=== PATIENT | female | born 1945 | race Caucasian/White ===

== ENCOUNTER 2016-03-27 11:05 | Observation (INO) ==
[2016-03-27] MEDS ORDERED: Ipratropium/Albuterol Neb 3 ML IH ONE (11:10)
[2016-03-27] MEDS ORDERED: methylPREDNISolone 125 MG/2 ML VIAL IVP ONE (11:10)
--- NOTE | 2016-03-27 11:12 | Emergency Department Note ---
Disposition Clinical Impression: Acute exacerbation of chronic obstructive pulmonary disease Disposition: Admitted As Inpatient Time of Disposition: 12:25 SOB HPI - General Chief Complaint: ED Shortness of Breath/Dyspnea Stated Complaint: SOB Source: patient Mode of arrival: ambulatory Limitations: no limitations Nursing Notes Reviewed: Yes Vital Signs Reviewed: Yes - History of Present Illness 70-year-old female history of COPD on 4 L nasal cannula, her baseline, patient expresses full code, patient with shortness of breath for last 3 days she has had worsening productive cough, she was seen in the emergency department last night. She came from home, she is been treated with azithromycin and prednisone , however has had worsening shortness of breath last few days. Brought in by EMS EMS did deliver one DuoNeb treatment. Patient states that she has intermittent shortness of breath associated with some chest pain and discomfort. Patient reports subjective fevers at home, denies abdominal pain nausea vomiting Pt Subjective Complaint: shortness of breath Onset (ago): day(s) (4) Severity: moderate Consistency/Duration: intermittent Improves with: oxygen Worsens with: lying flat, exertion Known history of: COPD Associated symptoms: Reports: fever, cough, wheezing, sputum production. Denies : chest pain Treatment prior to arrival: oxygen Cough present: Yes Cough Frequency: Continuous Sputum production: Yes Sputum Amount: Scant Sputum Color: White - Related Data Home oxygen amount: 4 liters Home Medications Medication Instructions Recorded Confirmed Oxygen 4 l NS CONT 10/26/14 03/27/16 Hydrocodone/Acetaminophen 1 tab PO QID PRN 04/12/15 03/27/16 [Hydrocodon-Acetaminophn 10-325] Duloxetine [Cymbalta] 30 mg PO DAILY 08/12/15 03/27/16 Albuterol Neb [Proventil Neb] 2.5 mg IH Q6H PRN 03/27/16 03/27/16 Albuterol Sulfate [Albuterol 2 puff IH Q4H PRN 03/27/16 03/27/16 Inhaler] Pregabalin [Lyrica] 50 mg PO DAILY 03/27/16 03/27/16 Tiotropium [Spiriva] 18 mcg IH DAILY 03/27/16 03/27/16 Allergies Allergy/AdvReac Type Severity Reaction Status Date / Time Sulfa (Sulfonamide Allergy Swelling Verified 02/05/16 18:58 Antibiotics) of Lip/Tongue/Throat Review of Systems: A 14 point ROS was obtained and was negative except as per below or as documented in the HPI. Constitutional: Denies: fever, chills, weakness, weight change Eyes: Denies: eye pain, eye discharge, vision change ENT: Denies: ear pain, throat pain, hearing loss, epistaxis, congestion, Cardiovascular: Denies: chest pain, palpitations, dyspnea on exertion, edema, syncope Respiratory: cough, dyspnea, wheezes Denies:, hemoptysis, stridor Gastrointestinal: Denies: abdominal pain, nausea, vomiting. diarrhea, constipation, hematemesis, hematochezia Genitourinary: Denies: urgency, dysuria, frequency, hematuria Musculoskeletal: Denies: back pain, neck pain, arthralgia, myalgia Integumentary: Denies: rash, abrasion, lesions Neurological: Denies: headache, weakness, numbness, paresthesias, confusion, abnormal gait Psychiatric: Denies: anxiety, depression, suicidal thoughts, homicidal thoughts , Endocrine: Denies: fatigue Hematological/Lymphatic: Denies: easy bleeding, easy bruising Allergic/Immunologic: Denies: facial swelling, urticaria All systems ED: reviewed and negative except as stated. Past Medical History - Past Medical History Attestation: Yes The following information was validated with the patient. Source: patient Medical history: Reports: arthritis, asthma, cancer (lung - S/P Chemo and radiation therapy, here and at [facility]. In remission), COPD, GERD, hyperlipidemia, hypertension, other Surgical history: Reports: hip replacement, other Psychiatric history: Reports: anxiety, depression DIRECTOR OF REIMBURSEMENT history: Reports: no DIRECTOR OF REIMBURSEMENT history - Social History Smoking Status: Current every day smoker Smokeless Tobacco Status: No Alcohol use: Reports: none Drug use: Reports: none Physical Exam General: Cachectic female appears older than her stated age mod resp distress Head: NCAT, no lesions Eyes: sclera anicteric, conjunctiva normal, PERRLA bilaterally, EOMI Bilaterally Ears: normal inspection, external ear wnl Nose: nasal septum nondeviated, sinuses nontender Throat: good dentition, mucous membranes moist Neck: no lymphadenopathy, trachea midline no deviation, no JVD Resp: Diffuse wheezes, diffuse breath sounds bilaterally. CV: RRR, normal S1 and S2, no m/g/r, Pulses +2 Rad, +2 DP/PT Abdomen: Soft, NTND, no hepatosplenomegaly, no hernias, Negative Rovsing's sign , Negative Hess's sign Back: normal inspection, no tenderness to palpation, Negative CVA tenderness bilaterally Neuro: A&O3, CN II-XII grossly intact bilaterally, no motor or sensory deficits bilaterally, gait normal, GCS 15 [id number] Ext: normal inspection, symmetric Active and Passive ROM UE and LE bilaterally , no pedal edema bilaterally Psych: normal mood, normal affect Skin: No rashes, skin warm, dry, intact Course Course Narrative: 70-year-old female with acute exacerbation of COPD, will anabella treatments and steroids, reassess. - Reevaluation(s) Reevaluation #1: Troponin negative, white count negative, patient does have diffuse wheezes after reassessment with redo, she was more diminished prior to the breathing treatment, her sats 100% on room air, I do suspect that she is worsened, social work has evaluated the patient at bedside, will admit to medicine service for COPD exacerbation and SNF placement. Time: 12:26 Reevaluation #2: Admitted Dr Mustafa Time: 12:26 Vital Signs Temperature 98.2 F 03/27/16 11:22 Pulse Rate 89 03/27/16 11:22 Respiratory Rate 24 03/27/16 11:22 Blood Pressure 149/92 03/27/16 11:22 O2 Sat by Pulse Oximetry 100 03/27/16 11:22 Temperature 98.2 F 03/27/16 11:22 Pulse Rate 89 03/27/16 11:22 Respiratory Rate 24 03/27/16 12:23 Blood Pressure 149/92 03/27/16 11:22 O2 Sat by Pulse Oximetry 100 03/27/16 12:23 Oxygen Delivery Oxygen Delivery Nasal Cannula Shortness of Breath/Dyspnea - Differential Diagnosis Likely: acute exacerbation of chronic obstructive airways disease, congestive heart failure, pulmonary embolism - Medical Records Medical records reviewed: Yes I reviewed the patient's medical records. - Lab Data Lab results reviewed: Yes I reviewed the patient's lab results. Result diagrams: 03/27/16 11:31 03/27/16 11:31 Lab Results 03/27/16 03/27/16 03/27/16 Range/Units 11:31 11:31 11:31 WBC 5.6 (4.3-11.1) K/mcL RBC 4.52 (3.82-4.97) M/mcL Hgb 14.1 (11.5-15.4) g/dL Hct 42.4 (35.3-44.9) % MCV 93.8 (83.0-100.0) fL MCH 31.2 (28.0-33.3) pg MCHC 33.3 (31.6-35.5) g/dL RDW 13.4 (11.5-14.5) % Plt Count 292 (140-400) K/mcL MPV 8.8 L (9.4-12.4) fL Immature Gran % 0.4 (0-4) % Seg Neutrophils % 76.9 % Lymphocytes % 13.7 % Monocytes % 8.1 % Eosinophils % 0.5 % Basophils % 0.4 % Neutrophils # 4.3 (1.6-8.9) K/mcL Lymphocytes # 0.8 (0.6-4.6) K/mcL Monocytes # 0.5 (0.0-1.3) K/mcL Eosinophils # 0.0 (0.0-0.6) K/mcL Basophils # 0.0 (0.0-0.2) K/mcL PT 10.2 (9.4-12.1) Seconds INR 1.0 APTT 28.6 (26.0-36.0) Seconds Sodium 127 L (136-145) mEq/L Potassium 4.0 (3.5-4.5) mEq/L Chloride 91 L (98-109) mEq/L Carbon Dioxide 29 (19-29) mEq/L BUN 10 (7-20) mg/dL Creatinine 0.59 (0.57-1.11) mg/dL Est GFR ( Amer) > 60 (> 60) Est GFR (Non-Af Amer) > 60 (> 60) BUN/Creatinine Ratio 17 (6-26) Glucose 96 (70-99) mg/dL Calculated Osmolality 263 L (280-300) Lactic Acid (0.5-2.2) mmol/L Calcium 9.7 (8.6-10.8) mg/dL Troponin I (0-0.03) ng/mL B-Natriuretic Peptide (0-100) pg/mL 03/27/16 03/27/16 03/27/16 Range/Units 11:31 11:31 11:31 WBC (4.3-11.1) K/mcL RBC (3.82-4.97) M/mcL Hgb (11.5-15.4) g/dL Hct (35.3-44.9) % MCV (83.0-100.0) fL MCH (28.0-33.3) pg MCHC (31.6-35.5) g/dL RDW (11.5-14.5) % Plt Count (140-400) K/mcL MPV (9.4-12.4) fL Immature Gran % (0-4) % Seg Neutrophils % % Lymphocytes % % Monocytes % % Eosinophils % % Basophils % % Neutrophils # (1.6-8.9) K/mcL Lymphocytes # (0.6-4.6) K/mcL Monocytes # (0.0-1.3) K/mcL Eosinophils # (0.0-0.6) K/mcL Basophils # (0.0-0.2) K/mcL PT (9.4-12.1) Seconds INR APTT (26.0-36.0) Seconds Sodium (136-145) mEq/L Potassium (3.5-4.5) mEq/L Chloride (98-109) mEq/L Carbon Dioxide (19-29) mEq/L BUN (7-20) mg/dL Creatinine (0.57-1.11) mg/dL Est GFR ( Amer) (> 60) Est GFR (Non-Af Amer) (> 60) BUN/Creatinine Ratio (6-26) Glucose (70-99) mg/dL Calculated Osmolality (280-300) Lactic Acid 0.8 (0.5-2.2) mmol/L Calcium (8.6-10.8) mg/dL Troponin I 0.00 (0-0.03) ng/mL B-Natriuretic Peptide 75 (0-100) pg/mL - Radiology Data Radiology results reviewed: Yes I reviewed the patient's radiology results. Chest X-Ray 03/27/16 11:10 IMPRESSION: Stable chest. Stable volume loss and opacification in the right upper lobe. Moderate emphysematous changes. D/ / 03/27/2016 11:39:34 Juventino Boston MD / [email or web address] Interpreting Provider: Juventino Boston MD - EKG Data EKG attestation: Yes I reviewed and interpreted this EKG. EKG shows normal: Reports: sinus rhythm (97 bpm UT 143 QRS [address]Tc [address] segment elevations or depressions) Rate: Reports: normal Rhythm: Reports: NSR [place]/QRS: Reports: normal When compared to previous EKG there are: no significant changes Interpretation: Reports: no acute changes Attestation Statement - Attestation Attestation: I examined this patient and my medical decision-making was reviewed with the DECORATOR INSPECTOR/PA/Advanced Practice Nurse/Resident Physician. I agree with the documented findings, disposition and treatment plan as described except to the extent set forth below. Patient emergency department difficulty in breathing. Patient has a long- standing history of COPD. Seen recently for the same. Not getting any better. Cough. On exam she is coughing. Lungs with diffuse expiratory wheezing. Heart tachycardia but regular. Plan. Nebs and steroids. Patient failed outpatient treatment. Will be admitted to the hospital.
[2016-03-27 11:41] LABS: Basophils % 0.4 %; Eosinophils % 0.5 %; Hematocrit 42.4 % (35.3-44.9); Hemoglobin 14.1 g/dL (11.5-15.4); Immature Granulocytes % 0.4 % (0-4); Lymphocytes # 0.8 K/mcL (0.6-4.6); Lymphocytes % 13.7 %; Mean Corpuscular HGB Conc 33.3 g/dL (31.6-35.5); Mean Corpuscular Hemoglobin 31.2 pg (28.0-33.3); Mean Corpuscular Volume 93.8 fL (83.0-100.0); Mean Platelet Volume 8.8 fL (9.4-12.4); Monocytes # 0.5 K/mcL (0.0-1.3); Monocytes % 8.1 %; Neutrophils # 4.3 K/mcL (1.6-8.9); Platelet Count 292 K/mcL (140-400); Red Blood Count 4.52 M/mcL (3.82-4.97); Red Cell Distribution Width 13.4 % (11.5-14.5); Segmented Neutrophils % 76.9 %
[2016-03-27 11:51] LABS: Prothrombin Time 10.2 Seconds (9.4-12.1)
[2016-03-27 11:53] LABS: Activated Partial Thrombo Time 28.6 Seconds (26.0-36.0); BUN/Creatinine Ratio 17 (6-26); Blood Urea Nitrogen 10 mg/dL (7-20); Calcium 9.7 mg/dL (8.6-10.8); Carbon Dioxide 29 mEq/L (19-29); Chloride 91 mEq/L (98-109); Glucose 96 mg/dL (70-99); Osmolality,Calculated 263 (280-300); Sodium 127 mEq/L (136-145); eGFR For African Americans > 60 (> 60); eGFR For Non-African Americans > 60 (> 60)
[2016-03-27] MEDS ORDERED: *HR* HYDROcodone/Acet 5/325 mg TABLET PO ONE (12:38)
[2016-03-27] MEDS ORDERED: Naloxone 0.4 MG/ML INJ IVP PRN (12:41)
[2016-03-27] MEDS ORDERED: Ondansetron ODT 4 MG TAB.RAPDIS SL PRN (12:41)
[2016-03-27] MEDS ORDERED: Ipratropium/Albuterol Neb 3 ML IH PRN (12:43)
[2016-03-27] MEDS ORDERED: NON-FORMULARY MEDICATION 1 EACH EACH (Oxygen [Oxygen] 4 L) NS SCH (12:45)
[2016-03-27] MEDS ORDERED: amLODIPine 5 MG TABLET PO SCH (13:45)
--- NOTE | 2016-03-27 13:47 | Internal Med History&Physical ---
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 Continue O2 supplementation as needed Continue to monitor O2 saturation, goal O2 sat 89-92% Monitor off antibiotics at this time Consider pulmonary eval if patient does not improve (2) Hypertension Current visit: Yes Status: Acute Reported to have history of hypertension, and was noted to be hypertensive in the ER Repeat BP within acceptable range Patient reports of not taking any antihypertensives at home We will monitor off antihypertensives at this time Closely monitor blood pressure If hypertensive, start amlodipine 5 mg by mouth daily Qualifiers: Hypertension type: essential hypertension Qualified Code(s): I10 - Essential (primary) hypertension (3) Lung cancer Current visit: Yes Status: Acute 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 Currently in remission, however has not followed up with her PET scan appointments for further evaluation for metastatic disease Palliative care consulted, as patient wishes to know about her treatment options if she were to forego chemotherapy and any other aggressive treatment plans Continue home pain control Qualifiers: Laterality: right Lung location: upper lobe of lung Qualified Code(s): C34.11 - Malignant neoplasm of upper lobe, right bronchus or lung (4) Electrolyte abnormality Current visit: Yes Status: Acute Patient reported of not eating and drinking well for the last couple of days Noted to be hyponatremic We will start gentle IV fluid hydration PT OT eval when able Patient lives alone, may need more assistance after discharge (5) DVT prophylaxis Current visit: No Status: Acute Lovenox subcutaneous (6) Cigarette smoker Current visit: Yes Status: Acute Extensive smoking cessation counseling provided Patient states she is trying to quit but it is extremely difficult and she is not completely ready at this time Nicotine replacement therapy provided Internal Medicine - H&P: HPI Chief complaint: shortness of breath Admitted From: Home Plans for Post Hospital Care: Transfer Long Term Facility History of present illness: Ms. Quiroga is a 70 year old female with medical history of COPD on home oxygen, asthma, emphysema, arthritis, hypertension, right upper lobe stage III squamous cell carcinoma of the lung who presents to the ER for worsening shortness of breath. Patient was seen in the ER one day ago for the same complaint and was discharged home with oral prednisone and azithromycin. Patient states she did not take the prednisone at home because prednisone makes her back hurt, and her shortness of breath was not relieved with her nebulizer treatments at home due to which she decided to come to the ER. She received Solu-Medrol and duo nebs in the ER with adequate relief of her shortness of breath. At this time she is saturating well on nasal cannula, states she feels better since her arrival. Denies any cough, sore throat, fever , or chills. No chest pain, palpitations, abdominal pain, nausea, vomiting reported at this time. Patient's daughter is present at bedside who states that patient finished her chemotherapy and radiation therapy for her lung cancer about 2 years ago. However she has been scared to follow up to get her PET scan, as she is scared that the cancer may have metastasized. At this point, patient has canceled 5 of her PET scan appointments. Patient has history of chronic lower back pain, consistent with neuropathy, and undergoes nerve conduction procedures in [facility]. I had a detailed discussion about patient's advanced directives with the patient and the daughter. As per daughter the patient keeps changing her mind from DNR to full code. Patient states she does not want to undergo aggressive resuscitation, nor does she want to go through any more chemotherapy, however she is afraid at this time. She is not ready to declare DNR CODE STATUS, and wishes to have more time to think about it. Patient is to remain full code at this time. Social Hx: Everyday smoker (cut down to half ppd, smoker for 40+years) Past Med Surg Social Fam HX - Past Medical History Medical history: arthritis, asthma, cancer (lung - S/P Chemo and radiation therapy, here and at [facility]. In remission), COPD, GERD, hyperlipidemia, hypertension, other Psychiatric history: anxiety, depression - Past Surgical History Surgical History: hip replacement, other - Social History Smoking Status: Current every day smoker Smokeless Tobacco Status: No Alcohol use: none Drug use: none - Family History Mother Living Status: Hx Family Cancer: Yes (Brain) Father Living Status: Hx Family Cancer: Yes (Lung) Internal Medicine - H&P: Meds Oxygen 4 l NS CONT 10/26/14 [History] Hydrocodone/Acetaminophen [Hydrocodon-Acetaminophn 10-325] 1 tab PO QID PRN [History] Duloxetine [Cymbalta] 30 mg PO DAILY 08/12/15 [History] Albuterol Neb [Proventil Neb] 2.5 mg IH Q6H PRN 03/27/16 [History] Albuterol Sulfate [Albuterol Inhaler] 2 puff IH Q4H PRN 03/27/16 [History] Pregabalin [Lyrica] 50 mg PO DAILY 03/27/16 [History] Tiotropium [Spiriva] 18 mcg IH DAILY 03/27/16 [History] Allergies Sulfa (Sulfonamide Antibiotics) Allergy (Verified 02/05/16 18:58) Swelling of Lip/Tongue/Throat Hives All Systems PM: A 10-system review of systems was performed and is negative for pertinent findings except as documented above in the HPI. - Constitutional Constitutional: as per HPI, weakness, no chills, no falls, no night sweats - Constitutional Vitals: Temp Pulse Resp BP Pulse Ox 98.2 F 89 24 155/98 100 03/27/16 11:22 03/27/16 11:22 03/27/16 12:34 03/27/16 12:34 03/27/16 12:23 General appearance: Present: cooperative, A&O X 3 (frail appearing elderly female), pleasant, no acute distress, underweight, answers questions appropriately - Head Head exam: Present: atraumatic, normocephalic - Eye Eye exam: Present: normal appearance, conjuntiva pink, sclera anicteric - Respiratory Respiratory exam: Present: decreased breath sounds. Absent: respiratory distress, wheezes - Cardiovascular Cardiovascular exam: Present: RRR, +S1, +S2 - GI/Abdominal GI/Abdominal exam: Present: normal bowel sounds, soft. Absent: tenderness - Extremities Exam Extremities exam: Present: warm, radial pulses palpable and symetrical. Absent : calf tenderness, pedal edema, tenderness - Neurological Exam Neurological exam: Present: alert, oriented X3, no focal deficits - Psychiatric Psychiatric exam: Present: depressed Internal Med - H&P Results - Labs CBC & Chem 7: 03/27/16 11:31 03/27/16 11:31
[2016-03-27] MEDS: 0.9 % Sodium Chloride 1,000 ML IVC SCH (14:48)
[2016-03-27] MEDS: *HR* HYDROcodone/Acet 10/325 mg TABLET PO PRN ×2 (14:48→22:59)
[2016-03-27] MEDS: Nicotine 14 MG PATCH.TD24 TD SCH (14:48)
[2016-03-27] MEDS: Ipratropium/Albuterol Neb 3 ML IH SCH ×3 (16:31→23:47)
--- NOTE | 2016-03-27 16:36 | Palliative - Consult Note ---
Date of Encounter: 03/27/16 Time of Encounter: 14:00 - Assessment and Plan (1) Lower back pain Current Visit: Yes Status: Chronic Assessment and plan: The patient has been dealing with chronic low back pain for some time. She does follow with Dr. Waddell of [place]. She recently had an ablation to assist with chronic pain. Her daughter reports that it typically takes a few weeks for the ablation to become effective. She does take Whitharral 10 mg/325 mg approximately every 4-6 hours at home. She reports better pain relief with Whitharral than other medications. She would like to continue her pain medication regimen. Qualifiers: Chronicity: chronic Back pain laterality: midline Sciatica presence: with sciatica Sciatica laterality: bilateral sciatica Qualified Code(s): M54.41 - Lumbago with sciatica, right side; M54.42 - Lumbago with sciatica, left side; G89.29 - Other chronic pain (2) Acute exacerbation of chronic obstructive pulmonary disease Current Visit: Yes Status: Acute Assessment and plan: Management per hospitalist (3) Severe protein-calorie malnutrition Current Visit: No Status: Chronic Assessment and plan: Severe protein calorie malnutrition as evidenced by significant weight loss. With at least 10 pounds in the past 2 months. The patient's BMI is 16. Encourage meal preference and, meal supplementation, and allowing adequate time for conception. 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 (4) Counseling regarding advanced care planning and goals of care Current Visit: No Status: Acute Assessment and plan: Discussed goals of care with the patient and her daughter Sheri Florian. After discussing CODE STATUS options, the patient has elected to be a DNR arrest. After reviewing her documentation from prior visits, this appears to have been her previously known wish. We discussed discharge planning options in regards to extended care facility versus home. The patient is continuing to support extended care facility placement upon discharge. We also discussed hospice eligibility, hospice philosophy, hospice options. Ms. Quiroga is hospice eligible based on her COPD alone. The patient and her daughter are still considering options as far as hospice enrollment versus skilled need an ECF. We discussed insurance payments as far as maintaining a skilled need for insurance to continue pain. office services assistant will continue to follow with this and assist with discharge planning. (5) Therapeutic opioid induced constipation Current Visit: Yes Status: Chronic Assessment and plan: Opioid induced constipation has been a chronic problem for Ms. Quiroga. Will start bowel regimen of sennakot BID. (6) Lung cancer Current Visit: Yes Status: Acute Assessment and plan: Stable, oncology follow up was greater than one year ago. Qualifiers: Laterality: right Lung location: upper lobe of lung Qualified Code(s): C34.11 - Malignant neoplasm of upper lobe, right bronchus or lung (7) Anxiety about health Current Visit: Yes Status: Acute Assessment and plan: Ms. Quiroga has had anxiety for some time. She has chronically been on diazepam, but was recently stopped for an unknown reason. The patient is clearly in distress over her circumstances. Will start low-dose lorazepam to assist with symptom management. (8) Dyspnea Current Visit: Yes Status: Acute Assessment and plan: Supportive O2, activity as tolerated. Consider starting opioid therapy (ex. Roxanol 5mg every 2 hours as needed for dyspnea) if the patient desires to pursue more comfort care. Qualifiers: Dyspnea type: shortness of breath Qualified Code(s): R06.02 - Shortness of breath Palliative-CN HPI - Data of Consult Patient: known to practice within the last 3 years Consult date: 03/27/16 Requesting Physician: Rosa Tong Primary Care Provider: Caridad Rosales - Consult Narrative Palliative Care/Comfort Measures: Palliative care Reason for consult: Goals of care History of present illness: Ms. Quiroga is a 70 year old female known to the palliative care team from prior admission. She presented to [facility] with shortness of breath. Her shortness of breath has been ongoing, but worse over the last 3 days. She has had multiple ED visits over the past few days with 7 total ED visits over the past 2 months. The palliative care team was consulted to assist with goals of care due to her chronic illnesses. Ms. Quiroga has a history of COPD and lung cancer stage IIIA. She has not had oncology follow up in the past year due to her limitations from COPD and her anxiety. Ms. Quiroga has problems with chronic back pain (midline, radiation to bilateral legs, described as a deep ache/burning, rated 8/10). She follows with a painting manager in [place] (Dr. Harris) and had a recent ablation to help with pain management. She usually takes Whitharral 10/ 325mg every 4-6 hours at home to help with the pain. Her chronic use of opioids has led to difficulties with opioid induced constipation, and she occasionally takes laxatives to assist when her high fiber diet does not help. She reports being very limited in her activities due to her breathing. Her activity level is mostly sedentary and she is barely able to make it room to room in her apartment. She often has difficulty cooking for herself. More recently, she has had trouble with dyspnea during conversations. Her dyspnea has limited her ability to eat as well. She has lost > 4o# since October 2014. Ms. Quiroga lives alone and her children check on her. She has a life alert bracelet. CC: Rosa Tong Past Med Surg Social Fam HX - Past Medical History Source: patient, old records reviewed, obtained from family Medical history: arthritis, asthma, cancer (lung - S/P Chemo and radiation therapy, here and at [facility]. In remission), COPD, GERD, hyperlipidemia, hypertension, other Psychiatric history: anxiety, depression - Past Surgical History Surgical History: hip replacement, other - Social History Smoking Status: Current every day smoker Smokeless Tobacco Status: No Alcohol use: none Drug use: none Occupational status: disabled Current living situation: Home - Independent Activity Level: Uses cane/walker, Mostly sedentary - Family History Mother Living Status: Hx Family Cancer: Yes (Brain) Father Living Status: Hx Family Cancer: Yes (Lung) Medications and Allergies Oxygen 4 l NS CONT 10/26/14 [History] Hydrocodone/Acetaminophen [Hydrocodon-Acetaminophn 10-325] 1 tab PO QID PRN [History] Duloxetine [Cymbalta] 30 mg PO DAILY 08/12/15 [History] Albuterol Neb [Proventil Neb] 2.5 mg IH Q6H PRN 03/27/16 [History] Albuterol Sulfate [Albuterol Inhaler] 2 puff IH Q4H PRN 03/27/16 [History] Pregabalin [Lyrica] 50 mg PO DAILY 03/27/16 [History] Tiotropium [Spiriva] 18 mcg IH DAILY 03/27/16 [History] Allergies Sulfa (Sulfonamide Antibiotics) Allergy (Verified 02/05/16 18:58) Swelling of Lip/Tongue/Throat Hives - Constitutional Constitutional ROS PAL: decreased appetite, lethargy, weight loss - EENT Eyes: requires corrective lenses Ears: decreased hearing Ears, nose, mouth, throat: no hoarseness, no mouth pain, no sore throat - Cardiovascular Cardiovascular ROS: dyspnea on exertion, no chest pain, no pedal edema - Respiratory Respiratory: cough (non-productive), dyspnea, dyspnea on exertion, wheezing, no hemoptysis - Gastrointestinal Gastrointestinal: constipation (chronic opioid induced constipation), no diarrhea, no nausea, no vomiting - Genitourinary Palliative ROS female: urinary incontinence - Musculoskeletal Musculoskeletal ROS IM: back pain (chronic low back pain) - Integumentary ROS Integumentary: no skin pain, no sores, no wounds - Neurological Neurological ROS: confusion, lack of coordination, paresthesias (bilateral plantar surfaces of the feet) - Psychiatric Psychiatric general PM: anxiety, depression Palliative Care-Exam - Constitutional Vitals: Temp Pulse Resp BP Pulse Ox 98.0 F 85 22 138/85 98 03/27/16 15:48 03/27/16 15:48 03/27/16 16:32 03/27/16 16:32 03/27/16 16:32 Exam: 70 year old female appearing older than stated age. Appears anxious and tearful. - Head Head Exam: Present: atraumatic - Eye Eye exam: Present: EOMI Pupils: Present: PERRL - ENT ENT exam: Present: mucous membranes dry - Expanded ENT Exam Teeth exam: Present: edentulous (dentures intact) - Respiratory Respiratory exam: Present: accessory muscle use, respiratory distress (with activity), rhonchi, wheezes Additional comments: pursed lip breathing, dyspnea with conversation - Cardiovascular Cardiovascular exam: Present: RRR - GI/Abdominal Exam GI/Abdominal exam: Present: normal bowel sounds, soft. Absent: tenderness - Rectal Rectal exam: Present: deferred - Neurological Exam Neurological exam: Present: alert, oriented X3, no focal deficits, strengths equal and symetr throughout - Skin Skin exam: Present: dry, warm Additional comments: ruberous appearance to bilateral feet. Internal Medicine - CN: Reslt - Labs CBC & Chem 7: 03/27/16 11:31 03/27/16 11:31 - ABG Interpretation ABG results: PT/INR, D-dimer PT 10.2 Seconds (9.4-12.1) 03/27/16 11:31 Consult Discharge Plan - Plan Referrals: Caridad Rosales MD [Primary Care Provider] - Palliative Quality Palliative Quality: Screen for Code Status: Yes, Screen for Goals of Care: Yes, Screen for Pain: Yes, If Pain Regimen Started, Initiate Bowel Regimen: Yes, Screen for Nausea/Vomitting: Yes Code Status: 03/27/16 12:41 Resuscitation Status: Active [RES] Routine Comment: Resuscitation Status: Full Code Resuscitation Status: Active [RES] Routine Comment: Resuscitation Status: DNR-Comfort Care-Arrest
[2016-03-27] MEDS: *HR* LORazepam 0.5 MG TABLET PO PRN (18:39)
[2016-03-27] MEDS: Pregabalin 50 MG CAPSULE PO SCH (20:27)
[2016-03-27] MEDS: Sennosides 8.6 MG TABLET PO SCH (20:27)
[2016-03-28] MEDS: *HR* LORazepam 0.5 MG TABLET PO PRN ×2 (03:17→15:45)
[2016-03-28 03:23] LABS: Basophils % 0.3 %; Hematocrit 39.1 % (35.3-44.9); Hemoglobin 13.4 g/dL (11.5-15.4); Immature Granulocytes % 0.6 % (0-4); Lymphocytes # 0.5 K/mcL (0.6-4.6); Lymphocytes % 15.4 %; Mean Corpuscular HGB Conc 34.3 g/dL (31.6-35.5); Mean Corpuscular Volume 93.3 fL (83.0-100.0); Mean Platelet Volume 10.1 fL (9.4-12.4); Monocytes # 0.4 K/mcL (0.0-1.3); Neutrophils # 2.6 K/mcL (1.6-8.9); Platelet Count 238 K/mcL (140-400); Red Blood Count 4.19 M/mcL (3.82-4.97); Red Cell Distribution Width 13.5 % (11.5-14.5); Segmented Neutrophils % 73.7 %
[2016-03-28 03:38] LABS: BUN/Creatinine Ratio 17 (6-26); Blood Urea Nitrogen 10 mg/dL (7-20); Calcium 9.4 mg/dL (8.6-10.8); Carbon Dioxide 27 mEq/L (19-29); Chloride 99 mEq/L (98-109); Glucose 109 mg/dL (70-99); Magnesium 1.8 mg/dL (1.6-2.6); Osmolality,Calculated 274 (280-300); Phosphorous 3.8 mg/dL (2.3-4.7); Potassium 4.1 mEq/L (3.5-4.5); Sodium 132 mEq/L (136-145); eGFR For African Americans > 60 (> 60); eGFR For Non-African Americans > 60 (> 60)
[2016-03-28] MEDS: Ipratropium/Albuterol Neb 3 ML IH SCH ×6 (04:40→23:49)
[2016-03-28] MEDS: *HR* HYDROcodone/Acet 10/325 mg TABLET PO PRN ×4 (05:58→23:45)
[2016-03-28] MEDS ORDERED: *HR* Enoxaparin 30 MG/0.3 ML SYRINGE SQ SCH (06:00)
[2016-03-28] MEDS: *HR* Enoxaparin 40 MG/0.4 ML SYRINGE SQ SCH (06:24)
[2016-03-28] MEDS: MethylPREDNISolone 40 MG/ML VIAL IVP SCH ×2 (06:24→17:56)
[2016-03-28] MEDS: Tiotropium 18 MCG inhalation IH SCH (07:50)
[2016-03-28] MEDS: Sennosides 8.6 MG TABLET PO SCH ×2 (08:38→21:11)
[2016-03-28] MEDS: Nicotine 14 MG PATCH.TD24 TD SCH (08:38)
--- NOTE | 2016-03-28 08:52 | Internal Med Progress Note ---
<Aakash Cook - Last Filed: 03/28/16 12:45> Date of Encounter: 03/28/16 Time of Encounter: 08:25 - Assessment and plan (1) Acute exacerbation of chronic obstructive pulmonary disease Current Visit: Yes Status: Acute Assessment and plan: Suggested by worsening dyspnea, productive cough CXR reveiwed, known setting of RUL NSCLC. Would hold off on abx at this time. She is not undergoing active chemo, does not reside in [facility]. Cont systemic steroids, taper as indicated. From 05/11/13 PFTs FVC: 1.75, 60% of predicted. FEV1: 0.79, 36% of predicted. Severe obstructive ventilatory impairment with no significant bronchodilator response. End stage COPD in setting of known lung cancer, portends poor prognosis. Appreciate palliative team following. (2) Lung cancer Current Visit: Yes Status: Acute Assessment and plan: RUL NSCLC followed by Dr. Randhawa. Qualifiers: Laterality: right Lung location: upper lobe of lung Qualified Code(s): C34.11 - Malignant neoplasm of upper lobe, right bronchus or lung (3) Electrolyte abnormality Current Visit: Yes Status: Acute Assessment and plan: Hyponatremia 127 on admission 03/27/16, acute on chronic from 10/201603/28/16 Na 132. Monitor. (4) DVT prophylaxis Current Visit: No Status: Acute Assessment and plan: Cont Lovenox - Subjective Interval history: Patient seen/eval at bedside, H&P and interval events reviewed. She would affirm general medical history including COPD, continues to smoke, RUL lung cancer followed by Dr. Randhawa. Affirms dyspnea, subjective chills, productive cough, and pleuritic discomfort. No dysphagia or odynophagia. - Constitutional Vitals: Temp Pulse Resp BP Pulse Ox 97.6 F 103 16 143/91 96 03/28/16 07:38 03/28/16 07:38 03/28/16 07:38 03/28/16 07:38 03/28/16 07:38 General appearance: Present: cooperative, A&O X 3 (frail appearing elderly female), pleasant, underweight, answers questions appropriately - Head Head exam: Present: atraumatic, normocephalic - Eye Eye exam: Present: EOMI, sclera anicteric - ENT ENT exam: Present: mucous membranes moist Additional comments: tobacco stains, no mucositis or thrush - Respiratory Respiratory exam: Present: accessory muscle use, rhonchi (diffuse ronchi all aquino, no crackles), wheezes (end exp) Additional comments: speaking in short phrases, using acc muscles - Cardiovascular Cardiovascular exam: Present: +S1, +S2, tachycardia - GI/Abdominal GI/Abdominal exam: Present: soft, no peritoneal signs. Absent: guarding - Extremities Exam Extremities exam: Present: warm, radial pulses palpable and symetrical. Absent : mottling, pedal edema Internal Medicine: Result - Labs CBC & Chem 7: 03/28/16 02:45 03/28/16 02:45 Labs: Short CBC 03/28/16 Range/Units 02:45 WBC 3.5 L (4.3-11.1) K/mcL Hgb 13.4 (11.5-15.4) g/dL Hct 39.1 (35.3-44.9) % Plt Count 238 (140-400) K/mcL Neutrophils # 2.6 (1.6-8.9) K/mcL BMP 03/28/16 02:45 Sodium 132 L Potassium 4.1 Chloride 99 Carbon Dioxide 27 BUN 10 Creatinine 0.60 Glucose 109 H Calcium 9.4 - ABG Interpretation ABG results: PT/INR, D-dimer PT 10.2 Seconds (9.4-12.1) 03/27/16 11:31 Consult Discharge Plan - Plan Referrals: Caridad Rosales MD [Primary Care Provider] - <Americo Nieto - Last Filed: 03/28/16 14:07> Date of Encounter: 03/28/16 - Constitutional Vitals: Temp Pulse Resp BP Pulse Ox 98.3 F 122 17 116/72 100 03/28/16 11:29 03/28/16 11:29 03/28/16 11:29 03/28/16 11:29 03/28/16 11:29 Internal Medicine: Result - Labs CBC & Chem 7: 03/28/16 02:45 03/28/16 02:45 Labs: Short CBC 03/28/16 Range/Units 02:45 WBC 3.5 L (4.3-11.1) K/mcL Hgb 13.4 (11.5-15.4) g/dL Hct 39.1 (35.3-44.9) % Plt Count 238 (140-400) K/mcL Neutrophils # 2.6 (1.6-8.9) K/mcL BMP 03/28/16 02:45 Sodium 132 L Potassium 4.1 Chloride 99 Carbon Dioxide 27 BUN 10 Creatinine 0.60 Glucose 109 H Calcium 9.4 - ABG Interpretation ABG results: PT/INR, D-dimer PT 10.2 Seconds (9.4-12.1) 03/27/16 11:31 - Attending Attestation I examined this patient and my medical decision-making was reviewed with the DIE FORGER/PA/Advanced Practice Nurse/Resident Physician. I agree with the documented findings, disposition and treatment plan as described except to the extent set forth below. COPD exacerbation, patient with poor baseline status, and evidently malnourished. Continue with current management. Palliative care recommendations appreciated.
[2016-03-28] MEDS ORDERED: Pregabalin 50 MG CAPSULE PO SCH (09:00)
--- NOTE | 2016-03-28 09:15 | Palliative Progress Note ---
Date of Encounter: 03/28/16 Time of Encounter: 08:30 - Assessment and plan (1) Lower back pain Current Visit: Yes Status: Chronic Assessment and plan: Patient states her is working well for her, however might need to be a little bit more frequent. Currently she is getting it 4 times a day I have increased it to every 4 hours which at times at home she is taking it at that level. Watch. Qualifiers: Chronicity: chronic Back pain laterality: midline Sciatica presence: with sciatica Sciatica laterality: bilateral sciatica Qualified Code(s): M54.41 - Lumbago with sciatica, right side; M54.42 - Lumbago with sciatica, left side; G89.29 - Other chronic pain (2) Acute exacerbation of chronic obstructive pulmonary disease Current Visit: Yes Status: Acute Assessment and plan: Management per hospitalist team (3) Lung cancer Current Visit: Yes Status: Acute Assessment and plan: Possibly in remission however the patient does not know. At this time she does not think she wants to continue any further care for this. Is considering hospice but has made no decisions. Qualifiers: Laterality: right Lung location: upper lobe of lung Qualified Code(s): C34.11 - Malignant neoplasm of upper lobe, right bronchus or lung (4) Therapeutic opioid induced constipation Current Visit: Yes Status: Chronic Assessment and plan: On bowel regimen but will increase the senna. to watch. (5) Counseling regarding advanced care planning and goals of care Current Visit: No Status: Acute Assessment and plan: DNRCCA. She [facility] to go to [facility]. She is considering enrollment in hospice at that time. He has made no decisions on this yet. - Time Spent With Patient Total time spent is greater than 50% in coordination of care (as documented) at patient's floor/unit and/or counseling patient: - Subjective Interval history: Patient states she is doing well this morning but is having some chest discomfort. Feels that her norco does work well for her but may be a bit more frequent would be helpful. The van working quite well without causing her any undue side effect. - Constitutional Vitals: Abnormal lab results WBC 3.5 K/mcL (4.3-11.1) L 03/28/16 02:45 Lymphocytes # 0.5 K/mcL (0.6-4.6) L 03/28/16 02:45 Sodium 132 mEq/L (136-145) L 03/28/16 02:45 Glucose 109 mg/dL (70-99) H 03/28/16 02:45 Calculated Osmolality 274 (280-300) L 03/28/16 02:45 General appearance: Present: no acute distress - Head Head exam: Present: atraumatic, normal inspection - Eye Eye exam: Present: normal appearance - ENT ENT exam: Present: mucous membranes moist - Respiratory Respiratory exam: Present: decreased breath sounds, rhonchi - Cardiovascular Cardiovascular exam: Present: RRR, tachycardia - GI/Abdominal GI/Abdominal exam: Present: normal bowel sounds, soft. Absent: tenderness - Extremities Exam Extremities exam: Present: normal inspection. Absent: pedal edema, tenderness - Neurological Exam Neurological exam: Present: alert, oriented X3 - Psychiatric Psychiatric exam: Present: normal affect, normal mood. Absent: agitated, anxious - Skin Skin exam: Present: dry, warm Palliative Quality Palliative Quality: Screen for Code Status: Yes, Screen for Goals of Care: Yes, Screen for Pain: Yes, If Pain Regimen Started, Initiate Bowel Regimen: Yes, Screen for Nausea/Vomitting: Yes Code Status: 03/27/16 12:41 Resuscitation Status: Active [RES] Routine Comment: Resuscitation Status: Full Code Resuscitation Status: Active [RES] Routine Comment: Resuscitation Status: DNR-Comfort Care-Arrest - Labs CBC & Chem 7: 03/28/16 02:45 03/28/16 02:45 Labs: Laboratory Results - last 24 hr 03/28/16 03/28/16 02:45 02:45 WBC 3.5 L RBC 4.19 Hgb 13.4 Hct 39.1 MCV 93.3 MCH 32.0 MCHC 34.3 RDW 13.5 Plt Count 238 MPV 10.1 Immature Gran % 0.6 Seg Neutrophils % 73.7 Lymphocytes % 15.4 Monocytes % 10.0 Eosinophils % 0.0 Basophils % 0.3 Neutrophils # 2.6 Lymphocytes # 0.5 L Monocytes # 0.4 Eosinophils # 0.0 Basophils # 0.0 Sodium 132 L Potassium 4.1 Chloride 99 Carbon Dioxide 27 BUN 10 Creatinine 0.60 Est GFR ( Amer) > 60 Est GFR (Non-Af Amer) > 60 BUN/Creatinine Ratio 17 Glucose 109 H Calculated Osmolality 274 L Calcium 9.4 Phosphorus 3.8 Magnesium 1.8 - ABG Interpretation ABG results: PT/INR, D-dimer PT 10.2 Seconds (9.4-12.1) 03/27/16 11:31 Consult Discharge Plan - Plan Referrals: Caridad Rosales MD [Primary Care Provider] -
[2016-03-28] MEDS ORDERED: Sennosides 8.6 MG TABLET PO SCH (09:21)
[2016-03-28] MEDS: 0.9 % Sodium Chloride 1,000 ML IVC SCH (11:32)
[2016-03-28] MEDS: Pregabalin 50 MG CAPSULE PO SCH (20:36)
[2016-03-29 03:21] LABS: Basophils % 0.1 %; Hematocrit 36.6 % (35.3-44.9); Hemoglobin 12.2 g/dL (11.5-15.4); Immature Granulocytes % 0.7 % (0-4); Immature Platelets 3.3 % (1.1-6.1); Lymphocytes # 0.5 K/mcL (0.6-4.6); Lymphocytes % 5.2 %; Mean Corpuscular HGB Conc 33.3 g/dL (31.6-35.5); Mean Corpuscular Hemoglobin 31.7 pg (28.0-33.3); Mean Corpuscular Volume 95.1 fL (83.0-100.0); Mean Platelet Volume 9.2 fL (9.4-12.4); Monocytes # 0.3 K/mcL (0.0-1.3); Platelet Count 269 K/mcL (140-400); Red Blood Count 3.85 M/mcL (3.82-4.97); Red Cell Distribution Width 13.8 % (11.5-14.5)
[2016-03-29 03:28] LABS: Neutrophils # 8.9 K/mcL (1.6-8.9)
[2016-03-29 03:32] LABS: BUN/Creatinine Ratio 19 (6-26); Blood Urea Nitrogen 10 mg/dL (7-20); Calcium 9.1 mg/dL (8.6-10.8); Carbon Dioxide 24 mEq/L (19-29); Chloride 104 mEq/L (98-109); Glucose 116 mg/dL (70-99); Magnesium 1.9 mg/dL (1.6-2.6); Osmolality,Calculated 280 (280-300); Potassium 4.2 mEq/L (3.5-4.5); Sodium 135 mEq/L (136-145); eGFR For African Americans > 60 (> 60); eGFR For Non-African Americans > 60 (> 60)
[2016-03-29] MEDS: Ipratropium/Albuterol Neb 3 ML IH SCH ×6 (04:43→23:17)
[2016-03-29] MEDS: MethylPREDNISolone 40 MG/ML VIAL IVP SCH ×2 (05:17→17:47)
[2016-03-29] MEDS: *HR* Enoxaparin 40 MG/0.4 ML SYRINGE SQ SCH (05:17)
[2016-03-29] MEDS: *HR* HYDROcodone/Acet 10/325 mg TABLET PO PRN ×4 (05:24→18:06)
[2016-03-29] MEDS: *HR* LORazepam 0.5 MG TABLET PO PRN ×3 (05:30→18:17)
[2016-03-29] MEDS: Tiotropium 18 MCG inhalation IH SCH (07:41)
[2016-03-29] MEDS: Sennosides 8.6 MG TABLET PO SCH ×2 (08:20→20:39)
[2016-03-29] MEDS: Nicotine 14 MG PATCH.TD24 TD SCH (08:20)
[2016-03-29] MEDS: 0.9 % Sodium Chloride 1,000 ML IVC SCH (08:21)
--- NOTE | 2016-03-29 10:30 | Internal Med Progress Note ---
<Aakash Cook - Last Filed: 03/29/16 14:14> Date of Encounter: 03/29/16 Time of Encounter: 10:15 - Assessment and plan (1) Acute exacerbation of chronic obstructive pulmonary disease Current Visit: Yes Status: Acute Assessment and plan: Suggested by worsening dyspnea, productive cough CXR reveiwed, known setting of RUL NSCLC. Would hold off on abx at this time. She is not undergoing active chemo, does not reside in [facility]. Cont systemic steroids, taper as indicated. From 05/11/13 PFTs FVC: 1.75, 60% of predicted. FEV1: 0.79, 36% of predicted. Severe obstructive ventilatory impairment with no significant bronchodilator response. End stage COPD in setting of known lung cancer, portends poor prognosis. Appreciate palliative team following, anticipate further counseling, dc to hospice tomorrow. (2) Lung cancer Current Visit: Yes Status: Acute Assessment and plan: RUL NSCLC followed by Dr. Randhawa. Qualifiers: Laterality: right Lung location: upper lobe of lung Qualified Code(s): C34.11 - Malignant neoplasm of upper lobe, right bronchus or lung (3) Electrolyte abnormality Current Visit: Yes Status: Acute Assessment and plan: Hyponatremia 127 on admission 03/27/16, acute on chronic from 10/201603/28/16 Na 132. Monitor. (4) DVT prophylaxis Current Visit: No Status: Acute Assessment and plan: Cont Lovenox - Subjective Interval history: Patient seen/eval at bedside, reports dyspnea and cough are improved. Denies any further subjective chills, or pleuritic discomfort. Eating/drinking well. - Constitutional Vitals: Temp Pulse Resp BP Pulse Ox 97.5 F L 104 20 121/77 96 03/29/16 07:23 03/29/16 07:23 03/29/16 07:41 03/29/16 07:23 03/29/16 07:41 General appearance: Present: cooperative, A&O X 3 (frail appearing elderly female), pleasant, underweight, answers questions appropriately - Head Head exam: Present: atraumatic, normocephalic - Eye Eye exam: Present: EOMI, sclera anicteric - ENT ENT exam: Present: mucous membranes moist - Neck Neck exam general surgery: Present: supple, trachea midline - Respiratory Respiratory exam: Present: accessory muscle use, prolonged expiratory phase. Absent: wheezes - Cardiovascular Cardiovascular exam: Present: +S1, +S2. Absent: JVD - GI/Abdominal GI/Abdominal exam: Present: soft, no peritoneal signs. Absent: tenderness - Extremities Exam Extremities exam: Present: warm, radial pulses palpable and symetrical. Absent : pedal edema - Neurological Exam Neurological exam: Present: no focal deficits, strengths equal and symetr throughout Internal Medicine: Result - Labs CBC & Chem 7: 03/29/16 03:08 03/29/16 03:08 Labs: Short CBC 03/29/16 Range/Units 03:08 WBC 9.8 D (4.3-11.1) K/mcL Hgb 12.2 (11.5-15.4) g/dL Hct 36.6 (35.3-44.9) % Plt Count 269 (140-400) K/mcL Neutrophils # 8.9 (1.6-8.9) K/mcL BMP 03/29/16 03:08 Sodium 135 L Potassium 4.2 Chloride 104 Carbon Dioxide 24 BUN 10 Creatinine 0.52 L Glucose 116 H Calcium 9.1 - ABG Interpretation ABG results: PT/INR, D-dimer PT 10.2 Seconds (9.4-12.1) 03/27/16 11:31 Consult Discharge Plan - Plan Referrals: Caridad Rosales MD [Primary Care Provider] - <Americo Niteo - Last Filed: 03/29/16 16:13> Date of Encounter: 03/29/16 - Constitutional Vitals: Temp Pulse Resp BP Pulse Ox 97.3 F L 113 20 126/81 94 L 03/29/16 15:09 03/29/16 15:09 03/29/16 15:41 03/29/16 15:09 03/29/16 15:41 Internal Medicine: Result - Labs CBC & Chem 7: 03/29/16 03:08 03/29/16 03:08 Labs: Short CBC 03/29/16 Range/Units 03:08 WBC 9.8 D (4.3-11.1) K/mcL Hgb 12.2 (11.5-15.4) g/dL Hct 36.6 (35.3-44.9) % Plt Count 269 (140-400) K/mcL Neutrophils # 8.9 (1.6-8.9) K/mcL BMP 03/29/16 03:08 Sodium 135 L Potassium 4.2 Chloride 104 Carbon Dioxide 24 BUN 10 Creatinine 0.52 L Glucose 116 H Calcium 9.1 - ABG Interpretation ABG results: PT/INR, D-dimer PT 10.2 Seconds (9.4-12.1) 03/27/16 11:31 - Attending Attestation I examined this patient and my medical decision-making was reviewed with the GALVANIZER ZINC/PA/Advanced Practice Nurse/Resident Physician. I agree with the documented findings, disposition and treatment plan as described except to the extent set forth below. Continue with current management, poor prognosis. Palliative care involved.
--- NOTE | 2016-03-29 11:29 | Palliative Progress Note ---
Date of Encounter: 03/29/16 Time of Encounter: 07:25 - Assessment and plan (1) Lower back pain Current Visit: Yes Status: Chronic Assessment and plan: Patient states her is working well for her continue to watch.. Qualifiers: Chronicity: chronic Back pain laterality: midline Sciatica presence: with sciatica Sciatica laterality: bilateral sciatica Qualified Code(s): M54.41 - Lumbago with sciatica, right side; M54.42 - Lumbago with sciatica, left side; G89.29 - Other chronic pain (2) Acute exacerbation of chronic obstructive pulmonary disease Current Visit: Yes Status: Acute Assessment and plan: Management per hospitalist team (3) Lung cancer Current Visit: Yes Status: Acute Assessment and plan: Possibly in remission however the patient does not know. At this time she does not think she wants to continue any further care for this. She is favoring hospice, and would like to speak to a hospice nurse tomorrow. I will arrange this. Probable Plan will be for hospice on discharge. During her discussion with the hospice nurse tomorrow. Qualifiers: Laterality: right Lung location: upper lobe of lung Qualified Code(s): C34.11 - Malignant neoplasm of upper lobe, right bronchus or lung (4) Therapeutic opioid induced constipation Current Visit: Yes Status: Chronic Assessment and plan: On bowel regimen but will increase the senna. Continue to watch. (5) Counseling regarding advanced care planning and goals of care Current Visit: No Status: Acute Assessment and plan: DNRCCA. She [facility] to go to [facility]. She is considering enrollment in hospice wishes to talk to hospice nurse I will arrange this for tomorrow. - Time Spent With Patient Total time spent is greater than 50% in coordination of care (as documented) at patient's floor/unit and/or counseling patient: - Subjective Interval history: Patient states she is doing well this morning with pain and anxiety medications are working well for her. She did have hospice questions this morning which were answered please see the assessment and plan. She requested no further changes made to her bowel regimen at this time to give her today to see if she has a bowel movement. Appetite is getting better. - Constitutional Vitals: Abnormal lab results MPV 9.2 fL (9.4-12.4) L 03/29/16 03:08 Lymphocytes # 0.5 K/mcL (0.6-4.6) L 03/29/16 03:08 Sodium 135 mEq/L (136-145) L 03/29/16 03:08 Creatinine 0.52 mg/dL (0.57-1.11) L 03/29/16 03:08 Glucose 116 mg/dL (70-99) H 03/29/16 03:08 General appearance: Present: no acute distress - Head Head exam: Present: atraumatic, normal inspection - Eye Eye exam: Present: normal appearance - ENT ENT exam: Present: mucous membranes moist - Neck Neck exam: Present: normal inspection - Respiratory Respiratory exam: Present: decreased breath sounds - Cardiovascular Cardiovascular exam: Present: tachycardia - GI/Abdominal GI/Abdominal exam: Present: normal bowel sounds, soft. Absent: tenderness - Extremities Exam Extremities exam: Present: normal inspection. Absent: pedal edema, tenderness - Neurological Exam Neurological exam: Present: alert - Psychiatric Psychiatric exam: Present: normal affect, normal mood. Absent: agitated, anxious - Skin Skin exam: Present: dry, warm Palliative Quality Palliative Quality: Screen for Code Status: Yes, Screen for Goals of Care: Yes, Screen for Pain: Yes, If Pain Regimen Started, Initiate Bowel Regimen: Yes, Screen for Nausea/Vomitting: Yes Code Status: 03/27/16 12:41 Resuscitation Status: Active [RES] Routine Comment: Resuscitation Status: Full Code Resuscitation Status: Active [RES] Routine Comment: Resuscitation Status: DNR-Comfort Care-Arrest - Labs CBC & Chem 7: 03/29/16 03:08 03/29/16 03:08 Labs: Laboratory Results - last 24 hr 03/29/16 03/29/16 03:08 03:08 WBC 9.8 D RBC 3.85 Hgb 12.2 Hct 36.6 MCV 95.1 MCH 31.7 MCHC 33.3 RDW 13.8 Plt Count 269 MPV 9.2 L Immature Gran % 0.7 Seg Neutrophils % 91.0 Lymphocytes % 5.2 Monocytes % 3.0 Eosinophils % 0.0 Basophils % 0.1 Neutrophils # 8.9 Lymphocytes # 0.5 L Monocytes # 0.3 Eosinophils # 0.0 Basophils # 0.0 Immature Plt Fraction 3.3 Sodium 135 L Potassium 4.2 Chloride 104 Carbon Dioxide 24 BUN 10 Creatinine 0.52 L Est GFR ( Amer) > 60 Est GFR (Non-Af Amer) > 60 BUN/Creatinine Ratio 19 Glucose 116 H Calculated Osmolality 280 Calcium 9.1 Magnesium 1.9 - ABG Interpretation ABG results: PT/INR, D-dimer PT 10.2 Seconds (9.4-12.1) 03/27/16 11:31 Consult Discharge Plan - Plan Referrals: Caridad Rosales MD [Primary Care Provider] -
[2016-03-29] MEDS ORDERED: *HR* LORazepam 2 MG/ML VIAL IVP STA (20:00)
[2016-03-29] MEDS: Pregabalin 50 MG CAPSULE PO SCH (20:39)
[2016-03-30] MEDS: *HR* LORazepam 0.5 MG TABLET PO PRN ×5 (00:35→21:12)
[2016-03-30] MEDS: *HR* HYDROcodone/Acet 10/325 mg TABLET PO PRN ×5 (00:35→21:12)
[2016-03-30] MEDS: Ipratropium/Albuterol Neb 3 ML IH SCH ×6 (03:45→23:49)
[2016-03-30 05:06] LABS: Basophils % 0.1 %; Hematocrit 38.3 % (35.3-44.9); Hemoglobin 12.6 g/dL (11.5-15.4); Immature Granulocytes % 0.6 % (0-4); Lymphocytes # 0.8 K/mcL (0.6-4.6); Lymphocytes % 6.6 %; Mean Corpuscular HGB Conc 32.9 g/dL (31.6-35.5); Mean Corpuscular Hemoglobin 31.7 pg (28.0-33.3); Mean Corpuscular Volume 96.2 fL (83.0-100.0); Mean Platelet Volume 9.8 fL (9.4-12.4); Monocytes # 0.6 K/mcL (0.0-1.3); Neutrophils # 10.8 K/mcL (1.6-8.9); Platelet Count 263 K/mcL (140-400); Red Blood Count 3.98 M/mcL (3.82-4.97); Red Cell Distribution Width 13.9 % (11.5-14.5); Segmented Neutrophils % 87.7 %
[2016-03-30 05:14] LABS: BUN/Creatinine Ratio 21 (6-26); Blood Urea Nitrogen 12 mg/dL (7-20); Calcium 9.1 mg/dL (8.6-10.8); Carbon Dioxide 27 mEq/L (19-29); Chloride 101 mEq/L (98-109); Glucose 94 mg/dL (70-99); Magnesium 1.9 mg/dL (1.6-2.6); Osmolality,Calculated 280 (280-300); Potassium 4.1 mEq/L (3.5-4.5); Sodium 135 mEq/L (136-145); eGFR For African Americans > 60 (> 60); eGFR For Non-African Americans > 60 (> 60)
[2016-03-30] MEDS: *HR* Enoxaparin 40 MG/0.4 ML SYRINGE SQ SCH (05:58)
[2016-03-30] MEDS: MethylPREDNISolone 40 MG/ML VIAL IVP SCH (05:58)
[2016-03-30] MEDS: 0.9 % Sodium Chloride 1,000 ML IVC SCH (05:59)
[2016-03-30] MEDS: Sennosides 8.6 MG TABLET PO SCH ×2 (07:25→21:13)
[2016-03-30] MEDS: Nicotine 14 MG PATCH.TD24 TD SCH (07:25)
--- NOTE | 2016-03-30 09:48 | Discharge Summary ---
<Aakash Cook - Last Filed: 03/30/16 13:44> Date of Encounter: 03/30/16 Time of Encounter: 09:25 - Discharge Diagnosis (1) Acute exacerbation of chronic obstructive pulmonary disease Priority: Primary Status: Acute (2) Lung cancer Priority: Primary Status: Chronic Qualifiers: Laterality: right Lung location: upper lobe of lung Qualified Code(s): C34.11 - Malignant neoplasm of upper lobe, right bronchus or lung (3) Electrolyte abnormality Priority: Secondary Status: Acute (4) DVT prophylaxis Priority: Secondary Status: Acute - Discharge Medications Prescriptions: Docusate [Colace] 100 mg PO BID #60 capsule HYDROcodone/Acet 10/325 mg [[place] 10-325 mg] 1 each PO Q4H PRN #120 tablet PRN Reason: Pain LORazepam [Ativan] 0.25 mg PO Q4H PRN #30 tablet PRN Reason: Anxiety Nicotine Patch [Nicoderm] 14 mg TD DAILY #30 patch.td24 PredniSONE 40 mg PO DAILY #4 tablet Sennosides [Senna] 17.2 mg PO BID #60 tablet Home Medications: Oxygen 4 l NS CONT 10/26/14 [History] Duloxetine [Cymbalta] 30 mg PO DAILY 08/12/15 [History] Albuterol Neb [Proventil Neb] 2.5 mg IH Q6H PRN 03/27/16 [History] Albuterol Sulfate [Albuterol Inhaler] 2 puff IH Q4H PRN 03/27/16 [History] Pregabalin [Lyrica] 50 mg PO DAILY 03/27/16 [History] Tiotropium [Spiriva] 18 mcg IH DAILY 03/27/16 [History] Docusate [Colace] 100 mg PO BID #60 capsule 03/30/16 [Rx] HYDROcodone/Acet 10/325 mg [[place] 10-325 mg] 1 each PO Q4H PRN #120 tablet 03/30 [Rx] LORazepam [Ativan] 0.25 mg PO Q4H PRN #30 tablet 03/30/16 [Rx] Nicotine Patch [Nicoderm] 14 mg TD DAILY #30 patch.td24 03/30/16 [Rx] PredniSONE 40 mg PO DAILY #4 tablet 03/30/16 [Rx] Sennosides [Senna] 17.2 mg PO BID #60 tablet 03/30/16 [Rx] Allergies/Adverse Reactions: Allergies Sulfa (Sulfonamide Antibiotics) Allergy (Verified 02/05/16 18:58) Swelling of Lip/Tongue/Throat Hives Date of admission: 03/27/16 12:29 Primary care physician: Caridad Rosales Consults: 03/27/16 13:33 Consult to Palliative Care [CONS] Routine Comment: stage IIIA lung cancer Consulting Provider: [facility] [place] 03/27/16 13:36 PT [Consult to Physical Therapy] [CONS] Routine Comment: Evaluate, develop and implement POC 03/27/16 13:55 Consult to Customer Service Representative Teacher [CONS] Routine Reason for SW Consult: ECF placement 03/28/16 14:05 Consult to Occupational Therapy [CONS] Routine Comment: Evaluate, develop and implement POC Discharging clinician: Americo Nieto Anticipated date of discharge: 03/30/16 - Patient Status Disposition: Transfer SNF Condition: Fair Functional capacity at discharge: uses cane/walker Overall status at discharge: patient is progressing back to baseline - Discharge Instructions Follow Up With: Caridad Rosales MD [Primary Care Provider] - 04/07/16 9:45 am - Diet and Activity Activity: increase activity as tolerated, wear oxygen at all times Diet: low fat, low cholesterol, low salt diet Hospital course: Ms. Quiroga is a 70 year old female. She finished her chemotherapy and radiation therapy for her lung cancer about 2 years ago. However she has been scared to follow up to get her PET scan, as she is scared that the cancer may have metastasized. At this point, patient has canceled 5 of her PET scan appointments. Patient has history of chronic lower back pain, consistent with neuropathy, and undergoes nerve conduction procedures in [facility]. Patient would present to [place] with chief concern: dyspnea, unrelieved with home nebulizer treatments, prompting further evaluation. Comorbidities would include: arthritis, asthma, cancer (lung - S/P Chemo and radiation therapy, here and at [facility]. In remission), COPD, GERD, hyperlipidemia, hypertension, anxiety, depression Initial impression COPD exacerbation, started systemic steroids, holding off on antibiotics due to no infiltrate(prior lung scarring from tumor treatment). Monitored clinically, no fever or leukocytosis. Improved throughout her stay. From 05/11/13 PFTs FVC: 1.75, 60% of predicted. FEV1: 0.79, 36% of predicted. Severe obstructive ventilatory impairment with no significant bronchodilator response. End stage COPD in setting of known lung cancer, portends poor prognosis. Palliative team consulted for goals of care. Patient was continuing to support extended care facility placement upon discharge. Discussed hospice eligibility , hospice philosophy, hospice options. Ms. Quiroga is hospice eligible based on her COPD alone. Her anxiety, lower back pain, and bowel regimen were supported. She was breathing better as well. She would be agreeable to hospice, but final determination will be arranged at her [facility]. At time of discharge, patient was clinically improved, hemodynamically stable, progressing to baseline, and agreeable with plan of care. Patient was advised to seek immediate medical attention for any new or worsening symptoms including but not limited to fever, chills, chest pain, chest pressure, dyspnea, cough, abdominal pain, nausea, vomiting, diarrhea, bloody stool, urine and the patient voiced understanding. OARRS was reviewed and appropriate, following the [facility] group of [facility] with regimen [place] 10's, QID. Given her end- stage COPD, unremitting back pain and cancer, the narcotic pain regimen is appropriate and allows her to maintain ADLs. Will send supply along with senmessi. Patient will follow-up with primary care physician: Caridad Rosales. Time spent discussing smoking cessation with patient: more than 10 minutes - Time Spent with Patient Total time spent providing and/or coordinating discharge services: Greater than 30 minutes - Constitutional Vitals: Temp Pulse Resp BP Pulse Ox 97.3 F L 90 20 120/82 100 03/30/16 06:43 03/30/16 06:43 03/30/16 06:43 03/30/16 06:43 03/30/16 06:43 General appearance: Present: cooperative, A&O X 3 (frail appearing elderly female), pleasant, underweight, answers questions appropriately - Head Head exam: Present: atraumatic, normocephalic - Eye Eye exam: Present: EOMI, sclera anicteric - ENT ENT exam: Present: mucous membranes moist - Neck Neck exam general surgery: Present: trachea midline - Respiratory Respiratory exam: Present: accessory muscle use, rhonchi (scant). Absent: wheezes - Cardiovascular Cardiovascular exam: Present: +S1, +S2, tachycardia. Absent: JVD - GI/Abdominal GI/Abdominal exam: Present: soft, no peritoneal signs - Extremities Exam Extremities exam: Present: warm, radial pulses palpable and symetrical <Americo Nieto - Last Filed: 03/30/16 17:21> Date of Encounter: 03/30/16 Date of admission: 03/27/16 12:29 Primary care physician: Caridad Rosales Consults: 03/27/16 13:33 Consult to Palliative Care [CONS] Routine Comment: stage IIIA lung cancer Consulting Provider: [facility] [place] 03/27/16 13:36 PT [Consult to Physical Therapy] [CONS] Routine Comment: Evaluate, develop and implement POC 03/27/16 13:55 Consult to Customer Service Representative Teacher [CONS] Routine Reason for SW Consult: ECF placement 03/28/16 14:05 Consult to Occupational Therapy [CONS] Routine Comment: Evaluate, develop and implement POC Hospital course: Ms. Quiroga is a 70 year old female - Time Spent with Patient Total time spent providing and/or coordinating discharge services: - Constitutional Vitals: Temp Pulse Resp BP Pulse Ox 98.1 F 118 19 130/86 97 03/30/16 16:46 03/30/16 16:46 03/30/16 16:46 03/30/16 16:46 03/30/16 16:46 - Attending Attestation I examined this patient and my medical decision-making was reviewed with the QUARTZ ORIENTATOR/PA/Advanced Practice Nurse/Resident Physician. I agree with the documented findings, disposition and treatment plan as described except to the extent set forth below. Lung cancer, COPD exacerbation. Awaiting placement. Will be here at least one more day or possibly until Wednesday. SW has to prior auth her ECF application with insurance.
--- NOTE | 2016-03-30 09:49 | Palliative Progress Note ---
Date of Encounter: 03/30/16 Time of Encounter: 09:47 - Assessment and plan (1) Lower back pain Current Visit: Yes Status: Chronic Assessment and plan: Medications adjusted over the weekend. She now reports pain 3/10 which is an improvement from the 810 she reported on Wednesday. Continue with current dosing of [place]. Qualifiers: Chronicity: chronic Back pain laterality: midline Sciatica presence: with sciatica Sciatica laterality: bilateral sciatica Qualified Code(s): M54.41 - Lumbago with sciatica, right side; M54.42 - Lumbago with sciatica, left side; G89.29 - Other chronic pain (2) Acute exacerbation of chronic obstructive pulmonary disease Current Visit: Yes Status: Acute (3) Severe protein-calorie malnutrition Current Visit: No Status: Chronic Assessment and plan: Patient is trying to eat breakfast this morning, but keeps falling asleep. Medications adjusted. (4) Counseling regarding advanced care planning and goals of care Current Visit: No Status: Acute Assessment and plan: Plan for discharge to ECF. Ms. Quiroga would like to speak with hospice nurse. Her daughter cannot be present today, but is available tomorrow. If Ms. Quiroga is discharged to ECF today, a meeting will be arranged tomorrow with [facility] per patient and daughter request. DNR state form completed. (5) Therapeutic opioid induced constipation Current Visit: Yes Status: Chronic Assessment and plan: Ms. Quiroga reported having a BM during the hospital admission, but nursing documentation does not reflect this. She is currently on Senna BID. Continue to monitor. (6) Lung cancer Current Visit: Yes Status: Chronic Qualifiers: Laterality: right Lung location: upper lobe of lung Qualified Code(s): C34.11 - Malignant neoplasm of upper lobe, right bronchus or lung (7) Anxiety about health Current Visit: Yes Status: Acute Assessment and plan: Ms. Quiroga reports having a "rough night" in which her anxiety medications had to be adjusted. This is the likely cause of her drowsy state this morning. Will decrease the dose and maintain the every four hour PRN schedule. (8) Dyspnea Current Visit: Yes Status: Acute Assessment and plan: Supplemental O2, position for comfort, may use lorazepam if her anxiety and shortness of breath increase. Qualifiers: Dyspnea type: shortness of breath Qualified Code(s): R06.02 - Shortness of breath - Time Spent With Patient Total time spent is greater than 50% in coordination of care (as documented) at patient's floor/unit and/or counseling patient: - Subjective Interval history: Ms. Quiroga is very drowsy this morning. Her lorazepam dose was adjusted last night. During the assessment, she is barely able to keep her eyes open, but in oriented. She rates her pain at 3/10 to low back and bilateral legs. She is trying to eat breakfast, but keeps falling asleep. Last dose of lorazepam was 0730. - Constitutional Vitals: Abnormal lab results WBC 12.3 K/mcL (4.3-11.1) H 03/30/16 03:35 Neutrophils # 10.8 K/mcL (1.6-8.9) H 03/30/16 03:35 Sodium 135 mEq/L (136-145) L 03/30/16 03:35 General appearance: Present: cooperative, no acute distress Exam: 70 year old female appearing older than stated age, cachexia. Awakens to verbal stimuli, but struggles with keeping eyes open. Oriented to person, place, time, and hospital events. - Respiratory Respiratory exam: Present: decreased breath sounds Additional comments: moist non-productive cough. - GI/Abdominal GI/Abdominal exam: Present: normal bowel sounds, soft. Absent: tenderness Additional comments: Patient reports one BM during admission. - Extremities Exam Extremities exam: Present: normal inspection. Absent: pedal edema - Neurological Exam Neurological exam: Present: alert (drowsy), oriented X3, no focal deficits, strengths equal and symetr throughout - Skin Skin exam: Present: dry, warm Palliative Quality Palliative Quality: Screen for Code Status: Yes, Screen for Goals of Care: Yes, Screen for Pain: Yes, If Pain Regimen Started, Initiate Bowel Regimen: Yes, Screen for Nausea/Vomitting: Yes Code Status: 03/27/16 12:41 Resuscitation Status: Active [RES] Routine Comment: Resuscitation Status: Full Code Resuscitation Status: Active [RES] Routine Comment: Resuscitation Status: DNR-Comfort Care-Arrest - Labs CBC & Chem 7: 03/30/16 03:35 03/30/16 03:35 Labs: Laboratory Results - last 24 hr 03/30/16 03/30/16 03:35 03:35 WBC 12.3 H RBC 3.98 Hgb 12.6 Hct 38.3 MCV 96.2 MCH 31.7 MCHC 32.9 RDW 13.9 Plt Count 263 MPV 9.8 Immature Gran % 0.6 Seg Neutrophils % 87.7 Lymphocytes % 6.6 Monocytes % 5.0 Eosinophils % 0.0 Basophils % 0.1 Neutrophils # 10.8 H Lymphocytes # 0.8 Monocytes # 0.6 Eosinophils # 0.0 Basophils # 0.0 Sodium 135 L Potassium 4.1 Chloride 101 Carbon Dioxide 27 BUN 12 Creatinine 0.57 Est GFR ( Amer) > 60 Est GFR (Non-Af Amer) > 60 BUN/Creatinine Ratio 21 Glucose 94 Calculated Osmolality 280 Calcium 9.1 Magnesium 1.9 - ABG Interpretation ABG results: PT/INR, D-dimer PT 10.2 Seconds (9.4-12.1) 03/27/16 11:31 Consult Discharge Plan - Plan Referrals: Caridad Rosales MD [Primary Care Provider] - 04/07/16 9:45 am Prescriptions: Docusate [Colace] 100 mg PO BID #60 capsule HYDROcodone/Acet 10/325 mg [[place] 10-325 mg] 1 each PO Q4H PRN #120 tablet PRN Reason: Pain LORazepam [Ativan] 0.25 mg PO Q4H PRN #30 tablet PRN Reason: Anxiety Nicotine Patch [Nicoderm] 14 mg TD DAILY #30 patch.td24 PredniSONE 40 mg PO DAILY #4 tablet Sennosides [Senna] 17.2 mg PO BID #60 tablet
[2016-03-30] MEDS: Tiotropium 18 MCG inhalation IH SCH (11:16)
--- NOTE | 2016-03-30 12:01 | Electrocardiograph Report ---
[facility] Test Date: 2016-03-27 Pat Name: Virginia Quiroga Department: 104 Room: 3B16 Gender: F Remote Control Assembler: MIGUEL : 1945 Requested By: Paco Reid Order Number: [id number] Reading MD: Vj Smith DO Measurements Intervals [place] Rate: 97 P: 72 PA: 143 QRS: 63 QRSD: 75 T: 66 QT: 334 QTc: 389 Interpretive Statements Sinus rhythm Electronically Signed On 03-30-16 12:00:39 EST by Vj Smith DO
--- NOTE | 2016-03-30 13:52 | Physician Discharge Referral ---
<Aakash Cook - Last Filed: 03/30/16 13:51> ExtendedCare Referral Info Transfer To: [facility] Provider in Charge: Emilia Provider in Charge after Transfer: PCP Institutional Level of Care: Skilled - Diagnosis (1) Acute exacerbation of chronic obstructive pulmonary disease Priority: Primary Status: Acute (2) Lung cancer Priority: Secondary Status: Chronic (3) Electrolyte abnormality Priority: Primary Status: Acute (4) DVT prophylaxis Priority: Secondary Status: Acute Prognosis: Fair Aware of Diagnosis: Patient Aware of Prognosis: Patient - Transfer Medications Prescriptions: Docusate [Colace] 100 mg PO BID #60 capsule HYDROcodone/Acet 10/325 mg [[place] 10-325 mg] 1 each PO Q4H PRN #120 tablet PRN Reason: Pain LORazepam [Ativan] 0.25 mg PO Q4H PRN #30 tablet PRN Reason: Anxiety Nicotine Patch [Nicoderm] 14 mg TD DAILY #30 patch.td24 PredniSONE 40 mg PO DAILY #4 tablet Sennosides [Senna] 17.2 mg PO BID #60 tablet Home Medications: Oxygen 4 l NS CONT 10/26/14 [History] Duloxetine [Cymbalta] 30 mg PO DAILY 08/12/15 [History] Albuterol Neb [Proventil Neb] 2.5 mg IH Q6H PRN 03/27/16 [History] Albuterol Sulfate [Albuterol Inhaler] 2 puff IH Q4H PRN 03/27/16 [History] Pregabalin [Lyrica] 50 mg PO DAILY 03/27/16 [History] Tiotropium [Spiriva] 18 mcg IH DAILY 03/27/16 [History] Docusate [Colace] 100 mg PO BID #60 capsule 03/30/16 [Rx] HYDROcodone/Acet 10/325 mg [[place] 10-325 mg] 1 each PO Q4H PRN #120 tablet 03/30 [Rx] LORazepam [Ativan] 0.25 mg PO Q4H PRN #30 tablet 03/30/16 [Rx] Nicotine Patch [Nicoderm] 14 mg TD DAILY #30 patch.td24 03/30/16 [Rx] PredniSONE 40 mg PO DAILY #4 tablet 03/30/16 [Rx] Sennosides [Senna] 17.2 mg PO BID #60 tablet 03/30/16 [Rx] Allergies/Adverse Reactions: Allergies Sulfa (Sulfonamide Antibiotics) Allergy (Verified 02/05/16 18:58) Swelling of Lip/Tongue/Throat Hives - Respiratory Orders Oxygen / L per min (3) Smoking Cessation: Smoking cessation has been advised. For more information, call the [employer] Quit Line at 2-516-UTDY-NOW. - Ancillary Orders May use pressure relief devices daily prn - Advance Directives Living Will: No Power of Printed Circuit Board Layout Designer: No Code Status: DNR-Arrest - Mobility Orders Chair, Ambulate - Rehabiliation Orders Rehab Potential: Fair Rehab Orders: Sternal Precautions, ROM Exercises, Evaluation for Physical Therapy, Evaluation for Occupational Therapy - Treatments Skin tear care topically daily PRN per policy - Diet Orders No Added Salt (SKYE) CERTIFICATION: I certify that the transfer of the above named patient to an Extended Care Facility is necessary for the continuing treatment of the diagnosis listed. The above information is true and accurate reflection of patient's current condition. Confidential - Redisclosure prohibited without a patient's written consent. <Americo Nieto - Last Filed: 03/30/16 17:22> - Respiratory Orders Smoking Cessation: Smoking cessation has been advised. For more information, call the [employer] Quit Line at 2-566-TLIZ-NOW. CERTIFICATION: I certify that the transfer of the above named patient to an Extended Care Facility is necessary for the continuing treatment of the diagnosis listed. The above information is true and accurate reflection of patient's current condition. Confidential - Redisclosure prohibited without a patient's written consent.
[2016-03-30] MEDS: Pregabalin 50 MG CAPSULE PO SCH (21:13)
[2016-03-31] MEDS: 0.9 % Sodium Chloride 1,000 ML IVC SCH (01:02)
[2016-03-31 01:50] LABS: Bilirubin,Urine Negative (Negative); Blood,Urine Negative (Negative); Clarity,Urine Clear (Clear); Color,Urine Yellow (Yellow); Glucose,Urine (UA) Normal (Normal); Ketones,Urine Negative (Negative); Leukocyte Esterase,Urine Negative (Negative); Nitrite,Urine Negative (Negative); PH,Urine 6.5 pH Units (5.0-8.0); Protein,Urine Negative (Neg-Trace); Specific Gravity,Urine 1.007 (1.010-1.025); Urobilinogen,Urine Normal (Normal)
[2016-03-31] MEDS: *HR* HYDROcodone/Acet 10/325 mg TABLET PO PRN ×3 (03:57→14:03)
[2016-03-31] MEDS: *HR* LORazepam 0.5 MG TABLET PO PRN ×2 (03:58→11:48)
[2016-03-31] MEDS: Ipratropium/Albuterol Neb 3 ML IH SCH ×4 (04:58→15:32)
[2016-03-31 05:00] LABS: Basophils % 0.1 %; Eosinophils % 0.4 %; Hematocrit 37.8 % (35.3-44.9); Hemoglobin 12.2 g/dL (11.5-15.4); Immature Granulocytes % 0.5 % (0-4); Lymphocytes # 1.4 K/mcL (0.6-4.6); Lymphocytes % 15.8 %; Mean Corpuscular HGB Conc 32.3 g/dL (31.6-35.5); Mean Corpuscular Hemoglobin 31.1 pg (28.0-33.3); Mean Corpuscular Volume 96.4 fL (83.0-100.0); Mean Platelet Volume 9.5 fL (9.4-12.4); Monocytes # 0.6 K/mcL (0.0-1.3); Monocytes % 6.5 %; Platelet Count 260 K/mcL (140-400); Red Blood Count 3.92 M/mcL (3.82-4.97); Red Cell Distribution Width 13.8 % (11.5-14.5); Segmented Neutrophils % 76.7 %
[2016-03-31 05:13] LABS: BUN/Creatinine Ratio 24 (6-26); Blood Urea Nitrogen 13 mg/dL (7-20); Calcium 8.8 mg/dL (8.6-10.8); Carbon Dioxide 28 mEq/L (19-29); Chloride 103 mEq/L (98-109); Glucose 74 mg/dL (70-99); Magnesium 1.7 mg/dL (1.6-2.6); Osmolality,Calculated 285 (280-300); Potassium 3.8 mEq/L (3.5-4.5); Sodium 138 mEq/L (136-145); eGFR For African Americans > 60 (> 60); eGFR For Non-African Americans > 60 (> 60)
[2016-03-31] MEDS: *HR* Enoxaparin 40 MG/0.4 ML SYRINGE SQ SCH (05:45)
[2016-03-31] MEDS: Nicotine 14 MG PATCH.TD24 TD SCH (08:25)
[2016-03-31] MEDS: Sennosides 8.6 MG TABLET PO SCH (08:26)
[2016-03-31] MEDS ORDERED: predniSONE 20 MG TABLET PO SCH (09:00)
[2016-03-31] MEDS: Tiotropium 18 MCG inhalation IH SCH (10:08)
--- NOTE | 2016-03-31 10:50 | Palliative Progress Note ---
Date of Encounter: 03/31/16 Time of Encounter: 10:00 - Assessment and plan (1) Lower back pain Current Visit: Yes Status: Chronic Assessment and plan: Medications adjusted over the weekend. She now reports average pain 3/10. Continue with current dosing of [place]. Qualifiers: Chronicity: chronic Back pain laterality: midline Sciatica presence: with sciatica Sciatica laterality: bilateral sciatica Qualified Code(s): M54.41 - Lumbago with sciatica, right side; M54.42 - Lumbago with sciatica, left side; G89.29 - Other chronic pain (2) Acute exacerbation of chronic obstructive pulmonary disease Current Visit: Yes Status: Acute (3) Severe protein-calorie malnutrition Current Visit: No Status: Chronic Assessment and plan: Ate >50% of her morning meal. (4) Counseling regarding advanced care planning and goals of care Current Visit: No Status: Acute Assessment and plan: Plan for discharge to [facility]. Ms. Quiroga would like to speak with hospice nurse. The original plan to transition to [facility] has been changed due to insurance reasons. She is now being evaluated by [facility]. Given thhat she may transition to [facility], we will hold the hospice conversation as [facility] does not cover [facility]. If accepted to [facility], we will contact the patient's next choice. . (5) Therapeutic opioid induced constipation Current Visit: Yes Status: Chronic Assessment and plan: Ms. Quiroga reported having a BM during the hospital admission, but nursing documentation does not reflect this. She is currently on Senna BID. Continue to monitor. (6) Lung cancer Current Visit: Yes Status: Chronic Qualifiers: Laterality: right Lung location: upper lobe of lung Qualified Code(s): C34.11 - Malignant neoplasm of upper lobe, right bronchus or lung (7) Anxiety about health Current Visit: Yes Status: Acute Assessment and plan: Ms. Quiroga is tolerating the adjustments of her medications. She had used 4 doses of lorazepam in the past 24 hours. Discussed non-pharmacological measures. Discharge planning per social group worker. (8) Dyspnea Current Visit: Yes Status: Acute Assessment and plan: Supplemental oxygen, activity as tolerated. May consider using oral morphine concentrate in the event of uncontrolled dyspnea. Qualifiers: Dyspnea type: shortness of breath Qualified Code(s): R06.02 - Shortness of breath - Time Spent With Patient Total time spent is greater than 50% in coordination of care (as documented) at patient's floor/unit and/or counseling patient: - Subjective Interval history: Ms. Quiroga is sitting on the side of the bed searching for her glasses. She reports her lower back pain averages a 3/10 with current treatments. She has taken 5 doses of [place] in the past 24 hours. Her anxiety has been managed by lorazepam 0.25mg every 4 hours with a total of 4 doses in the past 24 hours. We discussed discharge planning and non-pharmacological measures for pain and anxiety management. - Constitutional Vitals: Abnormal lab results Creatinine 0.54 mg/dL (0.57-1.11) L 03/31/16 03:56 Ur Specific [place] 1.007 (1.010-1.025) L 03/31/16 00:18 General appearance: Present: cooperative, disheveled, no acute distress - Eye Additional comments: wears corrective lenses - Respiratory Respiratory exam: Present: decreased breath sounds, rhonchi Additional comments: moist non-productive cough - Cardiovascular Cardiovascular exam: Present: RRR, +S1, +S2 - GI/Abdominal GI/Abdominal exam: Present: normal bowel sounds, soft. Absent: tenderness - Extremities Exam Extremities exam: Present: normal inspection. Absent: pedal edema - Neurological Exam Neurological exam: Present: alert, oriented X3 - Skin Skin exam: Present: intact, warm Palliative Quality Palliative Quality: Screen for Code Status: Yes, Screen for Goals of Care: Yes, Screen for Pain: Yes, If Pain Regimen Started, Initiate Bowel Regimen: Yes, Screen for Nausea/Vomitting: Yes Code Status: 03/27/16 12:41 Resuscitation Status: Active [RES] Routine Comment: Resuscitation Status: Full Code Resuscitation Status: Active [RES] Routine Comment: Resuscitation Status: DNR-Comfort Care-Arrest - Labs CBC & Chem 7: 03/31/16 03:56 03/31/16 03:56 Labs: Laboratory Results - last 24 hr 03/31/16 03/31/16 03/31/16 00:18 03:56 03:56 WBC 9.1 RBC 3.92 Hgb 12.2 Hct 37.8 MCV 96.4 MCH 31.1 MCHC 32.3 RDW 13.8 Plt Count 260 MPV 9.5 Immature Gran % 0.5 Seg Neutrophils % 76.7 Lymphocytes % 15.8 Monocytes % 6.5 Eosinophils % 0.4 Basophils % 0.1 Neutrophils # 7.0 Lymphocytes # 1.4 Monocytes # 0.6 Eosinophils # 0.0 Basophils # 0.0 Sodium 138 Potassium 3.8 Chloride 103 Carbon Dioxide 28 BUN 13 Creatinine 0.54 L Est GFR ( Amer) > 60 Est GFR (Non-Af Amer) > 60 BUN/Creatinine Ratio 24 Glucose 74 Calculated Osmolality 285 Calcium 8.8 Magnesium 1.7 Urine Color Yellow Urine Clarity Clear Urine pH 6.5 Ur Specific [place] 1.007 L Urine Protein Negative Urine Glucose (UA) Normal Urine Ketones Negative Urine Blood Negative Urine Nitrite Negative Urine Bilirubin Negative Urine Urobilinogen Normal Ur Leukocyte Esterase Negative Ur Culture Indicated? NO - ABG Interpretation ABG results: PT/INR, D-dimer PT 10.2 Seconds (9.4-12.1) 03/27/16 11:31 Consult Discharge Plan - Plan Referrals: Caridad Rosales MD [Primary Care Provider] - 04/07/16 9:45 am Prescriptions: Docusate [Colace] 100 mg PO BID #60 capsule HYDROcodone/Acet 10/325 mg [[place] 10-325 mg] 1 each PO Q4H PRN #120 tablet PRN Reason: Pain LORazepam [Ativan] 0.25 mg PO Q4H PRN #30 tablet PRN Reason: Anxiety Nicotine Patch [Nicoderm] 14 mg TD DAILY #30 patch.[id number] PredniSONE 40 mg PO DAILY #4 tablet Sennosides [Senna] 17.2 mg PO BID #60 tablet
--- NOTE | 2016-03-31 13:54 | Internal Med Progress Note ---
Date of Encounter: 03/31/16 Time of Encounter: 13:00 - Assessment and plan (1) Acute exacerbation of chronic obstructive pulmonary disease Current Visit: Yes Status: Acute Assessment and plan: Patient currently denies shortness of breath above her norm. She is on 4 L per nasal cannula continuously at home; same here. Initial plan was to place her at [facility] however this is not an network so we are waiting insurance precertification to place her at [facility]. Patent care on board at this admission, DNR CCA. Patient stating her pain and anxiety are currently controlled. She is alert and oriented 3 on examination and quite verbose in conversation. ITS Impressions Chest X-Ray 03/27/16 11:10 IMPRESSION: Stable chest. Stable volume loss and opacification in the right upper lobe. Moderate emphysematous changes. D/ / 03/27/2016 11:39:34 Juventino Boston MD / [email or web address] Interpreting Provider: Juventino Boston MD (2) Anxiety about health Current Visit: Yes Status: Chronic (3) Tobacco abuse Current Visit: No Status: Chronic Assessment and plan: Declines smoking cessation counseling at this time. Continue nicotine patch. (4) Chronic respiratory failure with hypoxia Current Visit: No Status: Chronic Assessment and plan: Remains on same amount of oxygen she is at home which is 4 L per nasal cannula continuously. Patient denies having to use BiPAP while asleep. (5) DVT prophylaxis Current Visit: No Status: Acute Assessment and plan: Subcutaneous Lovenox while admitted (6) Hyponatremia Current Visit: Yes Status: Resolved Assessment and plan: By mouth intake improving (7) Hypertension Current Visit: Yes Status: Chronic Assessment and plan: Controlled. We will continue to trend and adjust medications as indicated. (8) Severe chronic obstructive pulmonary disease Current Visit: No Status: Chronic (9) Severe protein-calorie malnutrition Current Visit: No Status: Chronic Assessment and plan: Patient's by mouth intake has improved throughout this admission. She also enjoys Ensure drinks, will continue upon disposition. (10) Squamous cell carcinoma lung Current Visit: No Status: Chronic - Subjective Interval history: Patient seen and examined. On examination, patient sitting upright in bed. Patient denies pain or shortness of breath above her norm at this time. She is endorsing a cough that is intermittently producing green sputum. She states she is eating well. She denies concerns this time. - Constitutional Vitals: Temp Pulse Resp BP Pulse Ox 98.9 F 123 18 138/84 97 03/31/16 11:11 03/31/16 11:11 03/31/16 11:25 03/31/16 11:11 03/31/16 11:25 General appearance: Present: cooperative, A&O X 3 (frail appearing elderly female), pleasant, underweight, answers questions appropriately - Head Head exam: Present: atraumatic, normocephalic - Eye Eye exam: Present: PERRL, conjuntiva pink, sclera anicteric Pupils: Present: PERRL - Neck Neck exam general surgery: Present: supple, trachea midline. Absent: lymphadenopathy - Respiratory Respiratory exam: Present: accessory muscle use, decreased breath sounds, prolonged expiratory phase, wheezes. Absent: rales, respiratory distress, rhonchi - Cardiovascular Cardiovascular exam: Present: RRR, +S1, +S2. Absent: diastolic murmur, gallop, rubs, systolic murmur - GI/Abdominal GI/Abdominal exam: Present: normal bowel sounds, soft, no peritoneal signs. Absent: distended, tenderness - Extremities Exam Extremities exam: Present: warm, radial pulses palpable and symetrical. Absent : calf tenderness, cyanotic, pedal edema - Neurological Exam Neurological exam: Present: alert, CN II-XII intact, oriented X3, no focal deficits, strengths equal and symetr throughout. Absent: pronater drift, facial droop, speech deficit - Skin Skin exam: Present: dry, intact, pallor, warm Internal Medicine: Result - Labs CBC & Chem 7: 03/31/16 03:56 03/31/16 03:56 Labs: Short CBC 03/31/16 Range/Units 03:56 WBC 9.1 (4.3-11.1) K/mcL Hgb 12.2 (11.5-15.4) g/dL Hct 37.8 (35.3-44.9) % Plt Count 260 (140-400) K/mcL Neutrophils # 7.0 (1.6-8.9) K/mcL BMP 03/31/16 03:56 Sodium 138 Potassium 3.8 Chloride 103 Carbon Dioxide 28 BUN 13 Creatinine 0.54 L Glucose 74 Calcium 8.8 Urine 03/31/16 Range/Units 00:18 Urine Color Yellow (Yellow) Urine Clarity Clear (Clear) Urine pH 6.5 (5.0-8.0) pH Units Ur Specific [place] 1.007 L (1.010-1.025) Urine Protein Negative (Neg-Trace) mg/dL Urine Glucose (UA) Normal (Normal) mg/dL - ABG Interpretation ABG results: PT/INR, D-dimer PT 10.2 Seconds (9.4-12.1) 03/27/16 11:31 Consult Discharge Plan - Plan Referrals: Caridad Rosales MD [Primary Care Provider] - 04/07/16 9:45 am Prescriptions: Docusate [Colace] 100 mg PO BID #60 capsule HYDROcodone/Acet 10/325 mg [[place] 10-325 mg] 1 each PO Q4H PRN #120 tablet PRN Reason: Pain LORazepam [Ativan] 0.25 mg PO Q4H PRN #30 tablet PRN Reason: Anxiety Nicotine Patch [Nicoderm] 14 mg TD DAILY #30 patch.td24 PredniSONE 40 mg PO DAILY #4 tablet Sennosides [Senna] 17.2 mg PO BID #60 tablet
--- NOTE | 2016-03-31 15:30 | Physician Discharge Referral ---
Home Health/Hosp Referral Info Transfer to: Home Health Attending Provider: Jovanny Mon CNP Provider in Charge Post Discharge: PCP - Diagnosis (1) Acute exacerbation of chronic obstructive pulmonary disease Priority: Primary Status: Acute (2) Anxiety about health Priority: Secondary Status: Chronic (3) Tobacco abuse Priority: Secondary Status: Chronic (4) Chronic respiratory failure with hypoxia Priority: Secondary Status: Chronic (5) DVT prophylaxis Priority: Primary Status: Acute (6) Hyponatremia Priority: Primary Status: Resolved (7) Hypertension Priority: Secondary Status: Chronic (8) Severe chronic obstructive pulmonary disease Priority: Secondary Status: Chronic (9) Severe protein-calorie malnutrition Priority: Secondary Status: Chronic (10) Squamous cell carcinoma lung Priority: Secondary Status: Chronic - Respiratory Orders Oxygen / L per min (4) Smoking Cessation: Smoking cessation has been advised. For more information, call the [place] Tobacco Quit Line at 3-386-BSUS-NOW. - Diet/Nutrition Diet/Nutrition Orders: Regular - Activity Activity Orders: Up ad gayle (per PT) - Services Needed Following services are medically necessary services: Nursing, Home Health Aide, Physical Therapy, Occupational Therapy - Transfer Medications Prescriptions: Docusate [Colace] 100 mg PO BID #60 capsule HYDROcodone/Acet 10/325 mg [[place] 10-325 mg] 1 each PO Q4H PRN #120 tablet PRN Reason: Pain LORazepam [Ativan] 0.25 mg PO Q4H PRN #30 tablet PRN Reason: Anxiety Nicotine Patch [Nicoderm] 14 mg TD DAILY #30 patch.td24 PredniSONE 40 mg PO DAILY #4 tablet Sennosides [Senna] 17.2 mg PO BID #60 tablet Home Medications: Oxygen 4 l NS CONT 10/26/14 [History] Duloxetine [Cymbalta] 30 mg PO DAILY 08/12/15 [History] Albuterol Neb [Proventil Neb] 2.5 mg IH Q6H PRN 03/27/16 [History] Albuterol Sulfate [Albuterol Inhaler] 2 puff IH Q4H PRN 03/27/16 [History] Pregabalin [Lyrica] 50 mg PO DAILY 03/27/16 [History] Tiotropium [Spiriva] 18 mcg IH DAILY 03/27/16 [History] Docusate [Colace] 100 mg PO BID #60 capsule 03/30/16 [Rx] HYDROcodone/Acet 10/325 mg [[place] 10-325 mg] 1 each PO Q4H PRN #120 tablet 03/30 [Rx] LORazepam [Ativan] 0.25 mg PO Q4H PRN #30 tablet 03/30/16 [Rx] Nicotine Patch [Nicoderm] 14 mg TD DAILY #30 patch.td24 03/30/16 [Rx] PredniSONE 40 mg PO DAILY #4 tablet 03/30/16 [Rx] Sennosides [Senna] 17.2 mg PO BID #60 tablet 03/30/16 [Rx] Allergies/Adverse Reactions: Allergies Sulfa (Sulfonamide Antibiotics) Allergy (Verified 02/05/16 18:58) Swelling of Lip/Tongue/Throat Hives Certification: Further, I certify that my clinical findings support that this patient is homebound (i.e. absences from home require considerable and taxing effort and are for medical reasons or mandaeism services or infrequently or short duration when for other reasons) because: Homebound Reason: Patient requires assistance of a person or device to safely leave home, Leaving home requires considerable and taxing effort due to condition, Severity of cardiac or pulmonary status limits activity tolerance Attestation: My signature below is to certify that this patient is under my care and that I, or nurse practitioner, or a physician's certified first assistant working with me, has a face-to -face encounter with this patient.
[2016-03-31 16:08] VITALS: BP 115/76
== END 2016-03-31 19:20 | disposition home health service (06) ==
LOC: EMEROO 11:05 → 3BNU 11:05 → SUATTDRO 12:29 → 3BNU 13:00
PROVIDERS: ADMIT Nurse Practitioner Family; ATTEND Nurse Practitioner Family

== ENCOUNTER 2016-05-03 08:06 | Inpatient (IN) ==
--- NOTE | 2016-05-03 08:12 | Emergency Department Note ---
Disposition Clinical Impression: Intractable pain, Claudication, Peripheral vascular disease, End stage COPD Disposition: Admitted As Inpatient Condition: Good General Adult HPI - General Chief complaint: ED Abdominal Pain Stated complaint: abdominal pain Time Seen by Provider: 05/03/16 08:08 - Related Data Home Medications Medication Instructions Recorded Confirmed Oxygen 4 l NS CONT 10/26/14 05/03/16 Duloxetine [Cymbalta] 30 mg PO DAILY 08/12/15 05/03/16 Albuterol Neb [Proventil Neb] 2.5 mg IH Q6H PRN 03/27/16 05/03/16 Albuterol Sulfate [Albuterol 2 puff IH Q4H PRN 03/27/16 05/03/16 Inhaler] Pregabalin [Lyrica] 50 mg PO DAILY 03/27/16 05/03/16 Tiotropium [Spiriva] 18 mcg IH DAILY 03/27/16 05/03/16 Previous Rx's Medication Instructions Recorded Docusate [Colace] 100 mg PO BID #60 capsule 03/30/16 LORazepam [Ativan] 0.25 mg PO Q4H PRN #30 tablet 03/30/16 PredniSONE 40 mg PO DAILY #4 tablet 03/30/16 Sennosides [Senna] 17.2 mg PO BID #60 tablet 03/30/16 Clopidogrel [Plavix] 75 mg PO DAILY #30 tablet 05/02/16 OxyCODONE/APAP 10/325 [Percocet 1 each PO Q6HR PRN #12 tablet 05/02/16 10/325 MG] Allergies Allergy/AdvReac Type Severity Reaction Status Date / Time fluoxetine Allergy Swelling Verified 05/03/16 12:09 of Lip/Tongue/Throat Sulfa (Sulfonamide Allergy Swelling Verified 05/03/16 08:17 Antibiotics) of Lip/Tongue/Throat Past Medical History - Past Medical History Medical history: Reports: arthritis, asthma, cancer, COPD, GERD, hyperlipidemia , hypertension, other Surgical history: Reports: hip replacement, other Psychiatric history: Reports: anxiety, depression [employer] history: Reports: no [employer]ER history - Social History Smoking Status: Current every day smoker Smokeless Tobacco Status: No Alcohol use: Reports: none Drug use: Reports: none Course Vital Signs Temperature 98.5 F 05/03/16 08:07 Pulse Rate 101 05/03/16 08:07 Respiratory Rate 16 05/03/16 08:07 Blood Pressure 142/88 05/03/16 08:07 O2 Sat by Pulse Oximetry 100 05/03/16 08:07 Temperature 97.4 F L 05/03/16 15:31 Pulse Rate 98 05/03/16 15:31 Respiratory Rate 18 05/03/16 15:31 Blood Pressure 135/90 05/03/16 15:31 O2 Sat by Pulse Oximetry 97 05/03/16 15:31 Oxygen Delivery Oxygen Delivery Nasal Cannula Medical Decision Making - Lab Data Result diagrams: 05/03/16 08:27 05/03/16 08:27 Lab Results 05/03/16 05/03/16 05/03/16 Range/Units 08:27 08:27 08:27 WBC 14.1 H (4.3-11.1) K/mcL RBC 4.32 (3.82-4.97) M/mcL Hgb 13.7 (11.5-15.4) g/dL Hct 41.6 (35.3-44.9) % MCV 96.3 (83.0-100.0) fL MCH 31.7 (28.0-33.3) pg MCHC 32.9 (31.6-35.5) g/dL RDW 13.5 (11.5-14.5) % Plt Count 352 (140-400) K/mcL MPV 8.4 L (9.4-12.4) fL Immature Gran % 0.8 (0-4) % Seg Neutrophils % 83.2 % Lymphocytes % 9.0 % Monocytes % 6.3 % Eosinophils % 0.6 % Basophils % 0.1 % Neutrophils # 11.7 H (1.6-8.9) K/mcL Lymphocytes # 1.3 (0.6-4.6) K/mcL Monocytes # 0.9 (0.0-1.3) K/mcL Eosinophils # 0.1 (0.0-0.6) K/mcL Basophils # 0.0 (0.0-0.2) K/mcL PT (9.4-12.1) Seconds INR APTT (26.0-36.0) Seconds Sodium 129 L (136-145) mEq/L Potassium 3.7 (3.5-4.5) mEq/L Chloride 89 L (98-109) mEq/L Carbon Dioxide 32 H (19-29) mEq/L BUN 13 (7-20) mg/dL Creatinine 0.64 (0.57-1.11) mg/dL Est GFR ( Amer) > 60 (> 60) Est GFR (Non-Af Amer) > 60 (> 60) BUN/Creatinine Ratio 20 (6-26) Glucose 102 H (70-99) mg/dL Calculated Osmolality 268 L (280-300) Calcium 9.4 (8.6-10.8) mg/dL Troponin I 0.03 (0-0.03) ng/mL 05/03/16 Range/Units 08:27 WBC (4.3-11.1) K/mcL RBC (3.82-4.97) M/mcL Hgb (11.5-15.4) g/dL Hct (35.3-44.9) % MCV (83.0-100.0) fL MCH (28.0-33.3) pg MCHC (31.6-35.5) g/dL RDW (11.5-14.5) % Plt Count (140-400) K/mcL MPV (9.4-12.4) fL Immature Gran % (0-4) % Seg Neutrophils % % Lymphocytes % % Monocytes % % Eosinophils % % Basophils % % Neutrophils # (1.6-8.9) K/mcL Lymphocytes # (0.6-4.6) K/mcL Monocytes # (0.0-1.3) K/mcL Eosinophils # (0.0-0.6) K/mcL Basophils # (0.0-0.2) K/mcL PT 10.1 (9.4-12.1) Seconds INR 0.9 APTT 26.9 (26.0-36.0) Seconds Sodium (136-145) mEq/L Potassium (3.5-4.5) mEq/L Chloride (98-109) mEq/L Carbon Dioxide (19-29) mEq/L BUN (7-20) mg/dL Creatinine (0.57-1.11) mg/dL Est GFR ( Amer) (> 60) Est GFR (Non-Af Amer) (> 60) BUN/Creatinine Ratio (6-26) Glucose (70-99) mg/dL Calculated Osmolality (280-300) Calcium (8.6-10.8) mg/dL Troponin I (0-0.03) ng/mL Attestation Statement - Attestation Attestation: I examined this patient and my medical decision-making was reviewed with the HYPERBARIC NURSE/PA/Advanced Practice Nurse/Resident Physician. I agree with the documented findings, disposition and treatment plan as described except to the extent set forth below. [id number] time in conjunction with the resident physician Dr. Stephenson Patient presents with bilateral lower extremity pain with the existing history of peripheral arterial disease. She was recently seen for similar problems and referred to vascular surgery for outpatient follow-up. The patient appears older than stated age on exam. Evidence of preserved perfusion to her lower extremities which are pink and warm with delayed capillary refill
[2016-05-03] MEDS ORDERED: *HR* Morphine 2 MG/ML SYRINGE IVP ONE (08:18)
--- NOTE | 2016-05-03 08:19 | Emergency Department Note ---
Disposition Clinical Impression: Intractable pain, Claudication, Peripheral vascular disease, End stage COPD Disposition: Admitted As Inpatient Condition: Good Referrals: Caridad Rosales MD [Primary Care Provider] - Forms: ED Satisfaction Letter, Work/School Release Time of Disposition: 10:06 Extremity Problem HPI - General Chief complaint: ED Abdominal Pain Stated complaint: abdominal pain Time Seen by Provider: 05/03/16 08:08 Source: EMS Limitations: no limitations Nursing Notes Reviewed: Yes Vital Signs Reviewed: Yes - History of Present Illness HPI Narrative: Patient is a 70-year-old female with end-stage COPD, currently being considered for hospice. She presents today due to 3 separate complaints. The main complaint is pain of the bilateral lower extremity. She was seen here yesterday in the ED, had ABIs done of the lower extremity that showed an REGLA of the right at 0.21, REGLA of the left 0.41. Vascular was consulted, and she was deemed not a great candidate for surgery due to medical history. She was sent home with Plavix and Percocet 5 mg. She presents today because she states that her pain is not controlled with the medication that she was sent home with. She was told to return to the ED if she had any new or worsening symptoms. She also has a complaint of shortness of breath. She has chronic end-stage COPD and states that this is worsened before. She wears oxygen at home 2-3 L chronically, is on daily albuterol treatments and steroids. She also has a complaint of suprapubic abdominal pain. She denies any burning with urination, blood in urine, change in bowel her bladder habits, blood in stool. Denies any chest pain, nausea, vomiting, fevers. Pain Scale: 8 - Related Data Home Medications Medication Instructions Recorded Confirmed Oxygen 4 l NS CONT 10/26/14 05/03/16 Duloxetine [Cymbalta] 30 mg PO DAILY 08/12/15 05/03/16 Albuterol Neb [Proventil Neb] 2.5 mg IH Q6H PRN 03/27/16 05/03/16 Albuterol Sulfate [Albuterol 2 puff IH Q4H PRN 03/27/16 05/03/16 Inhaler] Pregabalin [Lyrica] 50 mg PO DAILY 03/27/16 05/03/16 Tiotropium [Spiriva] 18 mcg IH DAILY 03/27/16 05/03/16 Previous Rx's Medication Instructions Recorded Docusate [Colace] 100 mg PO BID #60 capsule 03/30/16 HYDROcodone/Acet 10/325 mg [[place] 1 each PO Q4H PRN #120 tablet 03/30/16 10-325 mg] LORazepam [Ativan] 0.25 mg PO Q4H PRN #30 tablet 03/30/16 Nicotine Patch [Nicoderm] 14 mg TD DAILY #30 patch.td24 03/30/16 PredniSONE 40 mg PO DAILY #4 tablet 03/30/16 Sennosides [Senna] 17.2 mg PO BID #60 tablet 03/30/16 Azithromycin [Zithromax] 250 mg PO Q24H #6 tablet 04/05/16 Clopidogrel [Plavix] 75 mg PO DAILY #30 tablet 05/02/16 OxyCODONE/APAP 10/325 [Percocet 1 each PO Q6HR PRN #12 tablet 05/02/16 10/325 MG] Allergies Allergy/AdvReac Type Severity Reaction Status Date / Time Sulfa (Sulfonamide Allergy Swelling Verified 05/03/16 08:17 Antibiotics) of Lip/Tongue/Throat Constitutional: Denies: fever ENT ED: Denies: ear pain, throat pain Cardiovascular: Denies: chest pain, palpitations, dyspnea on exertion Respiratory: Reports: cough, dyspnea, wheezes Gastrointestinal: Reports: abdominal pain. Denies: nausea, vomiting, diarrhea, constipation Genitourinary: Denies: urgency, dysuria, frequency, hematuria, discharge Integumentary: Denies: rash Neurological: Denies: weakness, numbness, paresthesias Past Medical History - Past Medical History Attestation: Yes The following information was validated with the patient. Medical history: Reports: arthritis, asthma, cancer, COPD, GERD, hyperlipidemia , hypertension, other Surgical history: Reports: hip replacement, other Psychiatric history: Reports: anxiety, depression [employer] history: Reports: no [employer] history - Social History Smoking Status: Current every day smoker Smokeless Tobacco Status: No Alcohol use: Reports: none Drug use: Reports: none Physical Exam - General Limitations: no limitations General appearance: alert, in no apparent distress, cachectic - Head Head exam: atraumatic, normocephalic, normal inspection - Eye Eye exam: Present: normal appearance, PERRL, EOMI - ENT ENT exam: normal exam, normal oropharynx, mucous membranes moist - Neck Neck exam: Present: normal inspection, full ROM, trachea midline - Chest Chest inspection: Present: normal inspection, symmetric chest wall rise - Respiratory Respiratory exam: Present: wheezes (Significant wheeze in all lung aquino) - Cardiovascular Cardiovascular exam: Present: normal rhythm, tachycardia, normal heart sounds - Abdominal Exam Abdominal exam: Present: soft, tenderness (Mild suprapubic tenderness). Absent : distention, guarding, rebound, rigidity - Extremities Exam Extremities exam: Present: other (Patient has pain of the entire right and left lower extremity with very light palpation. Pedal and posterior tibial pulses are diminished at +1 over 4, delayed cap refill in all toes of bilateral feet. Paleness of right pinky toe. Extremities warm.) - Neurological Exam Neurological exam: Present: alert, oriented X3 - Psychiatric Psychiatric exam: Present: normal affect, normal mood - Skin Skin exam: Present: warm, dry, intact, normal color Course Course Narrative: Patient tachycardic. However, the rest of the vitals were within normal limits. She had significant wheezes in all lung aquino but was in no acute distress. Currently on oxygen. Physical examination the lower shoulder shows: pain of the entire right and left lower extremity with very light palpation. Pedal and posterior tibial pulses are diminished at +1 over 4, delayed cap refill in all toes of bilateral feet. Paleness of right pinky toe. Extremities warm. REGLA report from yesterday's visit: REGLA PRELIM RESULTS- RIGHT LOWER EXTREMITY APPEARS CRITICALLY ISCHEMIC AT RT REGLA 0.21. NO PULSE FOUND IN RIGHT POSTERIOR TIBIAL ARTERY, VERY FAINT PULSE IN RIGHT DORSALIS PEDIS ARTERY. LEFT LOWER EXTREMITY APPEARS SEVERELY ISCHEMIC AT LEFT REGLA AT 0.41. NO PULSE FOUND IN LEFT DORSALIS PEDIS ARTERY.PULSE FOUND IN LEFT POSTERIOR TIBIAL ARTERY. VALENTE MACHUCA RDCS. We will give patient IV morphine for pain control. She had a consult this morning that did not help with her pain. We will likely need to admit for intractable pain of the lower extremities with a vascular consult. We will also obtain cardiac labs due to shortness of breath, however, this is likely due to end-stage COPD. We will also give her a duoneb breathing treatment and Solu-Medrol to help with her symptoms. 08:51 patient has a leukocytosis of 14. Hyponatremia, hypochloremia. 09:00 EKG NSR with no acute ST changes. Negative trop. CXR negative for acute cardiopulm process. The patient has a leukocytosis of 14, hyponatremia, hypochloremia. Maintenance rate of normal saline started. Vascular has been paged. Dr. Sorensen stated patient options were amputation or angigram revascularization just listening to case, but he has agreed to be consult once patient is admitted. Hospitalist paged. Dr. Gonzalez accepts, patient was given another 0.5mg dilaudid for pain controll. Vital Signs Temperature 98.5 F 05/03/16 08:07 Pulse Rate 101 05/03/16 08:07 Respiratory Rate 16 05/03/16 08:07 Blood Pressure 142/88 05/03/16 08:07 O2 Sat by Pulse Oximetry 100 05/03/16 08:07 Temperature 98.5 F 05/03/16 08:18 Pulse Rate 109 05/03/16 09:28 Respiratory Rate 20 05/03/16 09:28 Blood Pressure 107/78 05/03/16 09:28 O2 Sat by Pulse Oximetry 88 L 05/03/16 09:28 Oxygen Delivery Oxygen Delivery Room Air Extremity Problem, Nontraumati - MDM Narrative Medical decision making narrative: EKG NSR with no acute ST changes. Negative trop. CXR negative for acute cardiopulm process. The patient has a leukocytosis of 14, hyponatremia, hypochloremia. Maintenance rate of normal saline started. Vascular has been paged. Dr. Sorensen stated patient options were amputation or angigram revascularization just listening to case, but he has agreed to be consult once patient is admitted. Hospitalist paged. - Medical Records Medical records reviewed: Yes I reviewed the patient's medical records. - Lab Data Lab results reviewed: Yes I reviewed the patient's lab results. Result diagrams: 05/03/16 08:27 05/03/16 08:27 Lab Results 05/03/16 05/03/16 05/03/16 Range/Units 08:27 08:27 08:27 WBC 14.1 H (4.3-11.1) K/mcL RBC 4.32 (3.82-4.97) M/mcL Hgb 13.7 (11.5-15.4) g/dL Hct 41.6 (35.3-44.9) % MCV 96.3 (83.0-100.0) fL MCH 31.7 (28.0-33.3) pg MCHC 32.9 (31.6-35.5) g/dL RDW 13.5 (11.5-14.5) % Plt Count 352 (140-400) K/mcL MPV 8.4 L (9.4-12.4) fL Immature Gran % 0.8 (0-4) % Seg Neutrophils % 83.2 % Lymphocytes % 9.0 % Monocytes % 6.3 % Eosinophils % 0.6 % Basophils % 0.1 % Neutrophils # 11.7 H (1.6-8.9) K/mcL Lymphocytes # 1.3 (0.6-4.6) K/mcL Monocytes # 0.9 (0.0-1.3) K/mcL Eosinophils # 0.1 (0.0-0.6) K/mcL Basophils # 0.0 (0.0-0.2) K/mcL PT (9.4-12.1) Seconds INR APTT (26.0-36.0) Seconds Sodium 129 L (136-145) mEq/L Potassium 3.7 (3.5-4.5) mEq/L Chloride 89 L (98-109) mEq/L Carbon Dioxide 32 H (19-29) mEq/L BUN 13 (7-20) mg/dL Creatinine 0.64 (0.57-1.11) mg/dL Est GFR ( Amer) > 60 (> 60) Est GFR (Non-Af Amer) > 60 (> 60) BUN/Creatinine Ratio 20 (6-26) Glucose 102 H (70-99) mg/dL Calculated Osmolality 268 L (280-300) Calcium 9.4 (8.6-10.8) mg/dL Troponin I 0.03 (0-0.03) ng/mL 05/03/16 Range/Units 08:27 WBC (4.3-11.1) K/mcL RBC (3.82-4.97) M/mcL Hgb (11.5-15.4) g/dL Hct (35.3-44.9) % MCV (83.0-100.0) fL MCH (28.0-33.3) pg MCHC (31.6-35.5) g/dL RDW (11.5-14.5) % Plt Count (140-400) K/mcL MPV (9.4-12.4) fL Immature Gran % (0-4) % Seg Neutrophils % % Lymphocytes % % Monocytes % % Eosinophils % % Basophils % % Neutrophils # (1.6-8.9) K/mcL Lymphocytes # (0.6-4.6) K/mcL Monocytes # (0.0-1.3) K/mcL Eosinophils # (0.0-0.6) K/mcL Basophils # (0.0-0.2) K/mcL PT 10.1 (9.4-12.1) Seconds INR 0.9 APTT 26.9 (26.0-36.0) Seconds Sodium (136-145) mEq/L Potassium (3.5-4.5) mEq/L Chloride (98-109) mEq/L Carbon Dioxide (19-29) mEq/L BUN (7-20) mg/dL Creatinine (0.57-1.11) mg/dL Est GFR ( Amer) (> 60) Est GFR (Non-Af Amer) (> 60) BUN/Creatinine Ratio (6-26) Glucose (70-99) mg/dL Calculated Osmolality (280-300) Calcium (8.6-10.8) mg/dL Troponin I (0-0.03) ng/mL - Radiology Data Radiology results reviewed: Yes I reviewed the patient's radiology results. - EKG Data EKG attestation: Yes I reviewed and interpreted this EKG. EKG results narrative: 05/03/2016 and 08:46. Sinus rhythm. Rate 97. QTC 382. QRS 77. Normal axis. No acute ST elevation or depression. Q waves in leads 2, 3, aVF, present on old EKG. There are also Q waves in V4, V5, V6 that are present on old EKG. S.B.A.R. - S.B.A.R. Situation: Demographics, MOA Background: Presenting Complaint, Relevant PMH, Meds, & Allergies Assessment: Vital Signs, Course and respsone to treatment, Exam Concerns, Patient/Family Expectation, Pertinant Lab Results, Outstanding Labs Recommendation: Barrier(s) to disposition, Recommendation based on pending studies, treatments, or consults SRaulAAylin Report Given to: Dr. Carlos Cotter Repor Time: 10:05
[2016-05-03] MEDS ORDERED: Ipratropium/Albuterol Neb 3 ML IH ONE ×2 (08:29)
[2016-05-03 08:33] LABS: Basophils % 0.1 %; Eosinophils # 0.1 K/mcL (0.0-0.6); Eosinophils % 0.6 %; Hematocrit 41.6 % (35.3-44.9); Hemoglobin 13.7 g/dL (11.5-15.4); Immature Granulocytes % 0.8 % (0-4); Lymphocytes # 1.3 K/mcL (0.6-4.6); Mean Corpuscular HGB Conc 32.9 g/dL (31.6-35.5); Mean Corpuscular Hemoglobin 31.7 pg (28.0-33.3); Mean Corpuscular Volume 96.3 fL (83.0-100.0); Mean Platelet Volume 8.4 fL (9.4-12.4); Monocytes # 0.9 K/mcL (0.0-1.3); Monocytes % 6.3 %; Neutrophils # 11.7 K/mcL (1.6-8.9); Platelet Count 352 K/mcL (140-400); Red Blood Count 4.32 M/mcL (3.82-4.97); Red Cell Distribution Width 13.5 % (11.5-14.5); Segmented Neutrophils % 83.2 %
[2016-05-03 08:38] LABS: INR 0.9; Prothrombin Time 10.1 Seconds (9.4-12.1)
[2016-05-03 08:41] LABS: Activated Partial Thrombo Time 26.9 Seconds (26.0-36.0)
[2016-05-03 08:47] LABS: BUN/Creatinine Ratio 20 (6-26); Blood Urea Nitrogen 13 mg/dL (7-20); Calcium 9.4 mg/dL (8.6-10.8); Carbon Dioxide 32 mEq/L (19-29); Chloride 89 mEq/L (98-109); Glucose 102 mg/dL (70-99); Osmolality,Calculated 268 (280-300); Potassium 3.7 mEq/L (3.5-4.5); Sodium 129 mEq/L (136-145); eGFR For African Americans > 60 (> 60); eGFR For Non-African Americans > 60 (> 60)
[2016-05-03] MEDS: 0.9 % Sodium Chloride 1,000 ML IVC SCH (09:25)
[2016-05-03] MEDS ORDERED: *HR* HYDROmorphone (PF) 1 MG/ML SYRINGE IVP ONE ×2 (09:30→10:17)
--- NOTE | 2016-05-03 10:40 | Internal Med History&Physical ---
Date of Encounter: 05/03/16 Time of Encounter: 10:24 Assessment and Plan (1) End stage COPD Current visit: Yes Status: Acute No evidence of exacerbation. On review of prior records her FEV1 was 38% of predicted. We will continue with bronchodilators, inhaled steroids and oxygen by nasal cannula. She is enrolled in hospice. We will reconsult palliative care to readdress goals of care. (2) Cigarette smoker Current visit: No Status: Acute I have advised smoking cessation. We will provide nicotine replacement therapy. (3) DVT prophylaxis Current visit: No Status: Acute Subcutaneous heparin. (4) Chronic respiratory failure with hypoxia Current visit: No Status: Chronic Oxygen by nasal cannula to maintain saturation above 92% (5) Severe protein-calorie malnutrition Current visit: No Status: Chronic We will order a dietary supplements. Nutrition consult. (6) Severe peripheral arterial disease Current visit: Yes Status: Acute Consult vascular surgery. She would be very high risk for vascular procedure and open surgery due to end-stage COPD, malnutrition and poor functional status. Continue with Plavix which was started 2 days ago. Internal Medicine - H&P: HPI Chief complaint: Bilateral leg pain Plans for Post Hospital Care: Home History of present illness: Ms. Quiroga is a 70 year old female with past medical history significant for advanced stage COPD, chronic tobacco abuse and peripheral vascular disease who presented to the hospital for leg pain. She reports bilateral leg pain worse over the last 1 week described as sharp and burning, worse with ambulation and improved with oral pain medication however she does not get complete relief with her regular Vicodin and Percocet. Reports some associated numbness in both feet. She presented to the emergency department yesterday and she had REGLA checked which showed right leg of 0.21 and left leg of 0.41. She was then discharged home however her lower extremity pain was unbearable so she presented to the hospital. Review of systems positive for nausea no vomiting diarrhea, positive for chronic shortness of breath no chest pain, positive for bilateral lower extremity pain and numbness, chronic back pain, anxiety. The remainder of a 10 system review of systems was negative Family history reviewed and found to be noncontributory. Past Med Surg Social Fam HX - Past Medical History Medical history: arthritis, asthma, cancer, COPD, GERD, hyperlipidemia, hypertension, other Psychiatric history: anxiety, depression - Past Surgical History Surgical History: hip replacement, other - Social History Smoking Status: Current every day smoker Smokeless Tobacco Status: No Alcohol use: none Drug use: none - Family History Mother Living Status: Hx Family Cancer: Yes (Brain) Father Living Status: Hx Family Cancer: Yes (Lung) Internal Medicine - H&P: Meds Oxygen 4 l NS CONT 10/26/14 [History] Duloxetine [Cymbalta] 30 mg PO DAILY 08/12/15 [History] Albuterol Neb [Proventil Neb] 2.5 mg IH Q6H PRN 03/27/16 [History] Albuterol Sulfate [Albuterol Inhaler] 2 puff IH Q4H PRN 03/27/16 [History] Pregabalin [Lyrica] 50 mg PO DAILY 03/27/16 [History] Tiotropium [Spiriva] 18 mcg IH DAILY 03/27/16 [History] Docusate [Colace] 100 mg PO BID #60 capsule 03/30/16 [Rx] HYDROcodone/Acet 10/325 mg [[place] 10-325 mg] 1 each PO Q4H PRN #120 tablet 03/30 [Rx] LORazepam [Ativan] 0.25 mg PO Q4H PRN #30 tablet 03/30/16 [Rx] Nicotine Patch [Nicoderm] 14 mg TD DAILY #30 patch.td24 03/30/16 [Rx] PredniSONE 40 mg PO DAILY #4 tablet 03/30/16 [Rx] Sennosides [Senna] 17.2 mg PO BID #60 tablet 03/30/16 [Rx] Azithromycin [Zithromax] 250 mg PO Q24H #6 tablet 04/05/16 [Rx] Clopidogrel [Plavix] 75 mg PO DAILY #30 tablet 05/02/16 [Rx] OxyCODONE/APAP 10/325 [Percocet 10/325 MG] 1 each PO Q6HR PRN #12 tablet [Rx] Allergies Sulfa (Sulfonamide Antibiotics) Allergy (Verified 05/03/16 08:17) Swelling of Lip/Tongue/Throat Hives All Systems PM: A 10-system review of systems was performed and is negative for pertinent findings except as documented above in the HPI. - Constitutional Vitals: Temp Pulse Resp BP Pulse Ox 98.5 F 109 20 107/78 88 L 05/03/16 08:18 05/03/16 09:28 05/03/16 09:28 05/03/16 09:28 05/03/16 09:28 General appearance: Present: A&O X 3 - Eye Eye exam: Present: PERRL, conjuntiva pink, sclera anicteric Pupils: Present: PERRL - Respiratory Respiratory exam: Present: decreased breath sounds. Absent: accessory muscle use, rales, rhonchi, wheezes - Cardiovascular Cardiovascular exam: Present: RRR, +S1, +S2. Absent: diastolic murmur, gallop, rubs, systolic murmur - GI/Abdominal GI/Abdominal exam: Present: normal bowel sounds, soft, no peritoneal signs. Absent: distended, tenderness - Extremities Exam Extremities exam: Present: radial pulses palpable and symetrical. Absent: calf tenderness, cyanotic, pedal edema Additional comments: , Cold to touch, delayed capillary refill, nonpalpable dorsalis pedis pulses - Neurological Exam Neurological exam: Present: CN II-XII intact, oriented X3, no focal deficits. Absent: pronater drift, facial droop, speech deficit - Skin Additional comments: tried cold skin with delayelary re and cyanosis on feet, no open lesions Internal Med - H&P Results - Labs CBC & Chem 7: 05/03/16 08:27 05/03/16 08:27 - EKG Data EKG comments: 05/03/16 10:42 EKG reviewed by myself shows normal sinus rhythm 97 bpm normal axis and intervals no acute ST or T-wave changes.
[2016-05-03] MEDS ORDERED: *HR* HYDROcodone/Acet 10/325 mg TABLET PO PRN (10:48)
[2016-05-03] MEDS ORDERED: Albuterol 2.5 MG/3 ML NEBULIZER IH PRN (10:48)
[2016-05-03] MEDS ORDERED: Ondansetron 4 MG/2 ML VIAL IVP PRN (10:50)
[2016-05-03] MEDS ORDERED: Naloxone 0.4 MG/ML INJ IVP PRN (10:50)
[2016-05-03] MEDS ORDERED: Azithromycin 250 MG TABLET PO SCH (11:00)
[2016-05-03] MEDS: predniSONE 20 MG TABLET PO SCH (11:44)
[2016-05-03] MEDS: Sennosides 8.6 MG TABLET PO SCH ×2 (11:44→20:36)
[2016-05-03] MEDS: Pregabalin 50 MG CAPSULE PO SCH (11:44)
[2016-05-03] MEDS: Nicotine 14 MG PATCH.TD24 TD SCH (11:45)
[2016-05-03] MEDS: Tiotropium 18 MCG inhalation IH SCH (11:54)
[2016-05-03] MEDS: *HR* HYDROmorphone (PF) 1 MG/ML SYRINGE IVP PRN ×3 (13:18→20:35)
[2016-05-03] MEDS: *HR* LORazepam 0.5 MG TABLET PO PRN ×2 (13:22→20:36)
[2016-05-03 15:01] LABS: Bilirubin,Urine Negative (Negative); Blood,Urine Trace (Negative); Clarity,Urine Clear (Clear); Color,Urine Yellow (Yellow); Glucose,Urine (UA) Normal (Normal); Ketones,Urine Negative (Negative); Leukocyte Esterase,Urine Negative (Negative); Nitrite,Urine Negative (Negative); Protein,Urine Negative (Neg-Trace); Specific Gravity,Urine 1.008 (1.010-1.025); Urobilinogen,Urine Normal (Normal)
[2016-05-03 15:04] LABS: Bacteria,Urine None Seen per hpf (None-Few); Hyaline Casts,Urine None Seen per lpf (None-Few); Squamous Epithelial Cell,Urine None Seen per lpf (None-Few); WBC,Urine 0-3 per hpf (0-3)
--- NOTE | 2016-05-03 17:10 | Vascular/Endovasc Consult Note ---
Date of Encounter: 05/03/16 Time of Encounter: 17:05 Assessment and Plan (1) PAD (peripheral artery disease) Current Visit: Yes Status: Acute Profound and diffuse lower extremity occlusive disease. On the basis of her physical exam she appears to have a right iliac artery occlusion with bilateral superficial femoral artery occlusion. I also suspect she has diffuse tibial artery disease. With her long history of tobacco abuse her diffuse vascular disease is not unexpected. I had a very long conversation with the patient and then I called the patient's daughter Karolina and had another long and involved conversation talking about the risks and benefits and any potential alternatives. The patient is an extremely poor candidate for any type of anesthetic and should be avoided at all costs. Long-term control with narcotics for profound ischemia is very poor. I raised the issue of all potential angiogram and endovascular intervention for the right lower extremity. I cautioned that this has its own attendant risks. In addition we may find lesions that are not amenable to endovascular therapy. I offered that I was willing to try this as a last attempt to control her lower extremity ischemic symptoms. If no treatable lesions are found then the patient would be best served by continuing her hospice status and be managed with outpatient analgesia. The patient understands this as does the daughter. We will then tentatively plan on an angiogram tomorrow with possible right lower extremity endovascular intervention with focus on the right iliac system - History of Present Illness Consult date: 05/03/16 Consult reason: Bilateral foot pain Chief complaint: Bilateral foot pain History of present illness: Ms. Quiroga is a 70 year old female Admitted via the emergency room earlier today with bilateral lower extremity and foot pain. Patient states this is been ongoing for about 2 weeks. She was in the emergency room yesterday and an ankle brachial index was performed. This showed the ankle-brachial index to be 0.21 on the right and 0.41 on the left. The patient was discharged to home with the schedule outpatient follow-up appointment next week in the vascular surgery clinic. The patient returned this morning because of persistent pain. She was then admitted to the hospitalist service and consultation was requested from vascular surgery in an attempt to try to offer the patient some nonsurgical approach to alleviate her left lower extremity and right lower extremity pain. The patient describes both lower extremities to be involved but more so on the right side than on the left. On the right side the pain begins at the level of the knee and radiates distally into the foot. On the left side the discomfort is primarily in the foot itself. The patient does very little walking. To complicate matters the patient has profound COPD and is in a hospice at home situation due to her profound pulmonary disease. The patient has a history of lung cancer and had undergone chemotherapy and radiation therapy for a right lung mass. In addition she has severe degenerative disease of her spine. She is seeing a pain specialist and has undergone a number of procedures including nerve ablation. In addition she has a history of a left upper extremity venous blood clot that apparently was treated with short-term anticoagulation. The patient denies any claudication symptoms but she does very little walking. Her home situation as she lives in an apartment by herself but received significant assistance from her family on a daily basis and has a visiting nurse. She denies any previous history of lower extremity vascular intervention or known history of peripheral vascular occlusive disease. She follows through her primary care physician for her overall medical management and is seen Dr. Land of pulmonary for assistance in management of her profound and crippling pulmonary disease. The patient is very anxious to have some relief of the severe ischemic rest pain of her lower extremities. Past Med Surg Social Fam HX - Past Medical History Medical history: arthritis, asthma, cancer, COPD, GERD, hyperlipidemia, hypertension, other Psychiatric history: anxiety, depression - Past Surgical History Surgical History: hip replacement, other - Social History Smoking Status: Current every day smoker Smokeless Tobacco Status: No Alcohol use: none Drug use: none - Family History Mother Living Status: Hx Family Cancer: Yes (Brain) Father Living Status: Hx Family Cancer: Yes (Lung) Medications and Allergies Oxygen 4 l NS CONT 10/26/14 [History] Duloxetine [Cymbalta] 30 mg PO DAILY 08/12/15 [History] Albuterol Neb [Proventil Neb] 2.5 mg IH Q6H PRN 03/27/16 [History] Albuterol Sulfate [Albuterol Inhaler] 2 puff IH Q4H PRN 03/27/16 [History] Pregabalin [Lyrica] 50 mg PO DAILY 03/27/16 [History] Tiotropium [Spiriva] 18 mcg IH DAILY 03/27/16 [History] Docusate [Colace] 100 mg PO BID #60 capsule 03/30/16 [Rx] LORazepam [Ativan] 0.25 mg PO Q4H PRN #30 tablet 03/30/16 [Rx] PredniSONE 40 mg PO DAILY #4 tablet 03/30/16 [Rx] Sennosides [Senna] 17.2 mg PO BID #60 tablet 03/30/16 [Rx] Clopidogrel [Plavix] 75 mg PO DAILY #30 tablet 05/02/16 [Rx] OxyCODONE/APAP 10/325 [Percocet 10/325 MG] 1 each PO Q6HR PRN #12 tablet [Rx] Allergies fluoxetine Allergy (Verified 05/03/16 12:09) Swelling of Lip/Tongue/Throat Sulfa (Sulfonamide Antibiotics) Allergy (Verified 05/03/16 08:17) Swelling of Lip/Tongue/Throat Hives All Systems Review: A 10-system review of systems was performed and is negative for pertinent findings except as documented above in the HPI. Exam Vital Signs, Last 4 Hours Temp Pulse Resp BP Pulse Ox 05/03/16 15:31 97.4 F L 98 18 135/90 97 General: Present: Conversant, Other (Cachectic appearing elderly white female who appears older than her stated age. She appears very fragile. She has diffuse and significant muscle wasting of her face and neck and entire body.) HEENT: Present: Atraumatic, Trachea midline Neck: Absent: JVD, Midline deformity, Tracheal deviation Cardiac: Present: Reg Rate and Rhythm, No Murmur Lungs: Present: Decreased breath sounds, Other (Course and rubbing breath sounds bilaterally) Neuro: Present: Alert and responsive, No focal deficits noted Abdomen: Present: Soft, Non-tender, Other (Scaphoid) Vascular: Present: Pulse, absent (There are no palpable pulses on the right side from the femoral to the pedal level. On the left side there is no palpable popliteal or ankle pulse.), Pulse, normal (The patient has a palpable left femoral pulse with a femoral bruit. There is no right femoral bruit.), Cyanosis , Color/Temperature (Both feet are cold to the touch. She has ruborous purple discoloration of the plantar surface of her feet and toes bilaterally. No open ulcerations. She has tenderness on manipulation of her calf distally on the right side. There is no signs of fasciitis or cellulitis.) Skin: Present: No rashes noted on visualized skin Consult Discharge Plan - Plan Referrals: Caridad Rosales MD [Primary Care Provider] -
[2016-05-03] MEDS: *HR* Heparin 5,000 UNIT/ML VIAL SQ SCH (17:30)
[2016-05-04] MEDS: *HR* HYDROmorphone (PF) 1 MG/ML SYRINGE IVP PRN ×2 (00:16→03:21)
[2016-05-04] MEDS: 0.9 % Sodium Chloride 1,000 ML IVC SCH ×2 (00:17→22:37)
[2016-05-04] MEDS: *HR* OxyCODONE/APAP 10/325 TABLET PO PRN ×2 (02:42→07:46)
[2016-05-04] MEDS: *HR* LORazepam 0.5 MG TABLET PO PRN ×4 (03:21→23:06)
[2016-05-04 05:26] LABS: Basophils % 0.1 %; Eosinophils % 0.2 %; Hematocrit 36.8 % (35.3-44.9); Hemoglobin 11.8 g/dL (11.5-15.4); Lymphocytes # 0.8 K/mcL (0.6-4.6); Lymphocytes % 4.8 %; Mean Corpuscular HGB Conc 32.1 g/dL (31.6-35.5); Mean Corpuscular Hemoglobin 31.5 pg (28.0-33.3); Mean Corpuscular Volume 98.1 fL (83.0-100.0); Mean Platelet Volume 9.1 fL (9.4-12.4); Monocytes # 0.8 K/mcL (0.0-1.3); Monocytes % 4.9 %; Neutrophils # 14.5 K/mcL (1.6-8.9); Platelet Count 321 K/mcL (140-400); Red Blood Count 3.75 M/mcL (3.82-4.97); Red Cell Distribution Width 13.8 % (11.5-14.5)
[2016-05-04 05:43] LABS: BUN/Creatinine Ratio 19 (6-26); Blood Urea Nitrogen 12 mg/dL (7-20); Calcium 8.8 mg/dL (8.6-10.8); Carbon Dioxide 29 mEq/L (19-29); Chloride 100 mEq/L (98-109); Glucose 110 mg/dL (70-99); Magnesium 1.8 mg/dL (1.6-2.6); Osmolality,Calculated 284 (280-300); Potassium 3.5 mEq/L (3.5-4.5); eGFR For African Americans > 60 (> 60); eGFR For Non-African Americans > 60 (> 60)
[2016-05-04 05:50] LABS: Sodium 137 mEq/L (136-145)
[2016-05-04] MEDS: *HR* Heparin 5,000 UNIT/ML VIAL SQ SCH ×2 (05:59→17:45)
[2016-05-04] MEDS: Nicotine 14 MG PATCH.TD24 TD SCH (07:44)
[2016-05-04] MEDS: predniSONE 20 MG TABLET PO SCH (07:45)
[2016-05-04] MEDS: Sennosides 8.6 MG TABLET PO SCH ×2 (07:45→20:02)
[2016-05-04] MEDS: Pregabalin 50 MG CAPSULE PO SCH (07:46)
[2016-05-04] MEDS: Tiotropium 18 MCG inhalation IH SCH (08:25)
--- NOTE | 2016-05-04 10:02 | Palliative - Consult Note ---
Date of Encounter: 05/04/16 Time of Encounter: 09:30 - Assessment and Plan (1) End stage COPD Current Visit: Yes Status: Acute Assessment and plan: Ms. Fishman is enrolled in hospice services for her end stage COPD. She is on chronic home O2. Supportive care related to COPD. She does intend to return home with hospice services upon discharge. (2) PAD (peripheral artery disease) Current Visit: Yes Status: Acute Assessment and plan: Vascular surgery consulted. (3) Counseling regarding advanced care planning and goals of care Current Visit: No Status: Acute Assessment and plan: Discussed goals of care with patient. She does intend to return home with hospice services upon discharge if she is able. Code status was established prior to return to hospital, and Ms. Fishman confirms again. Continue to follow. (4) Anxiety about health Current Visit: Yes Status: Chronic Assessment and plan: Chronic anxiety related to health conditions and dyspnea. She has been taking Lorazepam with improvement. Her anxiety is stable/managed. Continue with current treatment plan. She has used 4 doses of lorazepam since admission. (5) Lower back pain Current Visit: Yes Status: Chronic Assessment and plan: Ms. Fishman has chronic back pain and previously followed with Dr. Harris out of [place] prior to entering in to hospice care. OARRS reviewed and appropriate. She was started on Morphine ER 15mg BID on 04/17/16. Will adjust as necessary. Qualifiers: Chronicity: chronic Back pain laterality: midline Sciatica presence: with sciatica Sciatica laterality: bilateral sciatica Qualified Code(s): M54.41 - Lumbago with sciatica, right side; M54.42 - Lumbago with sciatica, left side; G89.29 - Other chronic pain (6) Severe protein-calorie malnutrition Current Visit: No Status: Chronic Assessment and plan: Encourage food preferences. (7) Therapeutic opioid induced constipation Current Visit: No Status: Chronic Assessment and plan: Ms. Fishman reports last BM was 2 days ago. Her typical schedule is a BM every 2-3 days. She has been ordered Senna and colace at this time. Will continue to follow and adjust as necessary. Palliative-CN HPI - Data of Consult Patient: known to practice within the last 3 years Consult date: 05/04/16 Requesting Physician: Rosa Tong Primary Care Provider: Caridad Rosales - Consult Narrative Palliative Care/Comfort Measures: Palliative care Reason for consult: Goals of care History of present illness: Ms. Fishman is a 70 year old female known to the palliative care team from prior admissions. She lives at home with close supervision from her family. Ms. Fishman has been enrolled in [facility] since March 2016. For one week prior to admission, she has been experiencing bilateral leg pain. She rated pain on admission as 10/10 and described as burning. Currently, her pain is rated 6-7/10, burning, no radiation, right leg with more pain than the left. Her feet have been discolored for greater than one month. She was admitted for further work-up and treatment with a vascular surgery consult. Ms. Fishman has an extensive history of lung disease. She has been enrolled in hospice care for lung disease. She continues to smoke about 10 cigarettes per day. Her breathing is at baseline with a chronic productive cough. She does report intermittent sore throat, but denies fever. Appetite is fair and her weight is stable. She is able to ambulate 10 feet at the max without getting short of breath. The palliative care team was consulted to assist with goals of care. CC: Rosa Tong Past Med Surg Social Fam HX - Past Medical History Source: patient, old records reviewed Medical history: arthritis, asthma, cancer (lung CA stage III-stable. ), COPD, GERD, hyperlipidemia, hypertension, other Psychiatric history: anxiety, depression - Past Surgical History Surgical History: hip replacement, other - Social History Smoking Status: Current every day smoker (1/2 ppd) Smokeless Tobacco Status: No Alcohol use: none Drug use: none Current living situation: Home, With Family Activity Level: Uses cane/walker - Family History Mother Living Status: Hx Family Cancer: Yes (Brain) Father Living Status: Hx Family Cancer: Yes (Lung) Medications and Allergies Oxygen 4 l NS CONT 10/26/14 [History] Duloxetine [Cymbalta] 30 mg PO DAILY 08/12/15 [History] Albuterol Neb [Proventil Neb] 2.5 mg IH Q6H PRN 03/27/16 [History] Albuterol Sulfate [Albuterol Inhaler] 2 puff IH Q4H PRN 03/27/16 [History] Pregabalin [Lyrica] 50 mg PO DAILY 03/27/16 [History] Tiotropium [Spiriva] 18 mcg IH DAILY 03/27/16 [History] Docusate [Colace] 100 mg PO BID #60 capsule 03/30/16 [Rx] LORazepam [Ativan] 0.25 mg PO Q4H PRN #30 tablet 03/30/16 [Rx] PredniSONE 40 mg PO DAILY #4 tablet 03/30/16 [Rx] Sennosides [Senna] 17.2 mg PO BID #60 tablet 03/30/16 [Rx] Clopidogrel [Plavix] 75 mg PO DAILY #30 tablet 05/02/16 [Rx] OxyCODONE/APAP 10/325 [Percocet 10/325 MG] 1 each PO Q6HR PRN #12 tablet [Rx] Allergies fluoxetine Allergy (Verified 05/03/16 12:09) Swelling of Lip/Tongue/Throat Sulfa (Sulfonamide Antibiotics) Allergy (Verified 05/03/16 08:17) Swelling of Lip/Tongue/Throat Hives - Constitutional Constitutional ROS PAL: no chills, no fever(s), no weight loss - EENT Eyes: requires corrective lenses, no change in vision Ears: no decreased hearing Ears, nose, mouth, throat: sore throat, no dysphagia - Cardiovascular Cardiovascular ROS: dyspnea on exertion (chronic), no chest pain, no chest pain with activity, no irregular heart rhythm, no leg edema Additional comments: bilateral leg/foot pain with discoloration of toes. - Respiratory Respiratory: cough (chronic), dyspnea, dyspnea on exertion - Gastrointestinal Gastrointestinal: constipation (chronic opioid induced. ), no diarrhea, no nausea, no vomiting - Genitourinary Palliative ROS female: no difficulty voiding, no dysuria - Musculoskeletal Musculoskeletal ROS IM: back pain (chronic ) - Integumentary ROS Integumentary: no skin ulcer, no unusual bruising - Neurological Neurological ROS: burning sensations (bilateral legs/feet) - Psychiatric Psychiatric general PM: anxiety Palliative Care-Exam - Constitutional Vitals: Temp Pulse Resp BP Pulse Ox 98.0 F 94 18 152/93 94 L 05/04/16 07:06 05/04/16 07:06 05/04/16 08:29 05/04/16 07:06 05/04/16 08:29 General appearance: Present: cooperative, no acute distress, thin Exam: 70 year old female appearing chronically ill, bilateral feet discolored. - Head Head Exam: Present: normal inspection - Eye Eye exam: Present: EOMI Pupils: Present: PERRL - ENT ENT exam: Present: mucous membranes moist - Expanded ENT Exam Teeth exam: Present: edentulous (dentures in place) - Respiratory Respiratory exam: Present: decreased breath sounds. Absent: accessory muscle use, respiratory distress - Cardiovascular Cardiovascular exam: Present: RRR - Expanded Cardiovascular Exam Peripheral pulses: 0: Posterior Tibialis (L), Posterior Tibialis (R), Dorsalis Pedis (L) PM, Dorsalis Pedis (R) PM - GI/Abdominal Exam GI/Abdominal exam: Present: normal bowel sounds, soft. Absent: tenderness - Rectal Rectal exam: Present: deferred - Extremities Exam Extremities exam: Absent: normal inspection (bilateral feet discolored with 5th toe on right foot with purple discoloration ) - Expanded Lower Extremities Exam Neuro vascular tendon exam: Absent: no vascular compromise - Neurological Exam Neurological exam: Present: alert, oriented X3, no focal deficits, strengths equal and symetr throughout (global weakness) - Psychiatric Psychiatric exam: Present: anxious - Skin Skin exam: Present: dry, warm Additional comments: bilateral feet with purple discoloration to the 5th toe of the right foot. plantar aspect of the right foot also discolored. Internal Medicine - CN: Reslt - Labs CBC & Chem 7: 05/04/16 04:34 05/04/16 04:34 Labs: Short CBC 05/04/16 Range/Units 04:34 WBC 16.4 H (4.3-11.1) K/mcL Hgb 11.8 D (11.5-15.4) g/dL Hct 36.8 (35.3-44.9) % Plt Count 321 (140-400) K/mcL Neutrophils # 14.5 H (1.6-8.9) K/mcL BMP 05/04/16 04:34 Sodium 137 D Potassium 3.5 Chloride 100 Carbon Dioxide 29 BUN 12 Creatinine 0.64 Glucose 110 H Calcium 8.8 Urine 05/03/16 Range/Units 14:48 Urine Color Yellow (Yellow) Urine Clarity Clear (Clear) Urine pH 7.0 (5.0-8.0) pH Units Ur Specific [place] 1.008 L (1.010-1.025) Urine Protein Negative (Neg-Trace) mg/dL Urine Glucose (UA) Normal (Normal) mg/dL - ABG Interpretation ABG results: PT/INR, D-dimer PT 10.1 Seconds (9.4-12.1) 05/03/16 08:27 Consult Discharge Plan - Plan Referrals: Caridad Rosales MD [Primary Care Provider] - Palliative Quality Palliative Quality: Screen for Code Status: Yes (established), Screen for Goals of Care: Yes, Screen for Pain: Yes, If Pain Regimen Started, Initiate Bowel Regimen: Yes, Screen for Nausea/Vomitting: Yes
--- NOTE | 2016-05-04 10:10 | Internal Med Progress Note ---
Date of Encounter: 05/04/16 Time of Encounter: 10:08 - Assessment and plan (1) Acute bronchitis Current Visit: Yes Status: Acute Assessment and plan: Acute bronchitis, likely bacterial Start ceftriaxone, stop azithromycin Sputum culture Qualifiers: Bronchitis organism: unspecified organism Qualified Code(s): J20.9 - Acute bronchitis, unspecified (2) Claudication Current Visit: Yes Status: Acute Assessment and plan: Secondary to severe peripheral artery disease with an REGLA of 0.41 in the left lower extremity and 0.21 in the right lower extremity Followed by Dr. Sorensen, recommendations appreciated, angiography is being considered Continue Plavix which was started just a few days ago (3) Severe peripheral arterial disease Current Visit: Yes Status: Acute (4) History of lung cancer Current Visit: No Status: Chronic (5) Severe chronic obstructive pulmonary disease Current Visit: No Status: Chronic Assessment and plan: Chronic respiratory failure, stable. The patient uses 3 L at home at night and as needed Decrease dose of prednisone from 40 mg down to 20 mg and tapered down Inhalers as needed (6) Severe protein-calorie malnutrition Current Visit: No Status: Chronic Assessment and plan: Encourage oral intake (7) Tobacco abuse Current Visit: No Status: Chronic Assessment and plan: ( Smoking cessation counseling given for 5 minutes. Nicotine patch offered (8) Leukocytosis Current Visit: Yes Status: Acute Assessment and plan: Possibly related to bacterial bronchitis Qualifiers: Leukocytosis type: unspecified Qualified Code(s): D72.829 - Elevated white blood cell count, unspecified - Time Spent With Patient Greater than 35 minutes - Subjective Interval history: Complains of pain in both lower extremities, still bringing up yellowish phlegm , coughing constantly, no fevers, no abdominal pain, no dysuria. Denies any chest pain - Constitutional Vitals: Temp Pulse Resp BP Pulse Ox 98.0 F 94 18 152/93 94 L 05/04/16 07:06 05/04/16 07:06 05/04/16 08:29 05/04/16 07:06 05/04/16 08:29 General appearance: Present: cachectic, A&O X 3 - Head Head exam: Present: atraumatic, normocephalic - Eye Eye exam: Present: PERRL, conjuntiva pink, sclera anicteric Pupils: Present: PERRL - Neck Neck exam general surgery: Present: supple, trachea midline. Absent: lymphadenopathy - Respiratory Respiratory exam: Present: decreased breath sounds (Upper airway congestion), CTAB. Absent: accessory muscle use, rales, rhonchi, wheezes - Cardiovascular Cardiovascular exam: Present: RRR, +S1, +S2. Absent: diastolic murmur, gallop, rubs, systolic murmur - GI/Abdominal GI/Abdominal exam: Present: normal bowel sounds, soft, no peritoneal signs. Absent: distended, tenderness - Extremities Exam Extremities exam: Absent: calf tenderness, cyanotic, pedal edema, warm, radial pulses palpable and symetrical Additional comments: Both lower extremities are cold but she is able to move her toes, pulses are not well felt. Capillary filling is delayed - Neurological Exam Neurological exam: Present: CN II-XII intact, oriented X3, no focal deficits. Absent: pronater drift, facial droop, speech deficit - Skin Skin exam: Present: dry, intact Additional comments: Multiple Small excoriations throughout her back Internal Medicine: Result - Labs CBC & Chem 7: 05/04/16 04:34 05/04/16 04:34 Labs: Short CBC 05/04/16 Range/Units 04:34 WBC 16.4 H (4.3-11.1) K/mcL Hgb 11.8 D (11.5-15.4) g/dL Hct 36.8 (35.3-44.9) % Plt Count 321 (140-400) K/mcL Neutrophils # 14.5 H (1.6-8.9) K/mcL BMP 05/04/16 04:34 Sodium 137 D Potassium 3.5 Chloride 100 Carbon Dioxide 29 BUN 12 Creatinine 0.64 Glucose 110 H Calcium 8.8 Urine 05/03/16 Range/Units 14:48 Urine Color Yellow (Yellow) Urine Clarity Clear (Clear) Urine pH 7.0 (5.0-8.0) pH Units Ur Specific [place] 1.008 L (1.010-1.025) Urine Protein Negative (Neg-Trace) mg/dL Urine Glucose (UA) Normal (Normal) mg/dL - ABG Interpretation ABG results: PT/INR, D-dimer PT 10.1 Seconds (9.4-12.1) 05/03/16 08:27 Consult Discharge Plan - Plan Referrals: Caridad Rosales MD [Primary Care Provider] -
[2016-05-04] MEDS ORDERED: predniSONE 20 MG TABLET PO SCH (10:13)
[2016-05-04] MEDS ORDERED: *HR* Heparin 10,000 UNIT/10 ML VIAL ONE (10:36)
[2016-05-04] MEDS ORDERED: 0.9 % Sodium Chloride 1,000 ML ONE (10:36)
[2016-05-04] MEDS ORDERED: Heparin 1,000 UNITS/500 mL NS 500 ML ONE ×2 (10:36→13:42)
[2016-05-04] MEDS ORDERED: *HR* FentaNYL (PF) 100 MCG/2 ML VIAL ONE ×2 (12:27→13:50)
--- NOTE | 2016-05-04 12:28 | Pre-Sedation Evaluation ---
Pre-sedation evaluation - Pre-sedation checklist Date of procedure: 05/04/16 Procedure: Angiography Recent Vitals: Last Vital Signs Temp 98.1 F 05/04/16 11:10 Pulse 109 05/04/16 11:10 Resp 17 05/04/16 11:10 BP 133/86 05/04/16 11:10 Pulse Ox 94 L 05/04/16 11:10 H&P (including ROS) documented in medical record: Yes Previous reaction to sedatives/anesthetics: No Dietary Status: NPO after Midnight Dentition: No loose teeth or bridges Possible difficult airway: No ASA Classification *see protocol: CLASS IV-Severe systemic disease/constant threat to pt's life Plan of Care: Pt appropriate candidate for procedure/moderate/conscious sedation , Risks/benefits of procedure/sedation discussed w/ patient/family
--- NOTE | 2016-05-04 13:48 | Electrocardiograph Report ---
[place] [id number] Test Date: 2016-05-03 Pat Name: Virginia Quiroga Department: 105 Room: 3B44 Gender: F Vocational Rehabilitation Consultant: : 1945 Requested By: Reza Stephenson Order Number: [id number] Reading MD: Vj Smith DO Measurements Intervals [place] Rate: 97 P: 75 [place]: 131 QRS: 58 QRSD: 77 T: 61 QT: 327 QTc: 382 Interpretive Statements Sinus rhythm Possible left ventricular hypertrophy Electronically Signed On 05-04-2016 13:46:52 EST by Vj mSith DO
--- NOTE | 2016-05-04 14:03 | Procedure Note ---
Date of procedure: 05/04/16 Pre-op diagnosis: PAD/ischemic rest pain Post-op diagnosis: same Procedure: abdominal aortogram aortogram with bilateral runoff right external iliac artery STATISTICAL ASSISTANT balloon angioplasty right SFA STATISTICAL ASSISTANT balloon angioplasty Anesthesia: MAC Surgeon: Ever Sorensen Condition: stable Disposition: floor (successful balloon angioplasty of right lower extremity occlusions)
[2016-05-04] MEDS ORDERED: Acetaminophen 325 MG TABLET PO PRN (14:04)
--- NOTE | 2016-05-04 14:18 | Invasive Diagnostic Lab Proc ---
Name: Virginia Quiroga Date of Study: 05/04/2016 Date: 1945 Ht: 157.0 in Medical Record#: [id number] Age: 70 Wt: 40 lb Gender: Female BSA: 1.35 Order #: [id number] BMI: 16.23 Physicians Performing MD: Ever Sorensen MD, FACS Referring MD: Caridad Rosales MD Referring MD: Indications Claudication Procedures Performed AORTOGRAPHY, ABDOMINAL S\\T\\I AORTOGRAPHY EXT Bilat S\\T\\I ILIAC REVASC FEM/POPL REVAS W/TLA Pre-Procedure Checklist Informed consent is complete signed and on chart. H\\T\\P is on chart. ID band is on and ID verified with patient. Patient NPO for procedure The procedure was described for the patient and questions were answered. Blood Pressure: 142/90 ECG is on chart. Rhythm: Sinus Tachycardia Plan of Care Patient will tolerate the procedure without complications. Adequate level of comfort will be maintained. Hemodynamics will remain stable Patient will recover from procedure without complications. Respiratory function will be maintained. Cardiac rhythm will remain stable. Patient temperature will be maintained. Patient and/or family have verbalized understanding of the procedure. Patient Education Chief Complaint/Reason for Test: Peripheral angiogram Developmental Category: Geriatric (65+ years) Learning Barriers: None Education Needs: Procedure Education Method: Verbal Information Taught: Peripheral angiogram Educational Evaluation: Able to repeat information Intravenous Access Time IV Size Location DC'd Fluid/Drip Rate Units RN 12:18 22g 1" Patent On Arrival Lt Arm 0.9NaCl 25 ml/hr Ivelisse Holder RN Allergies fluoxetine SULFA Vital Signs Time BP Systolic BP Diastolic HR O2 Sats ASA 12:18 PM 12:18 PM 12:35 PM 12:35 PM 12:50 PM 01:04 PM 01:04 PM 01:20 PM 01:28 PM 01:28 PM 01:47 PM 12:27 PM 142 90 117 100 12:32 PM 133 87 113 100 12:37 PM 132 86 117 100 12:42 PM 137 87 115 100 12:47 PM 138 91 114 100 12:53 PM 135 82 108 100 12:57 PM 127 80 107 100 01:02 PM 122 83 111 100 01:07 PM 131 88 109 100 01:12 PM 124 87 106 100 01:17 PM 122 81 107 100 01:22 PM 127 87 106 100 01:27 PM 133 90 111 100 01:32 PM 142 100 114 100 01:38 PM 149 118 117 100 01:43 PM 152 107 115 100 01:48 PM 154 112 117 100 01:53 PM 152 106 115 100 01:47 PM Procedure Medications Time Medication Dose Units Method Route 12:18 PM Oxygen 4 L/min nasal cannula 12:30 PM Fentanyl 25 mcg Intravenous 12:37 PM Lidocaine 2% 10 ml Subcutaneous 12:51 PM Fentanyl 25 mcg Intravenous 01:29 PM Fentanyl 25 mcg Intravenous 01:31 PM Heparin 4000 units Intravenous 01:39 PM Fentanyl 25 mcg Intravenous 01:50 PM Fentanyl 25 mcg Intravenous 01:59 PM Plavix 75 mg Orally ASA Classification: CLASS III- Severe systemic disease (i.e. prior AMI, diabetes with vascular complications, morbid obesity) Werner Score Preprocedure Postprocedure Activity 1- Moves 2 extremities sustained head lift Activity 1- Moves 2 extremities sustained head lift Circulation 1- SBP+/= 20 - 50 points of pre-anesthetic level Circulation 1- SBP+/= 20 - 50 points of pre-anesthetic level Consciousness 2- Awake and alert oriented x 3 Consciousness 2- Awake and alert oriented x 3 O2 Saturation 2- Able to maintain O2 satruation of 92% on room air O2 Saturation 2- Able to maintain O2 satruation of 92% on room air Respiratory 2- Able to deep breathe and cough well Respiratory 2- Able to deep breathe and cough well Total Score 8 Total Score 8 Contrast: Isovue 250- 150ml Contrast Amount: 87 ml Fluoro Dose: 342 mGy Activated Clotting Time Time Drawn ACT (sec) 02:04 PM 238 Procedure Log Time Note Entered By 12:18 PM 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 tsites 12:25 PM Procedure start 12:25 tsites 12:30 PM 12:30 Fentanyl 25 mcg Intravenous Given by Ivelisse Holder RN tsites 12:30 PM Time: 12:18 Is patient comfortable and pain free?: Yes tsites 12:30 PM Time: 12:18LOC: 4 = Oriented but drowsy tsites 12:35 PM Time: 12:35 Is patient comfortable and pain free?: Yes ejohnson 12:35 PM Time: 12:35LOC: 5 = Fully awake and oriented or at pre-proc level ejohnson 12:37 PM Time out perfomed ejohnson 12:37 PM 12:37 10 ml Lidocaine 2% to left groin Subcutaneous Given By Ever Sorensen MD, FACS ejohnson 12:41 PM Micro-Introducer kit utilized for sheath placement ejohnson 12:41 PM 0.035 180cm J-wire wire utilized to assist with catheter placement ejohnson 12:41 PM Sheath exchanged for a 4 Fr 10 cm Advanti sheath inserted into left femoral artery ejohnson 12:42 PM 4Fr Omniflush catheter inserted over the wire ejohnson 12:43 PM J wire removed ejohnson 12:43 PM hand injection 3 ml of contrast ejohnson 12:44 PM Abdominal aorta with outflow angiography performed in AP contrast injected 20 mls. ejohnson 12:45 PM Abdominal angiogram with runoff completed: 5 ml/sec for a total of 50 mls ejohnson 12:50 PM Time: 12:35LOC: 5 = Fully awake and oriented or at pre-proc level ejohnson 12:50 PM Time: 12:35 Is patient comfortable and pain free?: Yes ejohnson 12:51 PM 12:51 Fentanyl 25 mcg Intravenous Given by Nigel Simpson RN ejohnson 12:43 PM J wire reinserted to position catheter ejohnson 12:43 PM j wire removed ejohnson 12:54 PM hand injection of 3 ml of contrast ejohnson 12:54 PM Time: 12:50LOC: 5 = Fully awake and oriented or at pre-proc level ejohnson 12:54 PM Time: 12:50 Is patient comfortable and pain free?: Yes ejohnson 12:56 PM 0.035 260cm Luther-angled wire utilized to assist with catheter placement ejohnson 12:59 PM glidewire removed ejohnson 01:00 PM Sheath exchanged for a 5 Fr 45 cm Flexor Check-Papo Performer sheath inserted into left femoral artery ejohnson 01:04 PM Time: 13:04 Is patient comfortable and pain free?: No ejohnson 01:04 PM Time: 13:04LOC: 5 = Fully awake and oriented or at pre-proc level ejohnson 01:01 PM j wire inserted with the omni flush ejohnson 01:06 PM catheter removed ejohnson 01:08 PM hand injection of 3 ml of contrast ejohnson 01:09 PM 4Fr 65cm Glidecath Angled-Taper guide catheter ejohnson 01:11 PM wire removed ejohnson 01:11 PM glidewire inserted ejohnson 01:13 PM wire removed ejohnson 01:14 PM hand injection of 5 ml of contrast ejohnson 01:20 PM Time: 13:04LOC: 5 = Fully awake and oriented or at pre-proc level ejohnson 01:20 PM Time: 13:04 Is patient comfortable and pain free?: Yes ejohnson 01:20 PM 4Fr 100cm Glidecath Straight guide catheter over the wire ejohnson 01:15 PM wire reinserted ejohnson 01:19 PM catheter removed ejohnson 01:23 PM Time: 13:20LOC: 5 = Fully awake and oriented or at pre-proc level ejohnson 01:23 PM Time: 13:20 Is patient comfortable and pain free?: Yes ejohnson 01:26 PM wire removed ejohnson 01:28 PM Time: 13:28 Is patient comfortable and pain free?: Yes ejohnson 01:28 PM Time: 13:28LOC: 5 = Fully awake and oriented or at pre-proc level ejohnson 01:29 PM 13:29 Fentanyl 25 mcg Intravenous Given by Nigel Simpson RN ejohnsdebbie 01:31 PM 13:31 Heparin 4000 units Intravenous by Nigel Simpson RN ejohnsdebbie 01:38 PM 4 mm x 200 mm [employer] Supervisor balloon catheter placed into right ejohnson 01:30 PM wire reinserted ejohnson 01:35 PM catheter removed ejohnson 01:39 PM 13:39 Fentanyl 25 mcg Intravenous Given by Nigel Simpson RN ejohnson 01:43 PM Balloon inflated @ 10 juan carlos for 120 seconds ejohnson :43 PM Time: 13:28LOC: 5 = Fully awake and oriented or at pre-proc level ejohnson :43 PM Time: 13:28 Is patient comfortable and pain free?: Yes ejohnson 01:45 PM Diagram Region: Lower Extremity Arteries Anatomical Region: LE-Btm280% Lesion in Proximal Right External Iliac Intervention done: 1 (1=yes, 0=no) ejohnson 01:45 PM Diagram Region: Lower Extremity Arteries Anatomical Region: LE-Cby026% Lesion in Proximal Right Superficial Femoral Intervention done: 1 (1=yes, 0=no) ejohnson :47 PM Time: 13:47 Is patient comfortable and pain free?: Yes ejohnson :47 PM Time: 13:47LOC: 5 = Fully awake and oriented or at pre-proc level ejohnson 01:47 PM Balloon inflated @ 10 juan carlos for 120 seconds ejohnson 01:45 PM balloon repositioned ejohnson 01:49 PM Balloon inflated @ 12 juan carlos for 120 seconds ejohnson 01:50 PM 13:50 Fentanyl 25 mcg Intravenous Given by Nigel Simpson RN ejohnson 01:49 PM balloon repositioned ejohnson 01:52 PM Balloon removed intact ejohnson 01:53 PM hand injection of 4 ml of contrast ejohnson 01:54 PM hand injection of 4 ml of contrast ejohnson 01:55 PM hand injection of 3 ml of contrast ejohnson 01:57 PM wire removed ejohnson 12:27 PM PVIStat 12:27 PM Vitals capture started with the following parameters, Patient=Adult, Interval=5 min, Initial [place]=039 mmHg, Deflation Rate=5 mmHg 12:27 PM PO=324 bpm, YJLE=832/90 mmhg, EuT7=835.0 %, Resp=23 B/min 12:29 PM Recorded ECG: UW=405 Condition=Condition 1 12:32 PM Recorded ECG: SI=924 Condition=Condition 1 12:32 PM LV=827 bpm, DZGM=602/87 mmhg, RvK7=413.0 %, Resp=21 B/min, Comment= 12:37 PM PT=589 bpm, CLEK=737/86 mmhg, FjB0=195.0 %, Resp=23 B/min, Comment= 12:42 PM YT=797 bpm, PDHX=931/87 mmhg, ItM8=095.0 %, Resp=20 B/min, Comment= 12:47 PM QO=178 bpm, NKAC=356/91 mmhg, NaM1=349.0 %, Resp=16 B/min, Comment= 12:53 PM LC=675 bpm, CIMA=337/82 mmhg, IdZ8=855.0 %, Resp=19 B/min, Comment=:57 PM HT=797 bpm, NOSZ=062/80 mmhg, MjX2=840.0 %, Resp=18 B/min, Comment=:02 PM SS=183 bpm, QXTE=829/83 mmhg, TtY7=487.0 %, Resp=18 B/min, Comment=:07 PM OT=817 bpm, NIDA=275/88 mmhg, XlB4=102.0 %, Resp=18 B/min, Comment=:12 PM WV=287 bpm, OTYX=542/87 mmhg, UlL8=781.0 %, Resp=17 B/min, Comment=:17 PM TE=106 bpm, ZNVH=624/81 mmhg, NhJ8=902.0 %, Resp=17 B/min, Comment=:22 PM CY=008 bpm, GCPD=513/87 mmhg, NzT6=216.0 %, Resp=16 B/min, Comment=:27 PM EZ=738 bpm, AZVD=831/90 mmhg, DkX9=821.0 %, Resp=18 B/min, Comment=:32 PM LU=589 bpm, QOEZ=960/100 mmhg, HeC0=696.0 %, Resp=20 B/min, Comment=:38 PM FB=787 bpm, EKSE=397/118 mmhg, WzT7=124.0 %, Resp=11 B/min, Comment=:43 PM CA=147 bpm, FXMK=887/107 mmhg, HzY9=720.0 %, Resp=21 B/min, Comment=ST 01:48 PM KE=010 bpm, BYNP=209/112 mmhg, WjO6=997.0 %, Resp=9 B/min, Comment=ST 01:53 PM OM=771 bpm, FLFK=435/106 mmhg, UhW0=752.0 %, Resp=15 B/min, Comment=ST 01:58 PM Procedure completed at 13:58 ejohnson 01:58 PM Sign Out completed: Radiation Dose 342 mGy Fluoro Time: 15 minutes. Isovue 250- 150ml contrast 87 ml given by Ever Sorensen MD, FACS. Complications: None. Confirmed administered medications: ejohnson 01:59 PM Time: 13:59 Plavix 75 mg Orally Given by Nigel Simpson RN ejohnson 02:01 PM Isovue 300- 150ml,1 bottle(s) used. ejohnson 02:01 PM Sheath left in place to be pulled on floor/holding area ejohnson 02:01 PM Post Blood Pressure: 142/94 ejohnson 02:01 PM Post EKG: Sinus Tachycardia ejohnson 02:02 PM Time: 13:47 Is patient comfortable and pain free?: Yes ejohnson 02:02 PM Time: 13:47LOC: 5 = Fully awake and oriented or at pre-proc level ejohnson 02:02 PM Information taught: Peripheral angiogram and TUBING SUPERVISOR ejohnson 02:02 PM Education needs: Plan of Care and Responsibilities of Patient in Care ejohnson 02:02 PM Learning barriers: None ejohnson 02:02 PM Education methods: Verbal ejohnson 02:02 PM Education evaluation: Able to repeat information ejohnson 02:02 PM Patient pain level 0/10 ejohnson 02:02 PM Site status No bleeding/hematoma - Lt Groin as reported by Wandy Glass RT at 14:02 ejohnson 02:02 PM Opsite applied ejohnson 02:03 PM Family placed in none at this time. ejohnson 02:03 PM Complications: None ejohnson 02:11 PM Diagram Region: Lower Extremity Arteries Anatomical Region: LE-Tzh619% Lesion in Proximal Left Superficial Femoral Intervention done: 0 (1=yes, 0=no) ejohnson 02:12 PM Report given to Susana SHAIKH. Pt taken to , Room # 6 14:12 ejohnson 02:12 PM Pt taken to Room# 6 [facility] Peripheral Anatomy Vessel Pathology Lesion Stenosis Aneurysm Diameter Thrombus Type Right External Iliac Lesion 100 Right Superficial Femoral Lesion 100 Left Superficial Femoral Lesion 100 Peripheral Intervention Anatomical Region:LE-Art Vessel Segment:Undefined Bookmark: [email or web address] Pathology Type:Lesion Pre-Stenosis:100 Peripheral Intervention Anatomical Region:LE-Art Vessel Segment:Undefined Bookmark: [email or web address] Pathology Type:Lesion Pre-Stenosis:100 Post Procedure Information Blood Pressure: 142/94 mmHg Rhythm: Sinus Tachycardia Post procedure instructions given Site Checks Time Location Status Staff Sheath In? Note 2:02:00 PM Lt Wandy Alvarenga RT Pulses Time Site Pre Procedure Post Procedure Note 05/04/2016 12:18:00 PM Lt DP 1+ 05/04/2016 12:18:00 PM Rt DP Doppler 05/04/2016 12:18:00 PM Bilateral radial 2+ 05/04/2016 2:04:00 PM Lt DP 1+ 05/04/2016 2:04:00 PM Rt DP Doppler Updated by Consuelo Mcnair RN on 05/04/2016 2:13:11 PM Consuelo Mcnair RN electronically signed on 05/04/2016 2:13:52 PM with status of Final
[2016-05-04] MEDS: *HR* HYDROcodone/Acet 5/325 mg TABLET PO PRN ×3 (14:44→23:06)
--- NOTE | 2016-05-04 16:04 | Invasive Diagnostic Lab ---
Name: Virginia Quiroga Date of Study: 05/04/2016 Date: 1945 Ht: 157.0 in Medical Record#: [id number] Age: 70 Wt: 40 lb Gender: Female BSA: 1.35 Order #: [id number] Fluoro: 342 mGy BMI: 16.23 Procedure MD: Ever Sorensen MD, FACS Referring MD: Caridad Rosales MD Referring MD: Sheri Shine CNP Procedures Performed: AORTOGRAPHY, ABDOMINAL S\T\I AORTOGRAPHY EXT Bilat S\T\I ILIAC REVASC FEM/POPL REVAS W/TLA Indications: Claudication Impressions: The Abdominal aorta is normal in appearance and free of obstructive disease. The bilateral renals have non-significant disease. The Right External Iliac is occluded. An intervention including balloon angioplasty was performed successfully on the Right External Iliac LOCK MAINTENANCE SUPERVISOR. The Left Common Iliac and Left External Iliac have non significant disease. The right Superficial Femoral and left Superficial Femoral are occluded. Intervention including balloon angioplasty was performed successfully on the right Superficial Femoral LOCK MAINTENANCE SUPERVISOR. The Bilateral Tibials have non-significant disease. Recommendations: 75 mg Plavix PO daily. Optimize medical therapy of patient's disease, including continuing hospice care as an out patient. History/ Risk Factors: Hypertension Chronic Lung Disease Hx of Tobacco Use DVT Technique: After informed consent was obtained the patient was placed on the angiographic table. The access areas were prepped and draped in the usual sterile fashion. A timeout protocol was observed. Access was obtained in the left femoral artery. The catheter was advanced over a wire to the suprarenal aorta and an abdominal aortogram was obtained. The injection catheter was then repositioned at the distal infrarenal aorta. An aortogram with bilateral lower extremity runoff was then performed. Critical lesions were seen on the angiogram with chronic total occlusion of the right external iliac and the bilateral SFA's. A decision was made to proceed to intervention for the right leg lesions in order to better palliate the patient's ischemic rest pain and enhance her quality of life. Diagnostic sheath was exchanged for a 5 Fr. 45 cm. A wire was advanced through the sheath and successfully advanced through the lesions. Heparin was administered. A 4 x 200 mm balloon was advanced over a wire and placed in the right iliac and SFA LOCK MAINTENANCE SUPERVISOR lesions. Several inflations were then made. A completion angiogram was performed which demonstrated successful results. The sheath was removed and hemostasis was achieved with the following measures: Manual Pressure and Closure pad. Vessel Findings: * Lower Extremity Arteries There is a lesion present with 100% stenosis, in the Right External Iliac. An intervention was performed on the Right External Iliac, with a final stenosis of 15%. There were no complications in the vessel segment during the procedure. There is a lesion present with 100% stenosis, in the Right Superficial Femoral. An intervention was performed on the Right Superficial Femoral, with a final stenosis of 15%. There were no complications in the vessel segment during the procedure. There is a lesion present with 100% stenosis, in the Proximal Left Superficial Femoral. No intervention was performed on this Lesion. Lesions: Left Superficial Femoral Stenosis: 100% Right External Iliac Stenosis: 100% Residual Stenosis: 15% Right Superficial Femoral Stenosis: 100% Residual Stenosis: 15% Devices: Vessel Size Diameter Item Serial Number @ @ @ @ @ Total Contrast: Isovue 250- 150ml 87mls Updated by Ever Sorensen MD, FACS on 05/04/2016 3:51:46 PM Ever Sorensen MD electronically signed on 05/04/2016 4:01:05 PM with status of Final
[2016-05-04] MEDS: *HR* Morphine 2 MG/ML SYRINGE IVP PRN (17:17)
[2016-05-04] MEDS ORDERED: *HR* LORazepam 2 MG/ML VIAL IVP ONE (23:06)
[2016-05-04] MEDS ORDERED: *HR* OxyCODONE Immed Rel 5 MG TABLET PO PRN (23:07)
[2016-05-05] MEDS: *HR* Morphine 2 MG/ML SYRINGE IVP PRN ×3 (01:38→16:46)
[2016-05-05] MEDS: *HR* HYDROcodone/Acet 5/325 mg TABLET PO PRN ×4 (03:42→17:49)
[2016-05-05] MEDS: *HR* LORazepam 0.5 MG TABLET PO PRN ×2 (04:36→12:41)
[2016-05-05 04:59] LABS: Hematocrit 34.2 % (35.3-44.9); Mean Corpuscular HGB Conc 32.2 g/dL (31.6-35.5); Mean Corpuscular Hemoglobin 31.8 pg (28.0-33.3); Mean Corpuscular Volume 98.8 fL (83.0-100.0); Mean Platelet Volume 9.1 fL (9.4-12.4); Platelet Count 283 K/mcL (140-400); Red Blood Count 3.46 M/mcL (3.82-4.97); Red Cell Distribution Width 13.8 % (11.5-14.5)
[2016-05-05 05:11] LABS: BUN/Creatinine Ratio 22 (6-26); Blood Urea Nitrogen 12 mg/dL (7-20); Calcium 8.5 mg/dL (8.6-10.8); Carbon Dioxide 27 mEq/L (19-29); Chloride 102 mEq/L (98-109); Glucose 73 mg/dL (70-99); Osmolality,Calculated 282 (280-300); Potassium 3.4 mEq/L (3.5-4.5); Sodium 137 mEq/L (136-145); eGFR For African Americans > 60 (> 60); eGFR For Non-African Americans > 60 (> 60)
[2016-05-05] MEDS: *HR* Heparin 5,000 UNIT/ML VIAL SQ SCH (05:58)
[2016-05-05] MEDS: Pregabalin 50 MG CAPSULE PO SCH (07:40)
[2016-05-05] MEDS: Sennosides 8.6 MG TABLET PO SCH (07:40)
[2016-05-05] MEDS: Nicotine 14 MG PATCH.TD24 TD SCH (07:40)
[2016-05-05] MEDS: Tiotropium 18 MCG inhalation IH SCH (08:20)
--- NOTE | 2016-05-05 09:59 | Palliative Progress Note ---
Date of Encounter: 05/05/16 Time of Encounter: 09:30 - Assessment and plan (1) End stage COPD Current Visit: Yes Status: Acute Assessment and plan: Continue with current management. (2) PAD (peripheral artery disease) Current Visit: Yes Status: Acute Assessment and plan: S/P balloon angioplasty with Dr. Sorensen. (3) Counseling regarding advanced care planning and goals of care Current Visit: No Status: Acute Assessment and plan: Plan to resume hospice care upon discharge. (4) Anxiety about health Current Visit: Yes Status: Chronic Assessment and plan: Lorazepam as needed for increased anxiety. (5) Lower back pain Current Visit: Yes Status: Chronic Assessment and plan: Current medications have been managing her acute pain related to PAD. She was placed on MS Contin 15mg BID in March with hydrocodone for breakthrough pain. Would recommend restarting home medications later today. Will discuss with hospitalist. OARRS report was reviewed this admission. Qualifiers: Chronicity: chronic Back pain laterality: midline Sciatica presence: with sciatica Sciatica laterality: bilateral sciatica Qualified Code(s): M54.41 - Lumbago with sciatica, right side; M54.42 - Lumbago with sciatica, left side; G89.29 - Other chronic pain (6) Severe protein-calorie malnutrition Current Visit: No Status: Chronic Assessment and plan: Encourage meals. Ensure supplements. Dietitian following. (7) Therapeutic opioid induced constipation Current Visit: No Status: Chronic Assessment and plan: Last BM 05/03/16. Senna and colace BID. Continue to follow. - Time Spent With Patient Total time spent is greater than 50% in coordination of care (as documented) at patient's floor/unit and/or counseling patient: - Subjective Interval history: Ms. Quiroga is resting in bed. She had a balloon angioplasty yesterday with Dr. Sorensen. Today, she reports her pain is stable and she has used 3 doses of IV morphine in the past 24 hours with 5 doses of [place]. - Constitutional Vitals: Abnormal lab results WBC 16.5 K/mcL (4.3-11.1) H 05/05/16 04:29 RBC 3.46 M/mcL (3.82-4.97) L 05/05/16 04:29 Hgb 11.0 g/dL (11.5-15.4) L 05/05/16 04:29 Hct 34.2 % (35.3-44.9) L 05/05/16 04:29 MPV 9.1 fL (9.4-12.4) L 05/05/16 04:29 Neutrophils # 14.5 K/mcL (1.6-8.9) H 05/04/16 04:34 Potassium 3.4 mEq/L (3.5-4.5) L 05/05/16 04:29 Creatinine 0.54 mg/dL (0.57-1.11) L 05/05/16 04:29 Calcium 8.5 mg/dL (8.6-10.8) L 05/05/16 04:29 Ur Specific [place] 1.008 (1.010-1.025) L 05/03/16 14:48 Urine Blood Trace (Negative) H 05/03/16 14:48 Urine Microscopic RBC 3-5 per hpf (0-3) H 05/03/16 14:48 Exam: 70 year old female appearing chronically ill. - Respiratory Respiratory exam: Present: wheezes. Absent: accessory muscle use, tachypnea - Cardiovascular Cardiovascular exam: Present: RRR - GI/Abdominal GI/Abdominal exam: Present: normal bowel sounds, soft. Absent: tenderness - Extremities Exam Extremities exam: Absent: normal inspection (bilateral feet with ruberous appearance and purple discoloration to the bilateral plantar surfaces and the 5th toe of the right foot (improved from yesterday)) - Neurological Exam Neurological exam: Present: alert (drowsy, but able to participate in conversation) - Skin Skin exam: Present: dry, warm. Absent: normal color (bilateral feet wiht ruberous appearance and purple discoloration to bilateral plantar surfaces of her feet and the 5th toe of the right foot (improved coloration when compared to yesterday). ) Palliative Quality Palliative Quality: Screen for Code Status: Yes (established), Screen for Goals of Care: Yes, Screen for Pain: Yes, If Pain Regimen Started, Initiate Bowel Regimen: Yes, Screen for Nausea/Vomitting: Yes - Labs CBC & Chem 7: 05/05/16 04:29 05/05/16 04:29 Labs: Laboratory Results - last 24 hr 05/05/16 05/05/16 04:29 04:29 WBC 16.5 H RBC 3.46 L Hgb 11.0 L Hct 34.2 L MCV 98.8 MCH 31.8 MCHC 32.2 RDW 13.8 Plt Count 283 MPV 9.1 L Sodium 137 Potassium 3.4 L Chloride 102 Carbon Dioxide 27 BUN 12 Creatinine 0.54 L Est GFR ( Amer) > 60 Est GFR (Non-Af Amer) > 60 BUN/Creatinine Ratio 22 Glucose 73 Calculated Osmolality 282 Calcium 8.5 L - ABG Interpretation ABG results: PT/INR, D-dimer PT 10.1 Seconds (9.4-12.1) 05/03/16 08:27 Consult Discharge Plan - Plan Referrals: Caridad Rosales MD [Primary Care Provider] -
[2016-05-05] MEDS ORDERED: *HR* Morphine Sulfate SR (12 HR) 15 MG TABLET.ER PO SCH (11:03)
[2016-05-05] MEDS: 0.9 % Sodium Chloride 1,000 ML IVC SCH (11:20)
--- NOTE | 2016-05-05 14:44 | Vascular/Endovas Progress Note ---
Date of Encounter: 05/05/16 Time of Encounter: 14:42 - Assessment and plan (1) PAD (peripheral artery disease) Current Visit: Yes Status: Acute s/p right LE angioplasties. successful in resolution of rest pain perfusion much improved though the discoloration of feet remains unchanged. OK to D/C from vascular perspective continue plavix at home do not plan further vascular interventions(left SFA is occluded) no scheduled f/u with me is necessary due to overall physical status/DNR--may return to [facility] prn - Subjective Interval history: Pt had sigfinicant LE pain last night. Much better now, States her right LE feels much better following yesterday"s FILE CLERK Vital Signs, Last 4 Hours Temp Pulse Resp BP Pulse Ox 05/05/16 10:53 97.8 F 109 12 176/109 100 - Physical Examination General: Present: Conversant, No Apparent Distress Vascular: Present: Normal capillary refill, Pulse, normal (now has palpable right femoral pulse), Color/Temperature (abn color of hands and feet with purplish discoloration feet warm ) Abdomen: Present: Soft, Non-tender Results 05/05/16 04:29 05/05/16 04:29 Lab Results, Last 24 hours 05/05/16 05/05/16 04:29 04:29 WBC 16.5 H Hgb 11.0 L Hct 34.2 L Plt Count 283 Sodium 137 Potassium 3.4 L Chloride 102 Carbon Dioxide 27 BUN 12 Creatinine 0.54 L Glucose 73 Calcium 8.5 L Consult Discharge Plan - Plan Referrals: Caridad Rosales MD [Primary Care Provider] - 05/13/16 1:45 pm Ever Sorensen MD [Partnered Physician] - (follow up with Dr Sorensen prn)
[2016-05-05 16:06] VITALS: BP 107/53
--- NOTE | 2016-05-05 16:22 | Discharge Summary ---
Date of Encounter: 05/05/16 Time of Encounter: 16:20 - Discharge Diagnosis (1) Claudication Priority: Primary Status: Acute Comments: severe peripheral vascular disease status post right lower extremity angioplasty (2) Acute bronchitis Priority: Primary Status: Acute Comments: acute COPD exacerbation likely 2ry to acute bacterial bronchitis Qualifiers: Bronchitis organism: unspecified organism Qualified Code(s): J20.9 - Acute bronchitis, unspecified (3) Severe peripheral arterial disease Priority: Primary Status: Acute (4) History of lung cancer Priority: Secondary Status: Chronic (5) Severe chronic obstructive pulmonary disease Priority: Secondary Status: Chronic (6) Severe protein-calorie malnutrition Priority: Secondary Status: Chronic (7) Tobacco abuse Priority: Secondary Status: Chronic (8) Leukocytosis Priority: Secondary Status: Acute Qualifiers: Leukocytosis type: unspecified Qualified Code(s): D72.829 - Elevated white blood cell count, unspecified (9) End stage COPD Priority: Secondary Status: Acute - Discharge Medications Prescriptions: OxyCODONE/APAP 10/325 [Percocet 10/325 MG] 1 each PO Q6HR PRN #20 tablet PRN Reason: Pain Amoxicillin/Clavulanate [Augmentin] 875 mg PO BIDWM #12 tablet Clopidogrel [Plavix] 75 mg PO DAILY #30 tablet LORazepam [Ativan] 0.25 mg PO Q4H PRN #20 tablet PRN Reason: Anxiety PredniSONE 5 mg PO DAILY #50 tablet Home Medications: Oxygen 4 l NS CONT 10/26/14 [History] Duloxetine [Cymbalta] 30 mg PO DAILY 08/12/15 [History] Albuterol Neb [Proventil Neb] 2.5 mg IH Q6H PRN 03/27/16 [History] Albuterol Sulfate [Albuterol Inhaler] 2 puff IH Q4H PRN 03/27/16 [History] Pregabalin [Lyrica] 50 mg PO DAILY 03/27/16 [History] Tiotropium [Spiriva] 18 mcg IH DAILY 03/27/16 [History] Docusate [Colace] 100 mg PO BID #60 capsule 03/30/16 [Rx] Sennosides [Senna] 17.2 mg PO BID #60 tablet 03/30/16 [Rx] Amoxicillin/Clavulanate [Augmentin] 875 mg PO BIDWM #12 tablet 05/05/16 [Rx] Clopidogrel [Plavix] 75 mg PO DAILY #30 tablet 05/05/16 [Rx] LORazepam [Ativan] 0.25 mg PO Q4H PRN #20 tablet 05/05/16 [Rx] OxyCODONE/APAP 10/325 [Percocet 10/325 MG] 1 each PO Q6HR PRN #20 tablet [Rx] PredniSONE 5 mg PO DAILY #50 tablet 05/05/16 [Rx] Allergies/Adverse Reactions: Allergies fluoxetine Allergy (Verified 05/03/16 12:09) Swelling of Lip/Tongue/Throat Sulfa (Sulfonamide Antibiotics) Allergy (Verified 05/03/16 08:17) Swelling of Lip/Tongue/Throat Hives Procedures/tests Complete & Pending: Procedures Performed prior 72 hours Category Date Time Status CL Peripheral Angiography [CL] Routine Lna 05/03/16 17:01 Completed Date of admission: 05/03/16 11:21 Primary care physician: Caridad Rosales Consults: 05/03/16 11:36 Consult to Machine Stripper [CONS] Routine Reason for SW Consult: HH, Pallative diagnosis, home o2 - Patient Status Disposition: Hospice - Home Condition: Fair Overall status at discharge: patient is progressing back to baseline - Discharge Instructions Follow Up With: Caridad Rosales MD [Primary Care Provider] - 05/13/16 1:45 pm Ever Sorensen MD [Partnered Physician] - (follow up with Dr Edu roldan) Additional Instructions: Follow with primary care physician in 1 week and hospice services. May follow with vascular surgery only as needed. Continue Plavix, taper prednisone and keep on 5 mg permanently. Complete 6 days of Augmentin - Diet and Activity Activity: increase activity as tolerated, wear oxygen at all times Diet: low fat, low cholesterol Hospital course: Ms. Quiroga is a 70 year old female with past medical history significant for end stage COPD oxygen dependent, chronic tobacco abuse and peripheral vascular disease who presented to the hospital for bilateral leg pain. She reported bilateral leg pain worse over the last 1 week described as sharp and burning, worse with ambulation and improved with oral pain medication however she does not get complete relief with her regular Vicodin and Percocet. Reported some associated numbness in both feet. She presented to the emergency department and she had REGLA which showed right leg of 0.21 and left leg of 0.41. She was then discharged home however her lower extremity pain was unbearable so she returned to the hospital. The patient was evaluated by the vascular surgery service and she underwent an abdominal aortogram with bilateral runoff, right external iliac artery [employer]OTH [employer] HAND balloon angioplasty and right SFA [employer] HAND balloon angioplasty on 05/04/16. Plavix gas continued . Right foot became warmer and less painful. The patient was continued on azithromycin and switched to rocephin for possible acute bacterial bronchitis. Prednisone was decreased to 20 mg daily . The patient is a DNR cc arrest and will be discharged to continue hospice at home. Time spent discussing smoking cessation with patient: 3 to 10 minutes - Time Spent with Patient Total time spent providing and/or coordinating discharge services: Greater than 30 minutes (40 minutes) - Constitutional Vitals: Temp Pulse Resp BP Pulse Ox 98.8 F 100 18 107/53 91 L 05/05/16 16:05 05/05/16 16:05 05/05/16 16:05 05/05/16 16:05 05/05/16 16:05 General appearance: Present: cachectic, A&O X 3 - Head Head exam: Present: atraumatic, normocephalic - Eye Eye exam: Present: PERRL, conjuntiva pink, sclera anicteric Pupils: Present: PERRL - Neck Neck exam general surgery: Present: supple, trachea midline. Absent: lymphadenopathy - Respiratory Respiratory exam: Present: decreased breath sounds, CTAB. Absent: accessory muscle use, rales, rhonchi, wheezes - Cardiovascular Cardiovascular exam: Present: RRR, +S1, +S2. Absent: diastolic murmur, gallop, rubs, systolic murmur - GI/Abdominal GI/Abdominal exam: Present: normal bowel sounds, soft, no peritoneal signs. Absent: distended, tenderness - Extremities Exam Extremities exam: Present: warm, radial pulses palpable and symetrical. Absent : calf tenderness, pedal edema Additional comments: pedal pulses not felt, feet are warm, left groin wound without signs of hematoma. - Neurological Exam Neurological exam: Present: CN II-XII intact, oriented X3, no focal deficits. Absent: pronater drift, facial droop, speech deficit - Skin Skin exam: Present: dry, intact
--- NOTE | 2016-05-05 16:39 | Physician Discharge Referral ---
Home Health/Hosp Referral Info Transfer to: Home Health Provider in Charge Post Discharge: PCP - Diagnosis (1) Claudication Status: Acute (2) Acute bronchitis Status: Acute (3) Severe peripheral arterial disease Status: Acute (4) History of lung cancer Status: Chronic (5) Severe chronic obstructive pulmonary disease Status: Chronic (6) Severe protein-calorie malnutrition Status: Chronic (7) Tobacco abuse Status: Chronic (8) Leukocytosis Status: Acute (9) End stage COPD Status: Acute - Respiratory Orders Oxygen / L per min (3 Lt) Smoking Cessation: Smoking cessation has been advised. For more information, call the [place] Tobacco Quit Line at 7-984-EJLG-NOW. - Dressing/Wound Care Type of Dressing/Treatments w/Frequency: DNR cc arrest - Diet/Nutrition Diet/Nutrition Orders: Cardiac - Activity Activity Orders: Ambulate, Walker - Services Needed Following services are medically necessary services: Home Health Aide Home Care Orders: Follow with primary care physician in 1 week and hospice services. May follow with vascular surgery only as needed. Continue Plavix, taper prednisone and keep on 5 mg permanently. Complete 6 days of Augmentin - Transfer Medications Prescriptions: OxyCODONE/APAP 10/325 [Percocet 10/325 MG] 1 each PO Q6HR PRN #20 tablet PRN Reason: Pain Amoxicillin/Clavulanate [Augmentin] 875 mg PO BIDWM #12 tablet Clopidogrel [Plavix] 75 mg PO DAILY #30 tablet LORazepam [Ativan] 0.25 mg PO Q4H PRN #20 tablet PRN Reason: Anxiety PredniSONE 5 mg PO DAILY #50 tablet Home Medications: Oxygen 4 l NS CONT 10/26/14 [History] Duloxetine [Cymbalta] 30 mg PO DAILY 08/12/15 [History] Albuterol Neb [Proventil Neb] 2.5 mg IH Q6H PRN 03/27/16 [History] Albuterol Sulfate [Albuterol Inhaler] 2 puff IH Q4H PRN 03/27/16 [History] Pregabalin [Lyrica] 50 mg PO DAILY 03/27/16 [History] Tiotropium [Spiriva] 18 mcg IH DAILY 03/27/16 [History] Docusate [Colace] 100 mg PO BID #60 capsule 03/30/16 [Rx] Sennosides [Senna] 17.2 mg PO BID #60 tablet 03/30/16 [Rx] Amoxicillin/Clavulanate [Augmentin] 875 mg PO BIDWM #12 tablet 05/05/16 [Rx] Clopidogrel [Plavix] 75 mg PO DAILY #30 tablet 05/05/16 [Rx] LORazepam [Ativan] 0.25 mg PO Q4H PRN #20 tablet 05/05/16 [Rx] OxyCODONE/APAP 10/325 [Percocet 10/325 MG] 1 each PO Q6HR PRN #20 tablet [Rx] PredniSONE 5 mg PO DAILY #50 tablet 05/05/16 [Rx] Allergies/Adverse Reactions: Allergies fluoxetine Allergy (Verified 05/03/16 12:09) Swelling of Lip/Tongue/Throat Sulfa (Sulfonamide Antibiotics) Allergy (Verified 05/03/16 08:17) Swelling of Lip/Tongue/Throat Hives Certification: Further, I certify that my clinical findings support that this patient is homebound (i.e. absences from home require considerable and taxing effort and are for medical reasons or orthodoxy services or infrequently or short duration when for other reasons) because: Homebound Reason: Patient requires assistance of a person or device to safely leave home Attestation: My signature below is to certify that this patient is under my care and that I, or nurse practitioner, or a physician's ict sales assistant working with me, has a face-to -face encounter with this patient.
== END 2016-05-05 17:55 | disposition hospice, home (50) | DRG 252 ==
LOC: EMEROO 08:06 → 3BNU 08:06 → SUATTDRO 11:21 → 2NNU 05-04 14:28 → 3ANU 05-05 12:15
PROVIDERS: ADMIT Nurse Practitioner Family; ATTEND Internal Medicine

== ENCOUNTER 2016-07-13 19:07 | Observation (INO) ==
[2016-07-13] MEDS ORDERED: methylPREDNISolone 125 MG/2 ML VIAL IV ONE (19:40)
[2016-07-13] MEDS ORDERED: Ipratropium/Albuterol Neb 3 ML IH ONE (19:40)
--- NOTE | 2016-07-13 19:49 | Emergency Department Note ---
Disposition Clinical Impression: Acute exacerbation of chronic obstructive airways disease, Hypokalemia due to inadequate potassium intake Disposition: Admitted As Inpatient Condition: Fair Referrals: Caridad Rosales MD [Primary Care Provider] - Forms: ED Satisfaction Letter SOB HPI - General Chief Complaint: ED Shortness of Breath/Dyspnea Stated Complaint: anxiety/chest pain/REYNALDO Time Seen by Provider: 07/13/16 19:13 Source: patient, EMS Limitations: no limitations Nursing Notes Reviewed: Yes Vital Signs Reviewed: Yes - History of Present Illness Pt Subjective Complaint: shortness of breath, cough Onset (ago): day(s) (3) Context: recent illness Severity: moderate Consistency/Duration: intermittent Improves with: oxygen, rest, bronchodilators Worsens with: exertion, coughing Known history of: COPD Associated symptoms: Reports: wheezing, sputum production Treatment prior to arrival: oxygen, bronchodilator Cough present: Yes Cough Description: Involuntary Cough Frequency: Intermittent Sputum production: Yes Sputum Amount: Small - Related Data Home oxygen amount: 2 liters Home Medications Medication Instructions Recorded Confirmed Oxygen 4 l NS CONT 10/26/14 05/03/16 Duloxetine [Cymbalta] 30 mg PO DAILY 08/12/15 05/03/16 Albuterol Neb [Proventil Neb] 2.5 mg IH Q6H PRN 03/27/16 05/03/16 Albuterol Sulfate [Albuterol 2 puff IH Q4H PRN 03/27/16 05/03/16 Inhaler] Pregabalin [Lyrica] 50 mg PO DAILY 03/27/16 05/03/16 Tiotropium [Spiriva] 18 mcg IH DAILY 03/27/16 05/03/16 Previous Rx's Medication Instructions Recorded Docusate [Colace] 100 mg PO BID #60 capsule 03/30/16 Sennosides [Senna] 17.2 mg PO BID #60 tablet 03/30/16 Amoxicillin/Clavulanate [Augmentin] 875 mg PO BIDWM #12 tablet 05/05/16 Clopidogrel [Plavix] 75 mg PO DAILY #30 tablet 05/05/16 LORazepam [Ativan] 0.25 mg PO Q4H PRN #20 tablet 05/05/16 OxyCODONE/APAP 10/325 [Percocet 1 each PO Q6HR PRN #20 tablet 05/05/16 10/325 MG] PredniSONE 5 mg PO DAILY #50 tablet 05/05/16 Pregabalin [Lyrica] 25 mg PO BID #20 capsule 05/17/16 Allergies Allergy/AdvReac Type Severity Reaction Status Date / Time fluoxetine Allergy Swelling Verified 05/03/16 12:09 of Lip/Tongue/Throat Sulfa (Sulfonamide Allergy Swelling Verified 05/03/16 08:17 Antibiotics) of Lip/Tongue/Throat All systems ED: reviewed and negative except as stated. Constitutional: Reports: weakness. 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 - Social History Smoking Status: Current every day smoker Smokeless Tobacco Status: No Alcohol use: Reports: none Drug use: Reports: none Physical Exam - General Limitations: no limitations General appearance: alert, in no apparent distress, cachectic - Head Head exam: atraumatic, normocephalic, normal inspection - Eye Eye exam: Present: normal appearance, PERRL, EOMI - Expanded Eye Exam Pupils: Left: reactive - ENT ENT exam: normal exam, normal oropharynx, mucous membranes moist - Expanded ENT Exam External ear exam: Present: normal external inspection Mouth exam: Present: normal external inspection Teeth exam: Present: normal inspection Throat exam: Present: normal inspection - Neck Neck exam: Present: normal inspection, full ROM, trachea midline - Chest Chest inspection: Present: normal inspection, symmetric chest wall rise - Respiratory Respiratory exam: Present: wheezes, prolonged expiratory phase (scattered rhonchi productive cough) - Cardiovascular Cardiovascular exam: Present: regular rate, normal rhythm, normal heart sounds - Abdominal Exam Abdominal exam: Present: soft, Non-Tender. Absent: tenderness, distention, guarding, rebound, rigidity - Extremities Exam Extremities exam: Present: normal inspection, full ROM. Absent: tenderness, pedal edema - Expanded Upper Extremity Exam Shoulder exam: Present: normal inspection, full ROM Arm exam: Present: normal inspection, full ROM Elbow exam: Present: normal inspection, full ROM Forearm/Wrist exam: Present: normal inspection, full ROM Hand exam: Present: normal inspection, full ROM Vascular exam: Normal: capillary refill, radial pulse - Expanded Lower Extremity Exam Hip/Pelvis exam: Present: normal inspection, full ROM Upper leg exam: Present: normal inspection, full ROM Knee exam: Present: normal inspection, full ROM Lower leg exam: Present: normal inspection, full ROM Ankle exam: Present: normal inspection, full ROM Foot/toe exam: Present: normal inspection, full ROM Neurovascular/Tendon exam: Absent: motor deficit, sensory deficit, tendon deficit - Back Exam Back exam: Present: normal inspection, full ROM. Absent: tenderness - Neurological Exam Neurological exam: Present: alert, oriented X3 - Expanded Neurological Exam Patient oriented to: Present: person, place, time Coma Scale Eye Opening: Spontaneous Coma Scale Motor Response: Obeys Commands Coma Scale Verbal Response: Oriented Coma Scale Total: 15 - Psychiatric Psychiatric exam: Present: normal affect, normal mood - Skin Skin exam: Present: warm, dry, intact, normal color Course Vital Signs Temperature 97.5 F L 07/13/16 19:10 Pulse Rate 101 07/13/16 19:10 Respiratory Rate 20 07/13/16 19:10 Blood Pressure 105/74 07/13/16 19:10 O2 Sat by Pulse Oximetry 100 07/13/16 19:10 Temperature 97.5 F L 07/13/16 19:10 Pulse Rate 99 07/13/16 20:17 Respiratory Rate 20 07/13/16 20:17 Blood Pressure 93/66 07/13/16 20:17 O2 Sat by Pulse Oximetry 100 07/13/16 20:17 Oxygen Delivery Oxygen Delivery Nasal Cannula Shortness of Breath/Dyspnea - Differential Diagnosis Likely: acute exacerbation of chronic obstructive airways disease, congestive heart failure, pneumonia, pneumothorax, arrhythmia - Medical Records Medical records reviewed: Yes I reviewed the patient's medical records. - Lab Data Lab results reviewed: Yes I reviewed the patient's lab results. Result diagrams: 07/13/16 19:58 07/13/16 19:58 Lab Results 07/13/16 07/13/16 07/13/16 Range/Units 19:56 19:58 19:58 WBC 12.8 H (4.3-11.1) K/mcL RBC 4.05 (3.82-4.97) M/mcL Hgb 12.6 (11.5-15.4) g/dL Hct 38.9 (35.3-44.9) % MCV 96.0 (83.0-100.0) fL MCH 31.1 (28.0-33.3) pg MCHC 32.4 (31.6-35.5) g/dL RDW 13.1 (11.5-14.5) % Plt Count 283 (140-400) K/mcL MPV 9.6 (9.4-12.4) fL Immature Gran % 1.6 (0-4) % Seg Neutrophils % 90.2 % Lymphocytes % 5.0 % Monocytes % 2.6 % Eosinophils % 0.3 % Basophils % 0.3 % Neutrophils # 11.6 H (1.6-8.9) K/mcL Lymphocytes # 0.6 (0.6-4.6) K/mcL Monocytes # 0.3 (0.0-1.3) K/mcL Eosinophils # 0.0 (0.0-0.6) K/mcL Basophils # 0.0 (0.0-0.2) K/mcL PT (9.4-12.1) Seconds INR APTT (26.0-36.0) Seconds ABG pH 7.44 (7.32-7.45) pH Units ABG pCO2 46 H (35-45) mmHg ABG pO2 180 H (85-104) mmHg ABG HCO3 31.2 H (21-27) mEQ/L ABG Total CO2 32.6 H (20-26) mEq/L ABG O2 Saturation 100 H (95-98) % ABG Base Excess 6.1 H (-2.0 to 3.0) mEq/L Blood Gas Modality [place] Inspired O2 36 % Sodium 139 (136-145) mEq/L Potassium 3.2 L (3.5-4.5) mEq/L Chloride 104 (98-109) mEq/L Carbon Dioxide 26 (19-29) mEq/L BUN 11 (7-20) mg/dL Creatinine 0.52 L (0.57-1.11) mg/dL Est GFR ( Amer) > 60 (> 60) Est GFR (Non-Af Amer) > 60 (> 60) BUN/Creatinine Ratio 21 (6-26) Glucose 153 H (70-99) mg/dL Calculated Osmolality 290 (280-300) Calcium 8.6 (8.6-10.8) mg/dL Magnesium (1.6-2.6) mg/dL Troponin I (0-0.03) ng/mL B-Natriuretic Peptide (0-100) pg/mL 07/13/16 07/13/16 07/13/16 Range/Units 19:58 19:58 19:58 WBC (4.3-11.1) K/mcL RBC (3.82-4.97) M/mcL Hgb (11.5-15.4) g/dL Hct (35.3-44.9) % MCV (83.0-100.0) fL MCH (28.0-33.3) pg MCHC (31.6-35.5) g/dL RDW (11.5-14.5) % Plt Count (140-400) K/mcL MPV (9.4-12.4) fL Immature Gran % (0-4) % Seg Neutrophils % % Lymphocytes % % Monocytes % % Eosinophils % % Basophils % % Neutrophils # (1.6-8.9) K/mcL Lymphocytes # (0.6-4.6) K/mcL Monocytes # (0.0-1.3) K/mcL Eosinophils # (0.0-0.6) K/mcL Basophils # (0.0-0.2) K/mcL PT 9.1 L (9.4-12.1) Seconds INR 0.9 APTT 25.1 L (26.0-36.0) Seconds ABG pH (7.32-7.45) pH Units ABG pCO2 (35-45) mmHg ABG pO2 (85-104) mmHg ABG HCO3 (21-27) mEQ/L ABG Total CO2 (20-26) mEq/L ABG O2 Saturation (95-98) % ABG Base Excess (-2.0 to 3.0) mEq/L Blood Gas Modality Inspired O2 % Sodium (136-145) mEq/L Potassium (3.5-4.5) mEq/L Chloride (98-109) mEq/L Carbon Dioxide (19-29) mEq/L BUN (7-20) mg/dL Creatinine (0.57-1.11) mg/dL Est GFR ( Amer) (> 60) Est GFR (Non-Af Amer) (> 60) BUN/Creatinine Ratio (6-26) Glucose (70-99) mg/dL Calculated Osmolality (280-300) Calcium (8.6-10.8) mg/dL Magnesium (1.6-2.6) mg/dL Troponin I 0.00 (0-0.03) ng/mL B-Natriuretic Peptide 121 H (0-100) pg/mL 07/13/16 Range/Units 20:02 WBC (4.3-11.1) K/mcL RBC (3.82-4.97) M/mcL Hgb (11.5-15.4) g/dL Hct (35.3-44.9) % MCV (83.0-100.0) fL MCH (28.0-33.3) pg MCHC (31.6-35.5) g/dL RDW (11.5-14.5) % Plt Count (140-400) K/mcL MPV (9.4-12.4) fL Immature Gran % (0-4) % Seg Neutrophils % % Lymphocytes % % Monocytes % % Eosinophils % % Basophils % % Neutrophils # (1.6-8.9) K/mcL Lymphocytes # (0.6-4.6) K/mcL Monocytes # (0.0-1.3) K/mcL Eosinophils # (0.0-0.6) K/mcL Basophils # (0.0-0.2) K/mcL PT (9.4-12.1) Seconds INR APTT (26.0-36.0) Seconds ABG pH (7.32-7.45) pH Units ABG pCO2 (35-45) mmHg ABG pO2 (85-104) mmHg ABG HCO3 (21-27) mEQ/L ABG Total CO2 (20-26) mEq/L ABG O2 Saturation (95-98) % ABG Base Excess (-2.0 to 3.0) mEq/L Blood Gas Modality Inspired O2 % Sodium (136-145) mEq/L Potassium (3.5-4.5) mEq/L Chloride (98-109) mEq/L Carbon Dioxide (19-29) mEq/L BUN (7-20) mg/dL Creatinine (0.57-1.11) mg/dL Est GFR ( Amer) (> 60) Est GFR (Non-Af Amer) (> 60) BUN/Creatinine Ratio (6-26) Glucose (70-99) mg/dL Calculated Osmolality (280-300) Calcium (8.6-10.8) mg/dL Magnesium 1.6 (1.6-2.6) mg/dL Troponin I (0-0.03) ng/mL B-Natriuretic Peptide (0-100) pg/mL - Radiology Data Radiology results reviewed: Yes I reviewed the patient's radiology results. - EKG Data EKG attestation: Yes I reviewed and interpreted this EKG. EKG shows normal: Reports: sinus rhythm Rate: Reports: normal (99) Rhythm: Reports: NSR [place]/QRS: Reports: normal Interpretation: Reports: no acute changes
[2016-07-13 20:06] LABS: Basophils % 0.3 %; Eosinophils % 0.3 %; Hematocrit 38.9 % (35.3-44.9); Hemoglobin 12.6 g/dL (11.5-15.4); Immature Granulocytes % 1.6 % (0-4); Lymphocytes # 0.6 K/mcL (0.6-4.6); Mean Corpuscular HGB Conc 32.4 g/dL (31.6-35.5); Mean Corpuscular Hemoglobin 31.1 pg (28.0-33.3); Mean Platelet Volume 9.6 fL (9.4-12.4); Monocytes # 0.3 K/mcL (0.0-1.3); Monocytes % 2.6 %; Neutrophils # 11.6 K/mcL (1.6-8.9); Platelet Count 283 K/mcL (140-400); Red Blood Count 4.05 M/mcL (3.82-4.97); Red Cell Distribution Width 13.1 % (11.5-14.5); Segmented Neutrophils % 90.2 %
[2016-07-13 20:07] LABS: ABG Base Excess 6.1 mEq/L (-2.0 to 3.0); ABG HCO3 31.2 mEQ/L (21-27); ABG Oxygen Saturation 100 % (95-98); ABG PCO2 46 mmHg (35-45); ABG PH 7.44 pH Units (7.32-7.45); ABG PO2 180 mmHg (85-104); ABG TCO2 32.6 mEq/L (20-26); Blood Gas FiO2 36 %
[2016-07-13 20:13] LABS: INR 0.9; Prothrombin Time 9.1 Seconds (9.4-12.1)
[2016-07-13 20:15] LABS: Activated Partial Thrombo Time 25.1 Seconds (26.0-36.0)
[2016-07-13] MEDS ORDERED: Levofloxacin 750 MG/150 ML 750 MG/150 ML BAG IVPB ONE (20:18)
[2016-07-13] MEDS ORDERED: 0.9 % Sodium Chloride 500 ML IVC ONE (20:20)
[2016-07-13 20:21] LABS: BUN/Creatinine Ratio 21 (6-26); Blood Urea Nitrogen 11 mg/dL (7-20); Calcium 8.6 mg/dL (8.6-10.8); Carbon Dioxide 26 mEq/L (19-29); Chloride 104 mEq/L (98-109); Glucose 153 mg/dL (70-99); Osmolality,Calculated 290 (280-300); Potassium 3.2 mEq/L (3.5-4.5); Sodium 139 mEq/L (136-145); eGFR For African Americans > 60 (> 60); eGFR For Non-African Americans > 60 (> 60)
[2016-07-13] MEDS ORDERED: *HR* HYDROcodone/Acet 5/325 mg TABLET PO ONE (21:25)
[2016-07-13] MEDS ORDERED: Naloxone 0.4 MG/ML INJ IVP PRN (22:33)
[2016-07-13] MEDS ORDERED: Albuterol 2.5 MG/3 ML NEBULIZER IH PRN (22:36)
--- NOTE | 2016-07-13 22:42 | Internal Med History&Physical ---
Date of Encounter: 07/13/16 Time of Encounter: 22:20 Assessment and Plan (1) Acute exacerbation of chronic obstructive airways disease Current visit: Yes Status: Acute patient with known advanced COPD with associated chronic respiratory failure presenting with signs and symptoms concerning for COPD exacerbation we will admit for duo nebs, steroids and azithromycin, supportive oxygen, continuous pulse ox monitoring (2) Hypokalemia due to inadequate potassium intake Current visit: Yes Status: Acute we will replace and follow BMP (3) GERD (gastroesophageal reflux disease) Current visit: Yes Status: Chronic continue home PPI Qualifiers: Esophagitis presence: without esophagitis Qualified Code(s): K21.9 - Gastro -esophageal reflux disease without esophagitis (4) Hypertension Current visit: Yes Status: Chronic we will need to verify home medications in AM and resume them, will monitor BP Qualifiers: Hypertension type: essential hypertension Qualified Code(s): I10 - Essential (primary) hypertension (5) Anxiety about health Current visit: Yes Status: Chronic continue home psych medications Internal Medicine - H&P: HPI Chief complaint: shortness of breath Admitted From: Emergency Dept Plans for Post Hospital Care: Home History of present illness: Ms. Quiroga is a 70 year old female with a history of advanced COPD with chronic respiratory failure requiring home oxygen at 2-3L/min comes in with worsening shortness of breath. She was in her usual state of health until the above began about 3 days prior to presentation. She reports that she has been having increasing sputum production with associated greenish coloration of the sputum. She has also been coughing more than usual and has been dyspneic requiring more oxygen flow than her baseline. She also reports dyspnea on exertion and reduced exercise tolerance since. She has been using her inhaler several times daily and also at night with minimal response. She came in today for worsening symptoms for further evaluation. She denies sick contacts, recent illness, fever or chills, noo nausea or vomiting and her appetite is normal. Past Med Surg Social Fam HX - Past Medical History Medical history: arthritis, asthma, cancer, COPD, GERD, hyperlipidemia, hypertension Psychiatric history: anxiety, depression - Past Surgical History Surgical History: hip replacement, other - Social History Smoking Status: Current every day smoker Smokeless Tobacco Status: No Alcohol use: none Drug use: none - Family History Mother Living Status: Hx Family Cancer: Yes (Brain) Father Living Status: Hx Family Cancer: Yes (Lung) Internal Medicine - H&P: Meds Oxygen 4 l NS CONT 10/26/14 [History] Albuterol Sulfate [Albuterol Inhaler] 2 puff IH Q4H PRN 03/27/16 [History] Docusate [Colace] 100 mg PO BID #60 capsule 03/30/16 [Rx] Clopidogrel [Plavix] 75 mg PO DAILY #30 tablet 05/05/16 [Rx] CarBAMazepine [Tegretol] 200 mg PO BID 07/13/16 [History] Citalopram [CeleXA] 20 mg PO DAILY 07/13/16 [History] Dexamethasone [Decadron] 4 mg PO TID 07/13/16 [History] Esomeprazole Magnesium [Nexium] 40 mg PO DAILY 07/13/16 [History] Furosemide [Lasix] 40 mg PO DAILY 07/13/16 [History] HYDROcodone/Acet 10/325 mg [[place] 10-325 mg] 1 tab PO Q4HR PRN 07/13/16 [History ] LORazepam [Ativan] 0.5 mg PO Q4H PRN 07/13/16 [History] LORazepam [Ativan] 1 mg PO TID 07/13/16 [History] PredniSONE 5 mg PO DAILY 07/13/16 [History] Promethazine [Phenergan] 25 mg PO Q6HR PRN 07/13/16 [History] Allergies fluoxetine Allergy (Verified 05/03/16 12:09) Swelling of Lip/Tongue/Throat Sulfa (Sulfonamide Antibiotics) Allergy (Verified 05/03/16 08:17) Swelling of Lip/Tongue/Throat Hives All Systems PM: A 10-system review of systems was performed and is negative for pertinent findings except as documented above in the HPI. - Constitutional Vitals: Temp Pulse Resp BP Pulse Ox 97.8 F 87 20 93/65 95 07/13/16 22:25 07/13/16 22:25 07/13/16 22:25 07/13/16 22:25 07/13/16 22:25 PHYSICAL EXAMINATION: GENERAL: Adult female, lying in bed, cachectic looking, Alert, not in acute distress, obvious pain or discomfort, HEENT: NC/AT, EOMI, PERRLA, anicteric sclera, normal conjunctiva, supple, clear nares, moist mucous membranes, clear oropharynx, central uvula RESP: mild resp distress, end expiratory wheeze bilaterally, diminished AE bilaterally, No crackles CARDIO: Normal hearts sounds; S1 and 2, RRR with no murmurs or rubs, no JVD, no ankle edema GI: Soft, full, no tenderness, no organomegaly felt, normal bowel sounds heard MUSCULOSKELETAL: grossly normal movements bilaterally, no deformities noted, no calf tenderness EXTREMITIES: No clubbing, cyanosis or edema, NEUROLOGIC: CN 2-12 intact grossly. No motor/sensory deficit appreciated, PSYCHIATRY: AAO x 3. Mood is fair, SKIN: multiple areas of ecchymoses on the upper extremities Internal Med - H&P Results - Labs CBC & Chem 7: 07/14/16 03:34 07/14/16 03:34 - Diagnostic Studies Chest x-ray Status: image reviewed by me
[2016-07-13] MEDS: carBAMazepine 200 MG TABLET PO SCH (23:53)
[2016-07-13] MEDS: Azithromycin 250 MG TABLET PO SCH (23:54)
[2016-07-14] MEDS: Ipratropium Neb 0.5 MG NEBULIZER IH SCH ×7 (00:35→23:46)
[2016-07-14] MEDS: Albuterol 2.5 MG/3 ML NEBULIZER IH SCH ×7 (00:35→23:46)
[2016-07-14] MEDS: *HR* HYDROcodone/Acet 10/325 mg TABLET PO PRN ×6 (01:55→22:24)
[2016-07-14] MEDS: Morphine Oral CONC 5 MG/0.25 ML ORAL.SYG PO PRN ×3 (03:10→12:36)
[2016-07-14 04:23] LABS: Basophils % 0.3 %; Hematocrit 36.9 % (35.3-44.9); Hemoglobin 11.7 g/dL (11.5-15.4); Immature Granulocytes % 2.4 % (0-4); Lymphocytes # 0.4 K/mcL (0.6-4.6); Lymphocytes % 2.8 %; Mean Corpuscular HGB Conc 31.7 g/dL (31.6-35.5); Mean Corpuscular Hemoglobin 31.1 pg (28.0-33.3); Mean Corpuscular Volume 98.1 fL (83.0-100.0); Mean Platelet Volume 9.8 fL (9.4-12.4); Monocytes # 0.3 K/mcL (0.0-1.3); Neutrophils # 11.7 K/mcL (1.6-8.9); Platelet Count 263 K/mcL (140-400); Red Blood Count 3.76 M/mcL (3.82-4.97); Red Cell Distribution Width 13.3 % (11.5-14.5); Segmented Neutrophils % 92.5 %
[2016-07-14 04:36] LABS: BUN/Creatinine Ratio 25 (6-26); Blood Urea Nitrogen 15 mg/dL (7-20); Calcium 8.2 mg/dL (8.6-10.8); Carbon Dioxide 26 mEq/L (19-29); Chloride 110 mEq/L (98-109); Glucose 79 mg/dL (70-99); Magnesium 1.6 mg/dL (1.6-2.6); Osmolality,Calculated 294 (280-300); Phosphorous 2.9 mg/dL (2.3-4.7); Potassium 4.2 mEq/L (3.5-4.5); Sodium 142 mEq/L (136-145); eGFR For African Americans > 60 (> 60); eGFR For Non-African Americans > 60 (> 60)
[2016-07-14] MEDS: *HR* LORazepam 1 MG TABLET PO PRN ×3 (04:47→20:52)
[2016-07-14] MEDS: Azithromycin 250 MG TABLET PO SCH (08:04)
[2016-07-14] MEDS: carBAMazepine 200 MG TABLET PO SCH ×3 (08:04→20:52)
[2016-07-14] MEDS: Furosemide 40 MG TABLET PO SCH (08:04)
[2016-07-14] MEDS: predniSONE 20 MG TABLET PO SCH (08:05)
[2016-07-14 13:19] LABS: Bilirubin,Urine Negative (Negative); Blood,Urine Trace (Negative); Clarity,Urine Clear (Clear); Color,Urine Yellow (Yellow); Glucose,Urine (UA) Normal (Normal); Ketones,Urine Negative (Negative); Leukocyte Esterase,Urine Negative (Negative); Nitrite,Urine Negative (Negative); Protein,Urine Negative (Neg-Trace); Specific Gravity,Urine 1.011 (1.010-1.025); Urobilinogen,Urine Normal (Normal)
[2016-07-14 13:21] LABS: Bacteria,Urine None Seen per hpf (None-Few); Hyaline Casts,Urine None Seen per lpf (None-Few); Squamous Epithelial Cell,Urine Few per lpf (None-Few); WBC,Urine 0-3 per hpf (0-3)
--- NOTE | 2016-07-14 17:16 | Electrocardiograph Report ---
[address] [address] Test Date: 2016-07-13 Pat Name: Virginia Quiroga Department: 105 Room: 3B46 Gender: F Lpn Care Manager: ZECHARIAH : 1945 Requested By: Van Roque Order Number: [id number] Reading MD: James Franco Measurements Intervals [place] Rate: 99 P: 62 RI: 139 QRS: 40 QRSD: 82 T: 50 QT: 345 QTc: 401 Interpretive Statements SINUS RHYTHM Electronically Signed On 07-14-2016 17:15:23 EDT by James Franco
[2016-07-14] MEDS: *HR* Heparin 5,000 UNIT/ML VIAL SQ SCH (18:15)
[2016-07-14] MEDS: Nicotine 14 MG PATCH.TD24 TD SCH (19:58)
--- NOTE | 2016-07-14 19:58 | Internal Med Progress Note ---
Date of Encounter: 07/14/16 Time of Encounter: 10:00 - Assessment and plan (1) Acute exacerbation of chronic obstructive airways disease Current Visit: Yes Status: Acute Assessment and plan: We will continue oxygen therapy, continue antibiotic, steroid, bronchodilator. Improved the shortness of breath after treatment. (2) DVT prophylaxis Current Visit: No Status: Acute Assessment and plan: Heparin subcutaneously (3) Hypertension Current Visit: No Status: Acute Assessment and plan: Continue home medication Qualifiers: Hypertension type: essential hypertension Qualified Code(s): I10 - Essential (primary) hypertension (4) Anxiety about health Current Visit: Yes Status: Chronic Assessment and plan: Continue home medication - Time Spent With Patient 25 - 35 minutes - Subjective Interval history: Patient is a 70-year-old female admitted for COPD exacerbation. Past medical history is significant for COPD on home oxygen, hypertension, hyperlipidemia. Patient was seen and examined. Shortness of breath has improved after treatment. Vitals are stable. Continue steroid, bronchodilator. Closely monitor patient. - Constitutional Vitals: Temp Pulse Resp BP Pulse Ox 97.9 F 99 16 101/66 97 07/14/16 18:49 07/14/16 18:49 07/14/16 18:49 07/14/16 18:49 07/14/16 18:49 General appearance: Present: cachectic, A&O X 3, answers questions appropriately - Head Head exam: Present: atraumatic, normocephalic - Eye Eye exam: Present: PERRL, conjuntiva pink, sclera anicteric Pupils: Present: PERRL - Neck Neck exam general surgery: Present: supple, trachea midline. Absent: lymphadenopathy - Respiratory Respiratory exam: Present: decreased breath sounds (B/L), CTAB. Absent: accessory muscle use, rales, rhonchi, wheezes - Cardiovascular Cardiovascular exam: Present: RRR, +S1, +S2. Absent: diastolic murmur, gallop, rubs, systolic murmur - GI/Abdominal GI/Abdominal exam: Present: normal bowel sounds, soft, no peritoneal signs. Absent: distended, tenderness - Extremities Exam Extremities exam: Present: warm, radial pulses palpable and symetrical. Absent : calf tenderness, cyanotic, pedal edema - Neurological Exam Neurological exam: Present: CN II-XII intact, oriented X3, no focal deficits. Absent: pronater drift, facial droop, speech deficit - Skin Skin exam: Present: dry, intact Internal Medicine: Result - Labs CBC & Chem 7: 07/14/16 03:34 07/14/16 03:34 Labs: Short CBC 07/14/16 Range/Units 03:34 WBC 12.7 H (4.3-11.1) K/mcL Hgb 11.7 (11.5-15.4) g/dL Hct 36.9 (35.3-44.9) % Plt Count 263 (140-400) K/mcL Neutrophils # 11.7 H (1.6-8.9) K/mcL BMP 07/14/16 03:34 Sodium 142 Potassium 4.2 D Chloride 110 H Carbon Dioxide 26 BUN 15 Creatinine 0.60 Glucose 79 Calcium 8.2 L Urine 07/14/16 Range/Units 13:10 Urine Color Yellow (Yellow) Urine Clarity Clear (Clear) Urine pH 7.0 (5.0-8.0) pH Units Ur Specific [place] 1.011 (1.010-1.025) Urine Protein Negative (Neg-Trace) mg/dL Urine Glucose (UA) Normal (Normal) mg/dL - ABG Interpretation ABG results: ABG ABG pH 7.44 pH Units (7.32-7.45) 07/13/16 19:56 ABG pCO2 46 mmHg (35-45) H 07/13/16 19:56 ABG pO2 180 mmHg (85-104) H 07/13/16 19:56 ABG O2 Saturation 100 % (95-98) H 07/13/16 19:56 PT/INR, D-dimer PT 9.1 Seconds (9.4-12.1) L 07/13/16 19:58 Consult Discharge Plan - Plan Referrals: Caridad Rosales MD [Primary Care Provider] - 07/22/16 10:45 am
[2016-07-15] MEDS: *HR* HYDROcodone/Acet 10/325 mg TABLET PO PRN ×3 (02:25→10:45)
[2016-07-15] MEDS: Ipratropium Neb 0.5 MG NEBULIZER IH SCH ×3 (04:26→11:01)
[2016-07-15] MEDS: Albuterol 2.5 MG/3 ML NEBULIZER IH SCH ×3 (04:26→11:02)
[2016-07-15 04:36] LABS: Basophils # 0.1 K/mcL (0.0-0.2); Basophils % 0.6 %; Eosinophils % 0.3 %; Hematocrit 40.4 % (35.3-44.9); Hemoglobin 12.7 g/dL (11.5-15.4); Immature Granulocytes % 2.8 % (0-4); Lymphocytes # 1.1 K/mcL (0.6-4.6); Lymphocytes % 10.2 %; Mean Corpuscular HGB Conc 31.4 g/dL (31.6-35.5); Mean Corpuscular Volume 98.5 fL (83.0-100.0); Mean Platelet Volume 10.1 fL (9.4-12.4); Monocytes # 0.6 K/mcL (0.0-1.3); Monocytes % 5.3 %; Neutrophils # 8.5 K/mcL (1.6-8.9); Platelet Count 172 K/mcL (140-400); Red Cell Distribution Width 13.4 % (11.5-14.5); Segmented Neutrophils % 80.8 %
[2016-07-15 04:56] LABS: BUN/Creatinine Ratio 35 (6-26); Blood Urea Nitrogen 22 mg/dL (7-20); Calcium 8.6 mg/dL (8.6-10.8); Carbon Dioxide 24 mEq/L (19-29); Chloride 105 mEq/L (98-109); Glucose 66 mg/dL (70-99); Osmolality,Calculated 288 (280-300); Potassium 4.6 mEq/L (3.5-4.5); Sodium 138 mEq/L (136-145); eGFR For African Americans > 60 (> 60); eGFR For Non-African Americans > 60 (> 60)
[2016-07-15] MEDS: *HR* LORazepam 1 MG TABLET PO PRN ×2 (05:00→13:00)
[2016-07-15] MEDS: *HR* Heparin 5,000 UNIT/ML VIAL SQ SCH (06:32)
[2016-07-15] MEDS: Nicotine 14 MG PATCH.TD24 TD SCH (09:10)
[2016-07-15] MEDS: predniSONE 20 MG TABLET PO SCH (09:10)
[2016-07-15] MEDS: Furosemide 40 MG TABLET PO SCH (09:10)
[2016-07-15] MEDS: Morphine Oral CONC 5 MG/0.25 ML ORAL.SYG PO PRN (09:11)
[2016-07-15] MEDS: Azithromycin 250 MG TABLET PO SCH (09:11)
[2016-07-15] MEDS: carBAMazepine 200 MG TABLET PO SCH (09:11)
--- NOTE | 2016-07-15 10:58 | Discharge Summary ---
Date of Encounter: 07/15/16 Time of Encounter: 10:00 - Discharge Diagnosis (1) Acute exacerbation of chronic obstructive airways disease Priority: Primary Status: Acute (2) DVT prophylaxis Priority: Secondary Status: Acute (3) Hypertension Priority: Secondary Status: Acute Qualifiers: Hypertension type: essential hypertension Qualified Code(s): I10 - Essential (primary) hypertension (4) Anxiety about health Priority: Secondary Status: Chronic - Discharge Medications Prescriptions: Azithromycin [Zithromax] 500 mg PO DAILY #10 tablet Nicotine Patch [Nicoderm] 14 mg TD DAILY #14 patch.td24 PredniSONE See Taper PO DAILY #14 tablet Home Medications: Oxygen 4 l NS CONT 10/26/14 [History] Albuterol Sulfate [Albuterol Inhaler] 2 puff IH Q4H PRN 03/27/16 [History] Docusate [Colace] 100 mg PO BID #60 capsule 03/30/16 [Rx] Clopidogrel [Plavix] 75 mg PO DAILY #30 tablet 05/05/16 [Rx] CarBAMazepine [Tegretol] 200 mg PO BID 07/13/16 [History] Citalopram [CeleXA] 20 mg PO DAILY 07/13/16 [History] Dexamethasone [Decadron] 4 mg PO TID 07/13/16 [History] Esomeprazole Magnesium [Nexium] 40 mg PO DAILY 07/13/16 [History] Furosemide [Lasix] 40 mg PO DAILY 07/13/16 [History] HYDROcodone/Acet 10/325 mg [[place] 10-325 mg] 1 tab PO Q4HR PRN 07/13/16 [History ] LORazepam [Ativan] 0.5 mg PO Q4H PRN 07/13/16 [History] LORazepam [Ativan] 1 mg PO TID 07/13/16 [History] Promethazine [Phenergan] 25 mg PO Q6HR PRN 07/13/16 [History] Azithromycin [Zithromax] 500 mg PO DAILY #10 tablet 07/15/16 [Rx] Nicotine Patch [Nicoderm] 14 mg TD DAILY #14 patch.td24 07/15/16 [Rx] PredniSONE See Taper PO DAILY #14 tablet 07/15/16 [Rx] Allergies/Adverse Reactions: Allergies fluoxetine Allergy (Verified 05/03/16 12:09) Swelling of Lip/Tongue/Throat Sulfa (Sulfonamide Antibiotics) Allergy (Verified 05/03/16 08:17) Swelling of Lip/Tongue/Throat Hives - Notes to Outpatient Provider 1. Patient is on tapering down steroids, prednisone 40 mg daily 3 days, then 20 mg daily 3 days, then 10 mg daily 3 days, then resume her maintain dose 5 mg by mouth daily. Date of admission: 07/13/16 21:01 Primary care physician: Caridad Rosales Consults: 07/14/16 11:22 Consult to Patient Registration Supervisor [CONS] Routine Reason for SW Consult: [facility] Discharging clinician: Marga Paulson Anticipated date of discharge: 07/15/16 - Patient Status Disposition: Home Health Service Condition: Fair Overall status at discharge: patient is back to baseline - Discharge Instructions Follow Up With: Caridad Rosales MD [Primary Care Provider] - 07/22/16 10:45 am - Diet and Activity Activity: increase activity as tolerated Diet: low fat, low cholesterol, low salt diet Interval History: Ms. Quiroga is a 70 year old female with a history of advanced COPD with chronic respiratory failure requiring home oxygen at 2-3L/min comes in with worsening shortness of breath. She was in her usual state of health until the above began about 3 days prior to presentation. She reports that she has been having increasing sputum production with associated greenish coloration of the sputum. She has also been coughing more than usual and has been dyspneic requiring more oxygen flow than her baseline. She also reports dyspnea on exertion and reduced exercise tolerance since. She has been using her inhaler several times daily and also at night with minimal response. She came in today for worsening symptoms for further evaluation. She denies sick contacts, recent illness, fever or chills, noo nausea or vomiting and her appetite is normal. Hospital course: Ms. Quiroga is a 70 year old female admitted for COPD exacerbation, patient was placed on cardiac monitoring, antibiotic, steroid, and bronchodilator treatment. After treatment, her condition has been improved. Wheezing disappear. SOB is about at her baseline. Oxygen saturation 100% on 2 L nasal cannula oxygen, which was at her baseline. She had no labored breathing, RR 16. Saw and examined the patient today. She is awake and alert, oriented 3. Vital signs stable. Patient has home oxygen and home health arranged already. We will discharge patient home with tapering down steroids and 5 more day azithromycin. 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 Time spent discussing smoking cessation with patient: more than 10 minutes - Time Spent with Patient Total time spent providing and/or coordinating discharge services: Greater than 30 minutes - Constitutional Vitals: Temp Pulse Resp BP Pulse Ox 97.6 F 77 15 131/84 100 07/15/16 07:15 07/15/16 07:15 07/15/16 07:15 07/15/16 07:15 07/15/16 07:15 General appearance: Present: cachectic, A&O X 3, answers questions appropriately - Head Head exam: Present: atraumatic, normocephalic - Eye Eye exam: Present: PERRL, conjuntiva pink, sclera anicteric Pupils: Present: PERRL - Neck Neck exam general surgery: Present: supple, trachea midline. Absent: lymphadenopathy - Respiratory Respiratory exam: Present: decreased breath sounds (B/L), CTAB. Absent: accessory muscle use, rales, rhonchi, wheezes - Cardiovascular Cardiovascular exam: Present: RRR, +S1, +S2. Absent: diastolic murmur, gallop, rubs, systolic murmur - GI/Abdominal GI/Abdominal exam: Present: normal bowel sounds, soft, no peritoneal signs. Absent: distended, tenderness - Extremities Exam Extremities exam: Present: warm, radial pulses palpable and symetrical. Absent : calf tenderness, cyanotic, pedal edema - Neurological Exam Neurological exam: Present: CN II-XII intact, oriented X3, no focal deficits. Absent: pronater drift, facial droop, speech deficit - Skin Skin exam: Present: dry, intact
--- NOTE | 2016-07-15 11:06 | Physician Discharge Referral ---
Home Health/Hosp Referral Info Transfer to: Home Health Provider in Charge Post Discharge: PCP - Diagnosis (1) Acute exacerbation of chronic obstructive airways disease Status: Acute (2) DVT prophylaxis Status: Acute (3) Hypertension Status: Acute (4) Anxiety about health Status: Chronic - Respiratory Orders Oxygen / L per min (2-4) Smoking Cessation: Smoking cessation has been advised. For more information, call the [place] Tobacco Quit Line at 3-679-XSFF-NOW. - Diet/Nutrition Diet/Nutrition Orders: Cardiac - Services Needed Following services are medically necessary services: Nursing, Home Health Aide, Physical Therapy, Occupational Therapy - Transfer Medications Prescriptions: Azithromycin [Zithromax] 500 mg PO DAILY #10 tablet Nicotine Patch [Nicoderm] 14 mg TD DAILY #14 patch.td24 PredniSONE See Taper PO DAILY #14 tablet Home Medications: Oxygen 4 l NS CONT 10/26/14 [History] Albuterol Sulfate [Albuterol Inhaler] 2 puff IH Q4H PRN 03/27/16 [History] Docusate [Colace] 100 mg PO BID #60 capsule 03/30/16 [Rx] Clopidogrel [Plavix] 75 mg PO DAILY #30 tablet 05/05/16 [Rx] CarBAMazepine [Tegretol] 200 mg PO BID 07/13/16 [History] Citalopram [CeleXA] 20 mg PO DAILY 07/13/16 [History] Dexamethasone [Decadron] 4 mg PO TID 07/13/16 [History] Esomeprazole Magnesium [Nexium] 40 mg PO DAILY 07/13/16 [History] Furosemide [Lasix] 40 mg PO DAILY 07/13/16 [History] HYDROcodone/Acet 10/325 mg [[place] 10-325 mg] 1 tab PO Q4HR PRN 07/13/16 [History ] LORazepam [Ativan] 0.5 mg PO Q4H PRN 07/13/16 [History] LORazepam [Ativan] 1 mg PO TID 07/13/16 [History] Promethazine [Phenergan] 25 mg PO Q6HR PRN 07/13/16 [History] Azithromycin [Zithromax] 500 mg PO DAILY #10 tablet 07/15/16 [Rx] Nicotine Patch [Nicoderm] 14 mg TD DAILY #14 patch.td24 07/15/16 [Rx] PredniSONE See Taper PO DAILY #14 tablet 07/15/16 [Rx] Allergies/Adverse Reactions: Allergies fluoxetine Allergy (Verified 05/03/16 12:09) Swelling of Lip/Tongue/Throat Sulfa (Sulfonamide Antibiotics) Allergy (Verified 05/03/16 08:17) Swelling of Lip/Tongue/Throat Hives Certification: Further, I certify that my clinical findings support that this patient is homebound (i.e. absences from home require considerable and taxing effort and are for medical reasons or oriental orthodox services or infrequently or short duration when for other reasons) because: Homebound Reason: Patient requires assistance of a person or device to safely leave home Attestation: My signature below is to certify that this patient is under my care and that I, or nurse practitioner, or a physician's floor covering printer assistant working with me, has a face-to -face encounter with this patient.
[2016-07-15 11:35] VITALS: BP 110/74
== END 2016-07-15 12:57 | disposition home health service (06) ==
LOC: EMEROO 19:07 → 3BNU 19:07 → SUATTDRO 21:01 → 3BNU 21:58
PROVIDERS: ADMIT Internal Medicine; ATTEND Internal Medicine

== ENCOUNTER 2016-08-05 08:50 | Inpatient (IN) ==
[2016-08-05] MEDS ORDERED: methylPREDNISolone 125 MG/2 ML VIAL IVP ONE (08:57)
[2016-08-05] MEDS ORDERED: Ipratropium/Albuterol Neb 3 ML IH ONE (08:57)
--- NOTE | 2016-08-05 09:28 | Emergency Department Note ---
Disposition Clinical Impression: Acute exacerbation of chronic obstructive bronchitis Disposition: Admitted As Inpatient Condition: Critical SOB HPI - General Chief Complaint: ED Shortness of Breath/Dyspnea Stated Complaint: REYNALDO Time Seen by Provider: 08/05/16 08:57 Source: patient, EMS Limitations: no limitations Nursing Notes Reviewed: Yes Vital Signs Reviewed: Yes - History of Present Illness Mrs. Quiroga, 70-year-old female, presents from home via EMS with chief complaint of difficulty breathing. Onset 4-5 days ago and progressive. Became exponentially worse this morning when she called the squad. Patient states she safely cannot catch her breath. Admits to chills. Denies fever. Her symptoms have not improved with her at home pulmonary regimen including inhalers and nebulizers. Patient wears 3.5 - 4 mL oxygen nasal cannula while asleep in room air while awake. Patient also notes a productive cough-nonbloody, yellow sputum , different from her typical cough. Per EMS, patient was 92% on room air at arrival. 100% with supplemental oxygen during DuoNeb. - Related Data Home Medications Medication Instructions Recorded Confirmed Oxygen 4 l NS CONT 10/26/14 05/03/16 Albuterol Sulfate [Albuterol 2 puff IH Q4H PRN 03/27/16 07/13/16 Inhaler] Citalopram [CeleXA] 20 mg PO DAILY 07/13/16 07/13/16 Dexamethasone [Decadron] 4 mg PO TID 07/13/16 07/13/16 Esomeprazole Magnesium [Nexium] 40 mg PO DAILY 07/13/16 07/13/16 Furosemide [Lasix] 40 mg PO DAILY 07/13/16 07/13/16 HYDROcodone/Acet 10/325 mg [[place] 1 tab PO Q4HR PRN 07/13/16 07/13/16 10-325 mg] LORazepam [Ativan] 0.5 mg PO Q4H PRN 07/13/16 07/13/16 LORazepam [Ativan] 1 mg PO TID 07/13/16 07/13/16 Promethazine [Phenergan] 25 mg PO Q6HR PRN 07/13/16 07/13/16 carBAMazepine [Tegretol] 200 mg PO BID 07/13/16 07/13/16 Previous Rx's Medication Instructions Recorded Docusate [Colace] 100 mg PO BID #60 capsule 01/09/17 Clopidogrel [Plavix] 75 mg PO DAILY #30 tablet 05/05/16 Azithromycin [Zithromax] 500 mg PO DAILY #10 tablet 07/15/16 Nicotine Patch [Nicoderm] 14 mg TD DAILY #14 patch.td24 07/15/16 predniSONE [PredniSONE] See Taper PO DAILY #14 tablet 07/15/16 Azithromycin [Azithromycin 6-Tab 250 mg PO PER PKG DI #6 tab 08/04/16 Pack] predniSONE [PredniSONE] 20 mg PO DAILY #5 tablet 08/04/16 Allergies Allergy/AdvReac Type Severity Reaction Status Date / Time fluoxetine Allergy Swelling Verified 05/03/16 12:09 of Lip/Tongue/Throat Sulfa (Sulfonamide Allergy Swelling Verified 05/03/16 08:17 Antibiotics) of Lip/Tongue/Throat All systems ED: reviewed and negative except as stated. Constitutional: Reports: chills. Denies: fever Eyes: Denies: vision change ENT ED: Denies: congestion Cardiovascular: Reports: dyspnea on exertion. Denies: chest pain, palpitations , orthopnea, edema, syncope Respiratory: Reports: cough, dyspnea, wheezes, sputum production. Denies: hemoptysis, stridor Gastrointestinal: Denies: abdominal pain, nausea, vomiting, diarrhea, constipation Genitourinary: Denies: urgency, dysuria Musculoskeletal: Denies: back pain, neck pain Neurological: Reports: weakness. Denies: headache, numbness, paresthesias, confusion, abnormal gait, vertigo Past Medical History - Past Medical History Medical history: Reports: arthritis, asthma, cancer, COPD, GERD, hyperlipidemia , hypertension Surgical history: Reports: hip replacement, other Psychiatric history: Reports: anxiety, depression [employer] history: Reports: bilateral tubal ligation - Social History Smoking Status: Current every day smoker Smokeless Tobacco Status: No Alcohol use: Reports: none Drug use: Reports: none Physical Exam Vital signs reviewed - patient is not hypoxic. Afebrile. Tachycardic. No tachypnea. General: Patient is alert, oriented, and in moderate respiratory distress. Patient is cachectic, pale chested, breathing with mouth open. HEENT: No facial asymmetry. Head is normocephalic and atraumatic. PERRLA, EOMI. Nasal turbinates moist and pink. Posterior pharynx without exudates or cobblestoning. Trachea midline, no palpable thyroid nodules, no thyromegaly. Cardiovascular: Heart tachycardic rate and regular rhythm without clicks, rubs, gallops, or murmurs. No JVD. PMI nondisplaced. Lateral radial posterior tibial pulses equal at 2/4. No pedal edema. Respiratory: Symmetric chest rise with poor respiratory effort. Prolonged expiratory phase. Bilateral breath sounds have diffuse wheezing with coarse lung sounds. Abdomen: Scaphoid. Bowel sounds present normoactive x-4 quadrants. Abdomen is soft, nondistended, and nontender. Psych: Patient's affect is appropriate for situation. - General Limitations: no limitations General appearance: alert, in no apparent distress Course Course Narrative: Patient is not using accessory muscles to breathe however she is in distress and gulping air. She is cachectic likely from protein calorie malnutrition, barrel chested, and frail. Patient was seen and evaluated this facility 2 days ago and discharged with diagnosis acute exacerbation of COPD. Discharged with azithromycin Z-Aaron and prednisone 20 mg daily 5 days. Symptoms progressed despite this therapy. She was afebrile on intake at that time. Chest x-ray today suspicious for COPD. No acute changes noted on my evaluation. No acute disease noted by radiology. 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 D/ / Juventino Dumas MD / Juventino Dumas MD Interpreting Provider: Juventino Dumas MD shows increasing leukocytosis otherwise unremarkable from yesterday's labs. Leukocytosis likely from steroids plus a component of a stress response given her increased work of breathing. I do not clinically or radiographically suspect pneumonia at this time. Spoke with the admitting hospitalist, Dr. Molina, who agrees to admit the patient. Vital Signs Temperature 98.1 F 08/05/16 08:54 Pulse Rate 113 08/05/16 08:54 Respiratory Rate 18 08/05/16 08:54 Blood Pressure 116/73 08/05/16 08:54 O2 Sat by Pulse Oximetry 94 08/05/16 08:54 Temperature 98.1 F 08/05/16 08:54 Pulse Rate 101 08/05/16 09:45 Respiratory Rate 20 08/05/16 10:34 Blood Pressure 121/67 08/05/16 10:34 O2 Sat by Pulse Oximetry 92 08/05/16 09:49 Oxygen Delivery Oxygen Delivery Nasal Cannula Shortness of Breath/Dyspnea - Medical Records Medical records reviewed: Yes I reviewed the patient's medical records. - Lab Data Result diagrams: 08/05/16 09:31 08/05/16 09:31 Lab Results 08/05/16 08/05/16 08/05/16 Range/Units 09:31 09:31 09:31 WBC 16.4 H (4.3-11.1) K/mcL RBC 5.13 H (3.82-4.97) M/mcL Hgb 16.0 H (11.5-15.4) g/dL Hct 48.6 H (35.3-44.9) % MCV 94.7 (83.0-100.0) fL MCH 31.2 (28.0-33.3) pg MCHC 32.9 (31.6-35.5) g/dL RDW 13.2 (11.5-14.5) % Plt Count 381 (140-400) K/mcL MPV 9.1 L (9.4-12.4) fL Immature Gran % 1.9 (0-4) % Seg Neutrophils % 87.9 % Lymphocytes % 5.8 % Monocytes % 4.2 % Eosinophils % 0.0 % Basophils % 0.2 % Neutrophils # 14.4 H (1.6-8.9) K/mcL Lymphocytes # 1.0 (0.6-4.6) K/mcL Monocytes # 0.7 (0.0-1.3) K/mcL Eosinophils # 0.0 (0.0-0.6) K/mcL Basophils # 0.0 (0.0-0.2) K/mcL Sodium 138 (136-145) mEq/L Potassium 3.7 (3.5-4.5) mEq/L Chloride 91 L (98-109) mEq/L Carbon Dioxide 31 H (19-29) mEq/L BUN 21 H (7-20) mg/dL Creatinine 0.75 (0.57-1.11) mg/dL Est GFR ( Amer) > 60 (> 60) Est GFR (Non-Af Amer) > 60 (> 60) BUN/Creatinine Ratio 28 H (6-26) Glucose 101 H (70-99) mg/dL Calculated Osmolality 289 (280-300) Calcium 10.2 (8.6-10.8) mg/dL Troponin I 0.01 (0-0.03) ng/mL - Radiology Data Radiology results reviewed: Yes I reviewed the patient's radiology results. 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 D/ / Juventino Dumas MD / Juventino Dumas MD Interpreting Provider: Juventino Dumas MD - EKG Data EKG attestation: Yes I reviewed and interpreted this EKG. EKG results narrative: EKG dated 08/05/16 at 08:55 interpreted as sinus tachycardia with a rate of 106. WA 116, QRS 81,, QT/QTC 335/397. Normal axis. Nonspecific ST-T changes. Compared to previous dated 08/04/2016 shows no acute ischemic changes or comparison. Attestation Statement - Attestation Attestation: I examined this patient and my medical decision-making was reviewed with the PRIVACY COMPLIANCE MANAGER/PA/Advanced Practice Nurse/Resident Physician. I agree with the documented findings, disposition and treatment plan as described except to the extent set forth below. 0 patient emergency department difficulty in breathing. Coughing up green phlegm. History of COPD. Patient currently on hospice. Seen 2 days ago and placed on prednisone and a Z-Aaron. Getting worse. On exam she has diffuse expiratory wheezing with some tachypnea. Plan. After nebs. No infiltrate on chest x-ray. She is a white count is 16,000 this is likely from the steroid. We will switch her to Levaquin and she has a sputum change. Admitted to medicine.
[2016-08-05 09:38] LABS: Basophils % 0.2 %; Hematocrit 48.6 % (35.3-44.9); Immature Granulocytes % 1.9 % (0-4); Lymphocytes % 5.8 %; Mean Corpuscular HGB Conc 32.9 g/dL (31.6-35.5); Mean Corpuscular Hemoglobin 31.2 pg (28.0-33.3); Mean Corpuscular Volume 94.7 fL (83.0-100.0); Mean Platelet Volume 9.1 fL (9.4-12.4); Monocytes # 0.7 K/mcL (0.0-1.3); Monocytes % 4.2 %; Neutrophils # 14.4 K/mcL (1.6-8.9); Platelet Count 381 K/mcL (140-400); Red Blood Count 5.13 M/mcL (3.82-4.97); Red Cell Distribution Width 13.2 % (11.5-14.5); Segmented Neutrophils % 87.9 %
[2016-08-05 09:50] LABS: BUN/Creatinine Ratio 28 (6-26); Blood Urea Nitrogen 21 mg/dL (7-20); Calcium 10.2 mg/dL (8.6-10.8); Carbon Dioxide 31 mEq/L (19-29); Chloride 91 mEq/L (98-109); Glucose 101 mg/dL (70-99); Osmolality,Calculated 289 (280-300); Potassium 3.7 mEq/L (3.5-4.5); Sodium 138 mEq/L (136-145); eGFR For African Americans > 60 (> 60); eGFR For Non-African Americans > 60 (> 60)
[2016-08-05] MEDS ORDERED: levoFLOXacin 500 MG TABLET PO ONE (10:53)
--- NOTE | 2016-08-05 12:55 | Event Note ---
Date of Encounter: 08/05/16 Time of Encounter: 12:54 Patient seen and examined with nurse practitioner. Acute bronchitis and mild COPD exacerbation. Slight increase in oxygen requirements. We will give levofloxacin [id number] nebulizer treatments and PO steroids. expected hospital stay 48 hours.
[2016-08-05] MEDS ORDERED: Ipratropium/Albuterol Neb 3 ML IH PRN (13:30)
[2016-08-05] MEDS ORDERED: carBAMazepine 200 MG TABLET PO PRN (13:30)
[2016-08-05] MEDS ORDERED: *HR* LORazepam 0.5 MG TABLET PO PRN (13:30)
[2016-08-05] MEDS ORDERED: Albuterol 2.5 MG/3 ML NEBULIZER IH PRN (13:41)
--- NOTE | 2016-08-05 13:44 | Internal Med History&Physical ---
Date of Encounter: 08/05/16 Time of Encounter: 13:00 Assessment and Plan (1) Acute exacerbation of chronic obstructive bronchitis Current visit: Yes Status: Acute 1 patient has been experiencing increasing sputum production cough and difficulty breathing. We will continue with oxygen titrating to maintain SPO2 greater 92% 2 we will continue with bronchodilators 3 continuous steroids 4 Levaquin IV daily (2) End stage COPD Current visit: No Status: Chronic Continue with oxygen titrated maintain SPO2 greater than 92% 2 continue bronchodilators 3 continue with steroids (3) Leukocytosis Current visit: No Status: Acute WBC 16 Patient is on steroids suspect related to steroid use. 2 continue to monitor CBC Qualifiers: Leukocytosis type: unspecified Qualified Code(s): D72.829 - Elevated white blood cell count, unspecified (4) History of lung cancer Current visit: No Status: Chronic 1 presently stable continue with oxygen as needed (5) DVT prophylaxis Current visit: No Status: Acute Lovenox subcutaneous Internal Medicine - H&P: HPI Chief complaint: Difficulty in breathing Admitted From: Emergency Dept Plans for Post Hospital Care: Home History of present illness: Ms. 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 According to patient she has been experiencing 4-5 days of progressive shortness of breath which became worse this morning. She denies any fevers however admits to chills she does have a cough which she states is chronic however she is producing some yellow sputum which she feels is different. She wears 3-4 L of oxygen while sleeping hours been using it during the day despite the oxygen use as well as her do an S patient continued to experience shortness of breath. She denies any chest pain nausea vomiting diarrhea or palpitations. Patient did call the squad for assistance upon arrival patient's Spo2 was 92% on room air up on arrival to the ER patient was given DuoNeb and oxygen saturation improved to 100% chest x-ray was obtained which was not changed from previous x-ray CBC C shows leukocytosis otherwise unremarkable from previous lab work patient has been admitted for further workup and evaluation. Presently patient is groggy she arouses to verbal stimuli she states that she is sleepy and did not sleep well last night. She answers questions appropriately her lung sounds are clear throughout heart sounds S1 and S2 with no rubs gallops or clicks or murmurs noted. No lower extremity edema noted. She is hemodynamically stable this time. I reviewed this case Dr. Molina agrees with plan. Past Med Surg Social Fam HX - Past Medical History Medical history: arthritis, asthma, cancer, COPD, GERD, hyperlipidemia, hypertension Psychiatric history: anxiety, depression - Past Surgical History Surgical History: hip replacement - Social History Smoking Status: Current every day smoker Smokeless Tobacco Status: No Alcohol use: none Drug use: none - Family History Mother Living Status: Hx Family Cancer: Yes (Brain) Father Adopted: No Family Member Ethnicity: Non- Living Status: Hx Family Cancer: Yes (Lung) Internal Medicine - H&P: Meds Albuterol Sulfate [Albuterol Inhaler] 2 puff IH Q4HR PRN 08/05/16 [History] Azithromycin [Azithromycin 6-Tab Pack] 250 mg PO PER PKG DI 08/05/16 [History] Citalopram Hydrobromide [Celexa] 20 mg PO DAILY 08/05/16 [History] Clopidogrel [Plavix] 75 mg PO DAILY 08/05/16 [History] Dexamethasone [Decadron] 4 mg PO TID 08/05/16 [History] Esomeprazole Magnesium [Nexium] 40 mg PO DAILY 08/05/16 [History] Furosemide [Lasix] 20 mg PO DAILY 08/05/16 [History] Ipratropium/Albuterol Neb [Duoneb] 3 ml IH Q4H PRN 08/05/16 [History] LORazepam [Ativan] 0.5 mg PO Q4HR PRN 08/05/16 [History] LORazepam [Ativan] 1 mg PO TID 08/05/16 [History] Morphine Sulfate [Arymo ER] 30 mg PO Q12H 08/05/16 [History] Nicotine Patch [Nicoderm] 14 mg TD DAILY 08/05/16 [History] Oxygen 4 l NS CONT 08/05/16 [History] PredniSONE [Deltasone] 20 mg PO DAILY 08/05/16 [History] carBAMazepine [Tegretol] 200 mg PO BID PRN 08/05/16 [History] predniSONE [PredniSONE] 5 mg PO DAILY 08/05/16 [History] Allergies fluoxetine Allergy (Verified 08/05/16 10:55) Swelling of Lip/Tongue/Throat Sulfa (Sulfonamide Antibiotics) Allergy (Verified 08/05/16 10:55) Swelling of Lip/Tongue/Throat Hives All Systems PM: A 10-system review of systems was performed and is negative for pertinent findings except as documented above in the HPI. - Constitutional Constitutional: fatigue - EENT Nose, mouth and throat: no dysphagia, no nasal discharge, no neck pain, no sore throat - Cardiovascular Cardiovascular ROS IM: no chest pain, no diaphoresis, no dyspnea, no lightheadedness, no palpitations, no syncope - Respiratory Respiratory: cough, dyspnea, change in phlegm color - Gastrointestinal Gastrointestinal: no abdominal pain, no diarrhea, no hematemesis, no hematochezia, no melena, no nausea, no vomiting - Genitourinary Genitourinary: no change in urinary stream, no dysuria, no flank pain, no hematuria - Musculoskeletal Musculoskeletal ROS IM: no numbness, no tingling - Integumentary Integumentary IM: no rash, no unusual bruising - Neurological Neurological ROS: no confusion, no convulsions, no focal weakness, no numbness, no tingling, no tremor(s) - Hematologic/Lymphatic Hematologic/Lymphatic: easy bruising - Constitutional Vitals: Temp Pulse Resp BP Pulse Ox 97.6 F 80 15 113/78 97 08/05/16 11:41 08/05/16 11:41 08/05/16 11:41 08/05/16 11:41 08/05/16 12:39 General appearance: Present: A&O X 3, underweight - Head Head exam: Present: atraumatic, normocephalic - Eye Eye exam: Present: PERRL, conjuntiva pink, sclera anicteric Pupils: Present: PERRL - Neck Neck exam general surgery: Present: supple, trachea midline. Absent: lymphadenopathy - Respiratory Respiratory exam: Present: CTAB. Absent: accessory muscle use, rales, rhonchi, wheezes - Cardiovascular Cardiovascular exam: Present: RRR, +S1, +S2. Absent: diastolic murmur, gallop, rubs, systolic murmur - GI/Abdominal GI/Abdominal exam: Present: normal bowel sounds, soft, no peritoneal signs. Absent: distended, tenderness - Extremities Exam Extremities exam: Present: warm, radial pulses palpable and symetrical. Absent : calf tenderness, cyanotic, pedal edema - Neurological Exam Neurological exam: Present: CN II-XII intact, oriented X3, no focal deficits. 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 D/ / Juventino Dumas MD / Juventino Dumas MD Interpreting Provider: Juventino Dumas MD
[2016-08-05] MEDS: *HR* LORazepam 1 MG TABLET PO SCH ×2 (17:34→21:44)
[2016-08-05] MEDS: Nicotine 14 MG PATCH.TD24 TD SCH (17:34)
[2016-08-05] MEDS: *HR* Morphine Sulfate SR (12 HR) 30 MG TABLET.ER PO SCH (19:29)
[2016-08-06] MEDS ORDERED: *HR* Morphine 2 MG/ML SYRINGE IVP ONE ×2 (02:48→05:38)
[2016-08-06] MEDS ORDERED: *HR* Morphine 2 MG/ML SYRINGE ONE (03:22)
[2016-08-06] MEDS: *HR* Enoxaparin 40 MG/0.4 ML SYRINGE SQ SCH (05:44)
[2016-08-06 06:43] LABS: Basophils # 0.1 K/mcL (0.0-0.2); Basophils % 0.6 %; Eosinophils % 0.1 %; Hematocrit 37.8 % (35.3-44.9); Lymphocytes # 1.2 K/mcL (0.6-4.6); Lymphocytes % 9.7 %; Mean Corpuscular HGB Conc 32.3 g/dL (31.6-35.5); Mean Corpuscular Hemoglobin 31.3 pg (28.0-33.3); Mean Corpuscular Volume 96.9 fL (83.0-100.0); Mean Platelet Volume 9.7 fL (9.4-12.4); Monocytes % 8.2 %; Neutrophils # 10.1 K/mcL (1.6-8.9); Platelet Count 251 K/mcL (140-400); Red Cell Distribution Width 13.2 % (11.5-14.5); Segmented Neutrophils % 79.4 %
[2016-08-06 07:14] LABS: Hemoglobin 12.2 g/dL (11.5-15.4)
[2016-08-06 07:22] LABS: BUN/Creatinine Ratio 36 (6-26); Blood Urea Nitrogen 23 mg/dL (7-20); Calcium 8.9 mg/dL (8.6-10.8); Carbon Dioxide 30 mEq/L (19-29); Chloride 96 mEq/L (98-109); Glucose 58 mg/dL (70-99); Osmolality,Calculated 283 (280-300); Potassium 4.1 mEq/L (3.5-4.5); Sodium 136 mEq/L (136-145); eGFR For African Americans > 60 (> 60); eGFR For Non-African Americans > 60 (> 60)
[2016-08-06] MEDS: levoFLOXacin 500 MG TABLET PO SCH (08:03)
[2016-08-06] MEDS: predniSONE 20 MG TABLET PO SCH (08:03)
[2016-08-06] MEDS: Furosemide 20 MG TABLET PO SCH (08:03)
[2016-08-06] MEDS: *HR* LORazepam 1 MG TABLET PO SCH ×3 (08:04→20:03)
[2016-08-06] MEDS: *HR* Morphine Sulfate SR (12 HR) 30 MG TABLET.ER PO SCH ×2 (08:04→20:02)
[2016-08-06] MEDS: Nicotine 14 MG PATCH.TD24 TD SCH (08:39)
[2016-08-06] MEDS ORDERED: predniSONE 20 MG TABLET PO SCH (09:00)
[2016-08-06] MEDS ORDERED: Levofloxacin 750 MG/150 ML 750 MG/150 ML BAG IVPB SCH (09:00)
[2016-08-06] MEDS ORDERED: Ondansetron 4 MG/2 ML VIAL IVP PRN (10:50)
[2016-08-06] MEDS ORDERED: *HR* Promethazine 25 MG/ML VIAL IVP PRN (10:50)
[2016-08-06] MEDS ORDERED: *HR* Morphine 2 MG/ML SYRINGE IVP PRN (10:51)
[2016-08-06] MEDS ORDERED: *HR* LORazepam 2 MG/ML VIAL IVP PRN (10:51)
--- NOTE | 2016-08-06 13:50 | Internal Med Progress Note ---
Date of Encounter: 08/06/16 Time of Encounter: 09:30 - Assessment and plan (1) End stage COPD Current Visit: No Status: Chronic Assessment and plan: On examination, patient is unable to sit up secondary to weakness. Poor aeration throughout. She is end-stage COPD. She is on 4 L per nasal cannula continuously and is likely progressing towards needing pressure support, will add BiPAP as needed. She is at home with [facility] however she is requesting to be a full code at this time. Chest x-ray unremarkable for acute processes. We will continue to treat for her COPD exacerbation, palliative care has been brought on board. OT and PT are on board as well. She has a poor prognosis. 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 D/ / Juventino Dumas MD / Juventino Dumas MD Interpreting Provider: Juventino Dumas MD (2) Counseling regarding advanced care planning and goals of care Current Visit: No Status: Acute Assessment and plan: I spoke to the patient in detail regarding her CODE STATUS. We do have the DNR on file however she states that she wants to be a full code. Specifically, she does want chest compressions and does want intubated. Attempted to speak to the patient further regarding CODE STATUS given the highly unlikely probability of a successful code. Will continue to have these conversations and palliative care has been brought on board. (3) Code status needs review Current Visit: No Status: Acute (4) Acute exacerbation of chronic obstructive airways disease Current Visit: No Status: Acute (5) Acute and chronic respiratory failure Current Visit: Yes Status: Chronic Assessment and plan: Patient is too weak to change positions in bed, suspect she will likely need BiPAP. End-stage COPD. Qualifiers: Respiratory failure complication: unspecified whether with hypoxia or hypercapnia Qualified Code(s): J96.20 - Acute and chronic respiratory failure , unspecified whether with hypoxia or hypercapnia (6) Current smoker Current Visit: No Status: Chronic Assessment and plan: Patient continues to smoke and became very upset over night when she was not able to go outside to smoke. Continue nicotine replacement therapy. (7) Severe protein-calorie malnutrition Current Visit: No Status: Chronic Assessment and plan: Acute on chronic. Will add Ensure 3 times a day with meals. Patient states she simply not hungry but is amenable to trying a nutrition stimulant, discussed with her the choice between Megace and Marinol and she chose Marinol, will add Marinol to her regimen. (8) Chronic respiratory failure with hypoxia Current Visit: No Status: Chronic (9) Squamous cell carcinoma lung Current Visit: No Status: Chronic Assessment and plan: Stable on chest x-ray. Allegedly in remission for couple years. 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 D/ / Juventino Dumas MD / Juventino Dumas MD Interpreting Provider: Juventino Dumas MD Qualifiers: Laterality: right Qualified Code(s): C34.91 - Malignant neoplasm of unspecified part of right bronchus or lung (10) DVT prophylaxis Current Visit: No Status: Acute Assessment and plan: Subcutaneous Lovenox (11) Anxiety about health Current Visit: No Status: Chronic Assessment and plan: Patient appears terrified on examination and is tearful. She states that she wants everything done should she get sicker. Palliative on board. (12) Hypertension Current Visit: No Status: Chronic Assessment and plan: Currently controlled without the use of antihypertensive medications other than furosemide. We will continue to trend. Qualifiers: Hypertension type: essential hypertension Qualified Code(s): I10 - Essential (primary) hypertension (13) Severe peripheral arterial disease Current Visit: No Status: Chronic (14) PAD (peripheral artery disease) Current Visit: No Status: Chronic (15) Leukocytosis Current Visit: No Status: Acute Assessment and plan: Trending down, no signs of acute infection. Continue levofloxacin for COPD exacerbation. Likely secondary to steroid use. Qualifiers: Leukocytosis type: unspecified Qualified Code(s): D72.829 - Elevated white blood cell count, unspecified (16) GERD (gastroesophageal reflux disease) Current Visit: No Status: Chronic Assessment and plan: Denies current symptoms Qualifiers: Esophagitis presence: without esophagitis Qualified Code(s): K21.9 - Gastro -esophageal reflux disease without esophagitis - Subjective Interval history: Patient is seen and examined. On examination, patient is sitting in high [place] 's. Patient initially asleep and awakened easily to voice. Patient denies pain at this time but states she is extremely nauseated. She states she is unable to eat. She states she would like to sit on the edge of the bed but does not have enough strength to get to the edge of the bed. Patient is tearful and appears scared. She would not elaborate on her concerns at this time. - Constitutional Vitals: Temp Pulse Resp BP Pulse Ox 97.4 F L 90 22 109/74 100 08/06/16 10:59 08/06/16 10:59 08/06/16 10:59 08/06/16 10:59 08/06/16 10:59 General appearance: Present: cachectic, mild distress, A&O X 3, pleasant, underweight, answers questions appropriately - Head Head exam: Present: atraumatic, normocephalic - Eye Eye exam: Present: PERRL, conjuntiva pink, sclera anicteric Pupils: Present: PERRL - Neck Neck exam general surgery: Present: supple, trachea midline. Absent: lymphadenopathy - Respiratory Respiratory exam: Present: accessory muscle use, decreased breath sounds, prolonged expiratory phase, respiratory distress. Absent: rales, rhonchi, wheezes - Cardiovascular Cardiovascular exam: Present: RRR, +S1, +S2. Absent: diastolic murmur, gallop, rubs, systolic murmur - GI/Abdominal GI/Abdominal exam: Present: normal bowel sounds, soft, no peritoneal signs. Absent: distended, tenderness - Extremities Exam Extremities exam: Present: warm, radial pulses palpable and symetrical. Absent : calf tenderness, cyanotic, pedal edema - Neurological Exam Neurological exam: Present: alert, CN II-XII intact, oriented X3, no focal deficits, strengths equal and symetr throughout. Absent: pronater drift, facial droop, speech deficit - Skin Skin exam: Present: dry, intact, pallor, warm Internal Medicine: Result - Labs CBC & Chem 7: 08/06/16 06:24 08/06/16 06:24 Labs: Short CBC 08/06/16 Range/Units 06:24 WBC 12.6 H (4.3-11.1) K/mcL Hgb 12.2 D (11.5-15.4) g/dL Hct 37.8 (35.3-44.9) % Plt Count 251 (140-400) K/mcL Neutrophils # 10.1 H (1.6-8.9) K/mcL BMP 08/06/16 06:24 Sodium 136 Potassium 4.1 Chloride 96 L Carbon Dioxide 30 H BUN 23 H Creatinine 0.64 Glucose 58 L Calcium 8.9 Consult Discharge Plan - Plan Referrals: Caridad Rosales MD [Primary Care Provider] -
[2016-08-06] MEDS: Ipratropium/Albuterol Neb 3 ML IH SCH ×3 (15:53→23:32)
--- NOTE | 2016-08-06 16:10 | Palliative - Consult Note ---
Date of Encounter: 08/06/16 Time of Encounter: 14:00 - Assessment and Plan (1) Cigarette smoker Current Visit: No Status: Acute Assessment and plan: NicoDerm patch in place (2) Anxiety about health Current Visit: No Status: Chronic Assessment and plan: Patient has lorazepam as needed for anxiety. Caution with benzodiazepine use due to sedation. This time, patient is full code. Recommend continuing home dose of 1 mg 3 times a day. (3) Severe protein-calorie malnutrition Current Visit: No Status: Chronic Assessment and plan: Consult to nutrition (4) Acute exacerbation of chronic obstructive airways disease Current Visit: No Status: Acute Assessment and plan: management per hospitalis (5) Counseling regarding advanced care planning and goals of care Current Visit: No Status: Acute Assessment and plan: Ms. Quiroga has indicated to attending hospitalist a desire to revert back to full code. Upon my examination, she is lethargic. Received permission to contact her daughter/healthcare power of compliance attorney-Sheri Florian. Ms. Florian indicated that this has been a change in her goals of care. Discussed plan of care in the event that Ms. Lemuss breathing should deteriorate. Her daughter/alternate healthcare power of compliance attorney-Karolina Foster-is planning to come to the hospital to meet with her mother. The palliative care to continue to follow. Discussed case with hospitalist. (6) Dyspnea Current Visit: Yes Status: Acute Assessment and plan: Supplemental oxygen, DuoNeb's, steroids, may utilize morphine when necessary for breakthrough dyspnea. Qualifiers: Dyspnea type: shortness of breath Qualified Code(s): R06.02 - Shortness of breath Palliative-CN HPI - Data of Consult Patient: known to practice within the last 3 years Consult date: 08/06/16 Requesting Physician: Rosa Tong Primary Care Provider: Caridad Rosales - Consult Narrative Palliative Care/Comfort Measures: Palliative care Reason for consult: Goals of care History of present illness: Ms. Quiroga is a 70 year old female patient well known to the palliative care team from prior admissions. 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 Ms. Quiroga presented with complaints of progressive difficulty breathing over the past 4-5 days with yellow sputum production. Upon examination, she is lethargic. Additional history comes from patient's family and review of medical record. Ms. Tay daughter-Sheri Florian-indicates that she has had a progressive decline in her health in the past 3 months. She has a very poor appetite. Her daughter states, "all she does is sleep and smoke". Her daughter also stated that she smokes significant amount more when compared to the last several years. She has become incontinent of her bladder over the past month. Her daughter reports that she has also urinated on the furniture because she could not ambulate or transfer to the bedside commode. Her breathing has become more labored over the past month. Ms. Quiroga has been enrolled in [facility] hosp[facility] services in the past due to her end-stage lung disease. In the past, she has indicated desire for do not resuscitate status, however, upon this admission she requested to be a full code. The palliative care team was consulted to assist with goals of care management. OARRS report reviewed. CC: Rosa Tong Past Med Surg Social Fam HX - Past Medical History Source: old records reviewed, obtained from family Medical history: arthritis, asthma, cancer, COPD, GERD, hyperlipidemia, hypertension Psychiatric history: anxiety, depression - Past Surgical History Surgical History: hip replacement - Social History Smoking Status: Current every day smoker Smokeless Tobacco Status: No Alcohol use: none Drug use: none - Family History Mother Living Status: Hx Family Cancer: Yes (Brain) Father Adopted: No Family Member Ethnicity: Non- Living Status: Hx Family Cancer: Yes (Lung) Medications and Allergies Albuterol Sulfate [Albuterol Inhaler] 2 puff IH Q4HR PRN 08/05/16 [History] Azithromycin [Azithromycin 6-Tab Pack] 250 mg PO PER PKG DI 08/05/16 [History] Citalopram Hydrobromide [Celexa] 20 mg PO DAILY 08/05/16 [History] Clopidogrel [Plavix] 75 mg PO DAILY 08/05/16 [History] Dexamethasone [Decadron] 4 mg PO TID 08/05/16 [History] Esomeprazole Magnesium [Nexium] 40 mg PO DAILY 08/05/16 [History] Furosemide [Lasix] 20 mg PO DAILY 08/05/16 [History] Ipratropium/Albuterol Neb [Duoneb] 3 ml IH Q4H PRN 08/05/16 [History] LORazepam [Ativan] 0.5 mg PO Q4HR PRN 08/05/16 [History] LORazepam [Ativan] 1 mg PO TID 08/05/16 [History] Morphine Sulfate [Arymo ER] 30 mg PO Q12H 08/05/16 [History] Nicotine Patch [Nicoderm] 14 mg TD DAILY 08/05/16 [History] Oxygen 4 l NS CONT 08/05/16 [History] PredniSONE [Deltasone] 20 mg PO DAILY 08/05/16 [History] carBAMazepine [Tegretol] 200 mg PO BID PRN 08/05/16 [History] predniSONE [PredniSONE] 5 mg PO DAILY 08/05/16 [History] Allergies fluoxetine Allergy (Verified 08/05/16 10:55) Swelling of Lip/Tongue/Throat Sulfa (Sulfonamide Antibiotics) Allergy (Verified 08/05/16 10:55) Swelling of Lip/Tongue/Throat Hives ROS unobtainable: due to mental status Palliative Care-Exam - Constitutional Vitals: Temp Pulse Resp BP Pulse Ox 98.1 F 102 19 110/73 96 08/06/16 15:19 08/06/16 15:19 08/06/16 15:19 08/06/16 15:19 08/06/16 15:19 Exam: 70-year-old chronically ill-appearing female patient, lethargic, cachectic - Head Head Exam: Present: atraumatic - Eye Eye exam: Present: EOMI, PERRL - ENT ENT exam: Present: mucous membranes dry - Expanded ENT Exam Teeth exam: Present: edentulous - Respiratory Respiratory exam: Present: decreased breath sounds (Poor air exchange noted the bilateral lung aquino), respiratory distress (Mild). Absent: rales - Cardiovascular Cardiovascular exam: Present: RRR. Absent: systolic murmur - GI/Abdominal Exam GI/Abdominal exam: Present: soft. Absent: tenderness additional comments: Abdomen scaphoid in appearance - Additional comments: Incontinent of urine - Extremities Exam Extremities exam: Absent: normal inspection (Poor muscle tone noted to extremities) - Neurological Exam Neurological exam: Absent: alert (Lethargic at times, able to answer in 1-2 word sentences) - Psychiatric Psychiatric exam: Present: anxious - Skin Skin exam: Present: dry, warm Additional comments: Erythematous area to coccyx and bilateral buttocks. Ruborous appearance to the plantar surfaces of bilateral feet-with right foot more pronounced than the left. There are areas of eschar noted to the fourth toe of the right foot Internal Medicine - CN: Reslt - Labs CBC & Chem 7: 08/06/16 06:24 08/06/16 06:24 Consult Discharge Plan - Plan Referrals: Caridad Rosales MD [Primary Care Provider] - Palliative Quality Palliative Quality: Screen for Code Status: Yes, Screen for Goals of Care: Yes, Screen for Pain: Yes, If Pain Regimen Started, Initiate Bowel Regimen: Yes, Screen for Nausea/Vomitting: Yes
--- NOTE | 2016-08-06 17:12 | Electrocardiograph Report ---
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
[2016-08-06] MEDS: *HR* Morphine 2 MG/ML SYRINGE IVP PRN ×2 (17:42→23:36)
--- NOTE | 2016-08-06 19:05 | Event Note ---
Date of Encounter: 08/06/16 Time of Encounter: 17:30 Spoke to the patient again regarding her concerns. Her daughters present at the bedside. Patient stating she is very scared and after lengthy discussion, she still would like to be a full code even though the plan is likely for her to return to hospice tomorrow. Clinically, she is end-stage COPD. Her feet and her hands are purple with capillary refill of 2 seconds. She is exhausted and her aeration is poor. She is aware of what a code would entail and continues to request a full resuscitation.
[2016-08-07] MEDS: *HR* LORazepam 2 MG/ML VIAL IVP PRN ×2 (01:07→11:13)
[2016-08-07] MEDS: *HR* Morphine 2 MG/ML SYRINGE IVP PRN ×3 (01:35→06:18)
[2016-08-07] MEDS: Ipratropium/Albuterol Neb 3 ML IH SCH ×3 (04:00→11:30)
[2016-08-07 06:13] LABS: Basophils # 0.1 K/mcL (0.0-0.2); Basophils % 0.8 %; Eosinophils % 0.3 %; Hematocrit 43.5 % (35.3-44.9); Immature Granulocytes % 4.6 % (0-4); Lymphocytes # 1.3 K/mcL (0.6-4.6); Lymphocytes % 8.9 %; Mean Corpuscular HGB Conc 32.2 g/dL (31.6-35.5); Mean Corpuscular Hemoglobin 31.3 pg (28.0-33.3); Mean Corpuscular Volume 97.3 fL (83.0-100.0); Mean Platelet Volume 9.6 fL (9.4-12.4); Monocytes # 1.2 K/mcL (0.0-1.3); Monocytes % 8.2 %; Neutrophils # 11.2 K/mcL (1.6-8.9); Platelet Count 301 K/mcL (140-400); Red Blood Count 4.47 M/mcL (3.82-4.97); Red Cell Distribution Width 13.1 % (11.5-14.5); Segmented Neutrophils % 77.2 %
[2016-08-07] MEDS: *HR* Enoxaparin 40 MG/0.4 ML SYRINGE SQ SCH (06:17)
[2016-08-07 06:29] LABS: BUN/Creatinine Ratio 38 (6-26); Blood Urea Nitrogen 29 mg/dL (7-20); Calcium 9.1 mg/dL (8.6-10.8); Carbon Dioxide 36 mEq/L (19-29); Chloride 96 mEq/L (98-109); Glucose 90 mg/dL (70-99); Osmolality,Calculated 299 (280-300); Potassium 3.6 mEq/L (3.5-4.5); Sodium 142 mEq/L (136-145); eGFR For African Americans > 60 (> 60); eGFR For Non-African Americans > 60 (> 60)
[2016-08-07 07:01] VITALS: BP 116/75
[2016-08-07] MEDS: *HR* LORazepam 1 MG TABLET PO SCH (08:19)
[2016-08-07] MEDS: predniSONE 20 MG TABLET PO SCH (08:20)
[2016-08-07] MEDS: levoFLOXacin 500 MG TABLET PO SCH (08:20)
[2016-08-07] MEDS: Furosemide 20 MG TABLET PO SCH (08:20)
[2016-08-07] MEDS: *HR* Morphine Sulfate SR (12 HR) 30 MG TABLET.ER PO SCH (08:20)
[2016-08-07] MEDS: Nicotine 14 MG PATCH.TD24 TD SCH (08:20)
--- NOTE | 2016-08-07 09:53 | Palliative Progress Note ---
Date of Encounter: 08/07/16 Time of Encounter: 09:50 - Assessment and plan (1) Cigarette smoker Current Visit: No Status: Acute Assessment and plan: Continue with nicotine patch. Patient aware of smoking policy. (2) Anxiety about health Current Visit: No Status: Chronic Assessment and plan: Lorazepam as needed for anxiety/agitation. Scheduled TID with 0.5mg IV PRN for breakthrough anxiety. Continue upon discharge. (3) Severe protein-calorie malnutrition Current Visit: No Status: Chronic Assessment and plan: Encourage meals with supplements as tolerated. Pulmonary cachexia. Marinol started yesterday. (4) Acute exacerbation of chronic obstructive airways disease Current Visit: No Status: Acute (5) Counseling regarding advanced care planning and goals of care Current Visit: No Status: Acute Assessment and plan: Patient plans to return home with [facility]. [employer] emergency services manager following for [facility] needs[facility]. COde status to remain FULL. Reviewed code status multiple times yesterday with patient and family. [facility] aware of goals of care. (6) Dyspnea Current Visit: Yes Status: Acute Assessment and plan: Supplemental oxygen at 4 L/m. [place] BID for maintenance of dyspnea and chronic pain. Utilize PRN doses of Morphine for breakthrough pain or dyspnea. She has required 5 additional doses of Morphine in the past 24 hours. Qualifiers: Dyspnea type: shortness of breath Qualified Code(s): R06.02 - Shortness of breath - Time Spent With Patient Total time spent is greater than 50% in coordination of care (as documented) at patient's floor/unit and/or counseling patient: - Subjective Interval history: Patient lying in bed, arouses to verbal stimuli. Agreeable to return to hospice services. Requesting to be discharged so she can smoke. - Constitutional Vitals: Abnormal lab results WBC 14.5 K/mcL (4.3-11.1) H 08/07/16 05:59 Immature Gran % 4.6 % (0-4) H 08/07/16 05:59 Neutrophils # 11.2 K/mcL (1.6-8.9) H 08/07/16 05:59 Chloride 96 mEq/L (98-109) L 08/07/16 05:59 Carbon Dioxide 36 mEq/L (19-29) H 08/07/16 05:59 BUN 29 mg/dL (7-20) H 08/07/16 05:59 BUN/Creatinine Ratio 38 (6-26) H 08/07/16 05:59 POC Glucose 105 (58-89) H 08/06/16 14:51 Exam: 70-year-old female patient appearing chronically ill, cachectic, opens eyes to verbal cues but quickly returns to sleep. - Eye Eye exam: Present: EOMI - ENT ENT exam: Present: mucous membranes moist - Respiratory Additional comments: lungs with poor air exchange and accessory muscle use at times. - Cardiovascular Cardiovascular exam: Present: RRR - GI/Abdominal GI/Abdominal exam: Absent: tenderness Additional comments: abdomen scaphoid in appearance. - Additional comments: incontinent of urine - Extremities Exam Extremities exam: Absent: normal inspection Additional comments: bilateral feet with ruberous appearance to plantar aspect. Capillary refill 3 seconds. Necrotic area noted to 4th toe of right foot. - Neurological Exam Neurological exam: Present: alert, oriented X3, no focal deficits, strengths equal and symetr throughout - Psychiatric Psychiatric exam: Present: agitated, anxious - Skin Additional comments: erythematous area noted to coccyx with allevyn in place. Palliative Quality Palliative Quality: Screen for Code Status: Yes, Screen for Goals of Care: Yes, Screen for Pain: Yes, If Pain Regimen Started, Initiate Bowel Regimen: Yes, Screen for Nausea/Vomitting: Yes - Labs CBC & Chem 7: 08/07/16 05:59 08/07/16 05:59 Labs: Laboratory Results - last 24 hr 08/06/16 08/07/16 08/07/16 14:51 05:59 05:59 WBC 14.5 H RBC 4.47 Hgb 14.0 D Hct 43.5 MCV 97.3 MCH 31.3 MCHC 32.2 RDW 13.1 Plt Count 301 MPV 9.6 Immature Gran % 4.6 H Seg Neutrophils % 77.2 Lymphocytes % 8.9 Monocytes % 8.2 Eosinophils % 0.3 Basophils % 0.8 Neutrophils # 11.2 H Lymphocytes # 1.3 Monocytes # 1.2 Eosinophils # 0.0 Basophils # 0.1 Sodium 142 Potassium 3.6 Chloride 96 L Carbon Dioxide 36 H BUN 29 H Creatinine 0.76 Est GFR ( Amer) > 60 Est GFR (Non-Af Amer) > 60 BUN/Creatinine Ratio 38 H Glucose 90 POC Glucose 105 H Calculated Osmolality 299 Calcium 9.1 Consult Discharge Plan - Plan Additional Instructions: Follow-up with primary care provider within one to 2 weeks Referrals: Caridad Rosales MD [Primary Care Provider] - Prescriptions: Promethazine [Phenergan] 12.5 mg PO Q8HR PRN #15 tablet PRN Reason: Nausea And Vomiting Dronabinol [Marinol] 2.5 mg PO BIDLS #60 capsule Lactose-Reduced Food [Ensure Plus] 1 bottle PO TID #90 can levoFLOXacin [Levaquin] 500 mg PO DAILY #5 tablet LORazepam [Ativan] 1 mg PO TID #21 tablet Morphine Sulfate [Arymo ER] 30 mg PO Q12H #14 tab.po.er Oxycodone HCl 10 mg PO Q6H PRN #14 tab PRN Reason: Breakthrough Pain PredniSONE [Deltasone] 40 mg PO DAILY #10 tablet
--- NOTE | 2016-08-07 09:58 | Discharge Summary ---
Date of Encounter: 08/07/16 Time of Encounter: 09:45 - Discharge Diagnosis (1) End stage COPD Priority: Primary Status: Chronic Comments: On examination, patient is slightly less pale and less labored than yesterday. Poor aeration throughout. She is end-stage COPD. She is on 4 L per nasal cannula continuously and is likely progressing towards needing pressure support , but she did not require BiPap during this admission. She is at home with [facility] hosp[facility] however she is requesting to be a full code at this time. She will be going to [facility] respite care at [facility] with [facility]. (2) Counseling regarding advanced care planning and goals of care Priority: Primary Status: Acute Comments: Throughout the course of this 2 day admission, patient's CODE STATUS was discussed frequently with the patient and with the patient's daughter and the patient still insists upon being a full code. She does want chest compressions and does want intubated should the need arise. Further conversations regarding CODE STATUS at the discretion of her hospice team outpatient. (3) Code status needs review Priority: Primary Status: Acute (4) Acute exacerbation of chronic obstructive airways disease Priority: Primary Status: Acute (5) Acute and chronic respiratory failure Priority: Secondary Status: Chronic Comments: No increased need for oxygen during this admission Qualifiers: Respiratory failure complication: unspecified whether with hypoxia or hypercapnia Qualified Code(s): J96.20 - Acute and chronic respiratory failure , unspecified whether with hypoxia or hypercapnia (6) Current smoker Priority: Secondary Status: Chronic Comments: According to her daughter with whom she lives, patient sleeps, wakes up and smokes as many cigarettes as she can, then goes back to sleep. She states that she very rarely drinks or eats and simply smokes and sleeps all the time. At this point, smoking cessation counseling futile. (7) Severe protein-calorie malnutrition Priority: Secondary Status: Chronic Comments: We will send with Ensure 3 times a day with meals. Megace added to her regimen as an appetite stimulant and help with pain control (8) Chronic respiratory failure with hypoxia Priority: Secondary Status: Chronic (9) Squamous cell carcinoma lung Priority: Secondary Status: Chronic Comments: Stable on chest x-ray. Allegedly in remission for couple years. 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 D/ / Juventino Dumas MD / Juventino Dumas MD Interpreting Provider: Juventino Dumas MD Qualifiers: Laterality: right Qualified Code(s): C34.91 - Malignant neoplasm of unspecified part of right bronchus or lung (10) DVT prophylaxis Priority: Primary Status: Acute Comments: Subcutaneous Lovenox while admitted. (11) Anxiety about health Priority: Secondary Status: Chronic (12) Hypertension Priority: Secondary Status: Chronic Comments: Currently controlled without the use of antihypertensive medications other than furosemide. Follow-up outpatient Qualifiers: Hypertension type: essential hypertension Qualified Code(s): I10 - Essential (primary) hypertension (13) Severe peripheral arterial disease Priority: Secondary Status: Chronic (14) PAD (peripheral artery disease) Priority: Secondary Status: Chronic (15) Leukocytosis Priority: Primary Status: Acute Comments: Trended down, no signs of acute infection. Continue levofloxacin for COPD exacerbation. Likely secondary to steroid use. Qualifiers: Leukocytosis type: unspecified Qualified Code(s): D72.829 - Elevated white blood cell count, unspecified (16) GERD (gastroesophageal reflux disease) Priority: Secondary Status: Chronic Comments: denied current symptoms during this admission Qualifiers: Esophagitis presence: without esophagitis Qualified Code(s): K21.9 - Gastro -esophageal reflux disease without esophagitis - Discharge Medications Prescriptions: Promethazine [Phenergan] 12.5 mg PO Q8HR PRN #15 tablet PRN Reason: Nausea And Vomiting Dronabinol [Marinol] 2.5 mg PO BIDLS #60 capsule Lactose-Reduced Food [Ensure Plus] 1 bottle PO TID #90 can levoFLOXacin [Levaquin] 500 mg PO DAILY #5 tablet LORazepam [Ativan] 1 mg PO TID #21 tablet Morphine Sulfate [Arymo ER] 30 mg PO Q12H #14 tab.po.er Oxycodone HCl 10 mg PO Q6H PRN #14 tab PRN Reason: Breakthrough Pain PredniSONE [Deltasone] 40 mg PO DAILY #10 tablet Home Medications: Albuterol Sulfate [Albuterol Inhaler] 2 puff IH Q4HR PRN 08/05/16 [History] Citalopram Hydrobromide [Celexa] 20 mg PO DAILY 08/05/16 [History] Clopidogrel [Plavix] 75 mg PO DAILY 08/05/16 [History] Dexamethasone [Decadron] 4 mg PO TID 08/05/16 [History] Esomeprazole Magnesium [Nexium] 40 mg PO DAILY 08/05/16 [History] Furosemide [Lasix] 20 mg PO DAILY 08/05/16 [History] Ipratropium/Albuterol Neb [Duoneb] 3 ml IH Q4H PRN 08/05/16 [History] LORazepam [Ativan] 0.5 mg PO Q4HR PRN 08/05/16 [History] Nicotine Patch [Nicoderm] 14 mg TD DAILY 08/05/16 [History] Oxygen 4 l NS CONT 08/05/16 [History] carBAMazepine [Tegretol] 200 mg PO BID PRN 08/05/16 [History] predniSONE [PredniSONE] 5 mg PO DAILY 08/05/16 [History] Dronabinol [Marinol] 2.5 mg PO BIDLS #60 capsule 08/07/16 [Rx] LORazepam [Ativan] 1 mg PO TID #21 tablet 08/07/16 [Rx] Lactose-Reduced Food [Ensure Plus] 1 bottle PO TID #90 can 08/07/16 [Rx] Morphine Sulfate [Arymo ER] 30 mg PO Q12H #14 tab.po.er 08/07/16 [Rx] Oxycodone HCl 10 mg PO Q6H PRN #14 tab 08/07/16 [Rx] PredniSONE [Deltasone] 40 mg PO DAILY #10 tablet 08/07/16 [Rx] Promethazine [Phenergan] 12.5 mg PO Q8HR PRN #15 tablet 08/07/16 [Rx] levoFLOXacin [Levaquin] 500 mg PO DAILY #5 tablet 08/07/16 [Rx] Allergies/Adverse Reactions: Allergies fluoxetine Allergy (Verified 08/05/16 10:55) Swelling of Lip/Tongue/Throat Sulfa (Sulfonamide Antibiotics) Allergy (Verified 08/05/16 10:55) Swelling of Lip/Tongue/Throat Hives Date of admission: 08/06/16 14:38 Primary care physician: Caridad Rosales Consults: 08/06/16 16:24 Consult to Nutrition [CONS] Routine Comment: Consulting Provider: NUTRITION Reason for Dietary Consult: PO Supplementation Discharging clinician: Rosa Mon Anticipated date of discharge: 08/07/16 (sending to [facility] ) - Patient Status Disposition: Hospice - Medical Facility Condition: Critical Functional capacity at discharge: bed bound Overall status at discharge: patient is not back to baseline - Discharge Instructions Follow Up With: Caridad Rosales MD [Primary Care Provider] - Additional Instructions: Follow-up with primary care provider within one to 2 weeks - Diet and Activity Activity: increase activity as tolerated Diet: regular diet (with ensure TIDWM) Hospital course: Ms. Quiroga is a 70 year old female with past medical history of end-stage COPD on 4 L per nasal cannula continuously, lung cancer, GERD, hyperlipidemia, hypertension, anxiety/depression, continued tobacco abuse. Patient presented to the emergency department chief complaint of 4-5 day history of progressive shortness of breath. She denied any fevers but endorses chills and chronic, productive cough consistent with her baseline. Patient called EMS who transported her to the emergency department. Patient was a [facility] hospice patient at home. Chest x-ray in the emergency department equivocal. Patient was admitted to the hospitalist service for further evaluation and management. Patient was admitted and observed over the course of 2 days and was treated for COPD exacerbation. She is noted to be end-stage COPD with poor prognosis. Patient is aware that she is not going to get better however during this admission, she insisted upon a full CODE STATUS and would continually state that she feels as if she is going to recover from this disease. Palliative care was brought on board and had several discussion with the patient but she continued to endorse full CODE STATUS. She remained alert and oriented 3 during this admission. Patient did not have an appetite and she was given Ensure 3 times a day and she was also started on Marinol as an appetite stimulant and help with her pain. She was given IV morphine for breakthrough pain during this admission and required several doses so oxycodone 10 mg was added to her regimen for her breakthrough pain not controlled with her scheduled MS Contin. Patient continues to smoke heavily. Her daughter with whom she lives states that the patient sleeps and smokes and does not eat or drink. During this admission, patient was tearful and appeared frightened. Several conversations between hospitalists palliative care and the patient are conducted. Plan is to send her back on [facility] to respite care [facility]'s facility. Patient has decompensated over the past several months. She was discharged to [facility] and critical but stable condition. 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 D/ / Juventino Dumas MD / Juventino Dumas MD Interpreting Provider: Juventino Dumas MD - Time Spent with Patient Total time spent providing and/or coordinating discharge services: - Constitutional Vitals: Temp Pulse Resp BP Pulse Ox 97.4 F L 90 18 116/75 96 08/07/16 06:57 08/07/16 06:57 08/07/16 07:51 08/07/16 06:57 08/07/16 07:51 General appearance: Present: cachectic, A&O X 3, pleasant, severe distress ( moderate- baseline), underweight, answers questions appropriately - Head Head exam: Present: atraumatic, normocephalic - Eye Eye exam: Present: PERRL, conjuntiva pink, sclera anicteric Pupils: Present: PERRL - Neck Neck exam general surgery: Present: supple, trachea midline. Absent: lymphadenopathy - Respiratory Respiratory exam: Present: accessory muscle use, decreased breath sounds, prolonged expiratory phase, respiratory distress. Absent: rales, rhonchi, wheezes - Cardiovascular Cardiovascular exam: Present: RRR, +S1, +S2. Absent: diastolic murmur, gallop, rubs, systolic murmur - GI/Abdominal GI/Abdominal exam: Present: normal bowel sounds, soft, no peritoneal signs. Absent: distended, tenderness - Extremities Exam Extremities exam: Present: warm, radial pulses palpable and symetrical. Absent : calf tenderness, cyanotic, pedal edema - Expanded Upper Extremities Exam Hand wrist exam: Absent: normal inspection (cyanotic) Vascular exam: Present: pallor, vascular compromise. Absent: normal capillary refill - Expanded Lower Extremities Exam Foot/Toe exam: Absent: normal inspection Neuro vascular tendon exam: Present: abnormal cap refill, decreased fine/light touch, extremity cold to touch, pallor (cyanotic). Absent: no vascular compromise Gait: Present: not tested/not observed - Neurological Exam Neurological exam: Present: alert, CN II-XII intact, oriented X3, no focal deficits, strengths equal and symetr throughout. Absent: pronater drift, facial droop, speech deficit - Skin Skin exam: Present: cyanosis, dry, intact, pallor, warm
--- NOTE | 2016-08-07 10:29 | Physician Discharge Referral ---
ExtendedCare Referral Info Transfer To: [place] Provider in Charge: Jovanny Mon CNP Provider in Charge after Transfer: PCP (or hospice) Institutional Level of Care: Skilled - Diagnosis (1) End stage COPD Priority: Secondary Status: Chronic (2) Counseling regarding advanced care planning and goals of care Priority: Primary Status: Acute (3) Code status needs review Priority: Primary Status: Acute (4) Acute exacerbation of chronic obstructive airways disease Priority: Primary Status: Acute (5) Acute and chronic respiratory failure Priority: Secondary Status: Chronic (6) Current smoker Priority: Secondary Status: Chronic (7) Severe protein-calorie malnutrition Priority: Secondary Status: Chronic (8) Chronic respiratory failure with hypoxia Priority: Secondary Status: Chronic (9) Squamous cell carcinoma lung Priority: Secondary Status: Chronic (10) DVT prophylaxis Priority: Primary Status: Acute (11) Anxiety about health Priority: Secondary Status: Chronic (12) Hypertension Priority: Secondary Status: Chronic (13) Severe peripheral arterial disease Priority: Secondary Status: Chronic (14) PAD (peripheral artery disease) Priority: Secondary Status: Chronic (15) Leukocytosis Priority: Primary Status: Acute (16) GERD (gastroesophageal reflux disease) Priority: Secondary Status: Chronic Prognosis: Poor Aware of Diagnosis: Patient, Family Aware of Prognosis: Patient, Family - Transfer Medications Prescriptions: Promethazine [Phenergan] 12.5 mg PO Q8HR PRN #15 tablet PRN Reason: Nausea And Vomiting Dronabinol [Marinol] 2.5 mg PO BIDLS #60 capsule Lactose-Reduced Food [Ensure Plus] 1 bottle PO TID #90 can levoFLOXacin [Levaquin] 500 mg PO DAILY #5 tablet LORazepam [Ativan] 1 mg PO TID #21 tablet Morphine Sulfate [Arymo ER] 30 mg PO Q12H #14 tab.po.er Oxycodone HCl 10 mg PO Q6H PRN #14 tab PRN Reason: Breakthrough Pain PredniSONE [Deltasone] 40 mg PO DAILY #10 tablet Home Medications: Albuterol Sulfate [Albuterol Inhaler] 2 puff IH Q4HR PRN 08/05/16 [History] Citalopram Hydrobromide [Celexa] 20 mg PO DAILY 08/05/16 [History] Clopidogrel [Plavix] 75 mg PO DAILY 08/05/16 [History] Dexamethasone [Decadron] 4 mg PO TID 08/05/16 [History] Esomeprazole Magnesium [Nexium] 40 mg PO DAILY 08/05/16 [History] Furosemide [Lasix] 20 mg PO DAILY 08/05/16 [History] Ipratropium/Albuterol Neb [Duoneb] 3 ml IH Q4H PRN 08/05/16 [History] LORazepam [Ativan] 0.5 mg PO Q4HR PRN 08/05/16 [History] Nicotine Patch [Nicoderm] 14 mg TD DAILY 08/05/16 [History] Oxygen 4 l NS CONT 08/05/16 [History] carBAMazepine [Tegretol] 200 mg PO BID PRN 08/05/16 [History] predniSONE [PredniSONE] 5 mg PO DAILY 08/05/16 [History] Dronabinol [Marinol] 2.5 mg PO BIDLS #60 capsule 08/07/16 [Rx] LORazepam [Ativan] 1 mg PO TID #21 tablet 08/07/16 [Rx] Lactose-Reduced Food [Ensure Plus] 1 bottle PO TID #90 can 08/07/16 [Rx] Morphine Sulfate [Arymo ER] 30 mg PO Q12H #14 tab.po.er 08/07/16 [Rx] Oxycodone HCl 10 mg PO Q6H PRN #14 tab 08/07/16 [Rx] PredniSONE [Deltasone] 40 mg PO DAILY #10 tablet 08/07/16 [Rx] Promethazine [Phenergan] 12.5 mg PO Q8HR PRN #15 tablet 08/07/16 [Rx] levoFLOXacin [Levaquin] 500 mg PO DAILY #5 tablet 08/07/16 [Rx] Allergies/Adverse Reactions: Allergies fluoxetine Allergy (Verified 08/05/16 10:55) Swelling of Lip/Tongue/Throat Sulfa (Sulfonamide Antibiotics) Allergy (Verified 08/05/16 10:55) Swelling of Lip/Tongue/Throat Hives - Respiratory Orders Oxygen / L per min (4) Smoking Cessation: Smoking cessation has been advised. For more information, call the [place] Tobacco Quit Line at 2-017-JYDK-NOW. - Ancillary Orders May use pressure relief devices daily prn, May go on AMBER w/family/respon alliance party w /meds at nurse discretion PRN, May have alcoholic beverages, May consult with Dentist, Feed Weigher, Process Control Engineer PRN - Advance Directives Living Will: Yes Power of Communications Administrator: Yes Code Status: Full Code - Mobility Orders Chair - Rehabiliation Orders Rehab Potential: Poor Rehab Orders: ROM Exercises, Evaluation for Physical Therapy, Evaluation for Occupational Therapy, Evaluation for Speech Therapy - Treatments Skin tear care topically daily PRN per policy, May check for fecal impaction rectally daily PRN, Fleet enema rectally every other day PRN cleansing purposes - Diet Orders Regular House Supplement per Dietary: ensure TIDWM CERTIFICATION: I certify that the transfer of the above named patient to an Extended Care Facility is necessary for the continuing treatment of the diagnosis listed. The above information is true and accurate reflection of patient's current condition. Confidential - Redisclosure prohibited without a patient's written consent.
--- NOTE | 2016-08-07 17:27 | Physician Discharge Referral ---
Home Health/Hosp Referral Info Transfer to: Hospice Attending Provider: Jovanny Mon CNP Provider in Charge Post Discharge: PCP (PCP/hospice) - Diagnosis (1) End stage COPD Priority: Secondary Status: Chronic (2) Counseling regarding advanced care planning and goals of care Priority: Primary Status: Acute (3) Code status needs review Priority: Primary Status: Acute (4) Acute exacerbation of chronic obstructive airways disease Priority: Primary Status: Acute (5) Acute and chronic respiratory failure Priority: Secondary Status: Chronic (6) Current smoker Priority: Secondary Status: Chronic (7) Severe protein-calorie malnutrition Priority: Secondary Status: Chronic (8) Chronic respiratory failure with hypoxia Priority: Secondary Status: Chronic (9) Squamous cell carcinoma lung Priority: Secondary Status: Chronic (10) DVT prophylaxis Priority: Primary Status: Acute (11) Anxiety about health Priority: Secondary Status: Chronic (12) Hypertension Priority: Secondary Status: Chronic (13) Severe peripheral arterial disease Priority: Secondary Status: Chronic (14) PAD (peripheral artery disease) Priority: Secondary Status: Chronic (15) Leukocytosis Priority: Primary Status: Acute (16) GERD (gastroesophageal reflux disease) Priority: Secondary Status: Chronic - Respiratory Orders Oxygen / L per min (4) Smoking Cessation: Smoking cessation has been advised. For more information, call the [place] Tobacco Quit Line at 1-054-HPOENOW. - Diet/Nutrition Diet/Nutrition Orders: Mechanical Soft (with ensure TIDWM) - Activity Activity Orders: Chair - Services Needed Following services are medically necessary services: Nursing, Home Health Aide, Physical Therapy, Occupational Therapy, Speech Therapy - Transfer Medications Prescriptions: Promethazine [Phenergan] 12.5 mg PO Q8HR PRN #15 tablet PRN Reason: Nausea And Vomiting Dronabinol [Marinol] 2.5 mg PO BIDLS #60 capsule Lactose-Reduced Food [Ensure Plus] 1 bottle PO TID #90 can levoFLOXacin [Levaquin] 500 mg PO DAILY #5 tablet LORazepam [Ativan] 1 mg PO TID #21 tablet Morphine Sulfate [Arymo ER] 30 mg PO Q12H #14 tab.po.er Oxycodone HCl 10 mg PO Q6H PRN #14 tab PRN Reason: Breakthrough Pain PredniSONE [Deltasone] 40 mg PO DAILY #10 tablet Home Medications: Albuterol Sulfate [Albuterol Inhaler] 2 puff IH Q4HR PRN 08/05/16 [History] Citalopram Hydrobromide [Celexa] 20 mg PO DAILY 08/05/16 [History] Clopidogrel [Plavix] 75 mg PO DAILY 08/05/16 [History] Dexamethasone [Decadron] 4 mg PO TID 08/05/16 [History] Esomeprazole Magnesium [Nexium] 40 mg PO DAILY 08/05/16 [History] Furosemide [Lasix] 20 mg PO DAILY 08/05/16 [History] Ipratropium/Albuterol Neb [Duoneb] 3 ml IH Q4H PRN 08/05/16 [History] LORazepam [Ativan] 0.5 mg PO Q4HR PRN 08/05/16 [History] Nicotine Patch [Nicoderm] 14 mg TD DAILY 08/05/16 [History] Oxygen 4 l NS CONT 08/05/16 [History] carBAMazepine [Tegretol] 200 mg PO BID PRN 08/05/16 [History] predniSONE [PredniSONE] 5 mg PO DAILY 08/05/16 [History] Dronabinol [Marinol] 2.5 mg PO BIDLS #60 capsule 08/07/16 [Rx] LORazepam [Ativan] 1 mg PO TID #21 tablet 08/07/16 [Rx] Lactose-Reduced Food [Ensure Plus] 1 bottle PO TID #90 can 08/07/16 [Rx] Morphine Sulfate [Arymo ER] 30 mg PO Q12H #14 tab.po.er 08/07/16 [Rx] Oxycodone HCl 10 mg PO Q6H PRN #14 tab 08/07/16 [Rx] PredniSONE [Deltasone] 40 mg PO DAILY #10 tablet 08/07/16 [Rx] Promethazine [Phenergan] 12.5 mg PO Q8HR PRN #15 tablet 08/07/16 [Rx] levoFLOXacin [Levaquin] 500 mg PO DAILY #5 tablet 08/07/16 [Rx] Allergies/Adverse Reactions: Allergies fluoxetine Allergy (Verified 08/05/16 10:55) Swelling of Lip/Tongue/Throat Sulfa (Sulfonamide Antibiotics) Allergy (Verified 08/05/16 10:55) Swelling of Lip/Tongue/Throat Hives Certification: Further, I certify that my clinical findings support that this patient is homebound (i.e. absences from home require considerable and taxing effort and are for medical reasons or protestant services or infrequently or short duration when for other reasons) because: Homebound Reason: Patient requires assistance of a person or device to safely leave home, Absences from home are contraindicated except to recieve medical care, Leaving home requires considerable and taxing effort due to condition, Severity of cardiac or pulmonary status limits activity tolerance Attestation: My signature below is to certify that this patient is under my care and that I, or nurse practitioner, or a physician's assistant strength coach working with me, has a face-to -face encounter with this patient.
== END 2016-08-07 14:12 | disposition hospice, inpatient (51) | DRG 190 ==
LOC: EMEROO 08:50 → 3BNU 08:50
PROVIDERS: ADMIT Hospitalist; ATTEND Nurse Practitioner Family